=== PATIENT | female | born 1955 | race Caucasian/White ===

== ENCOUNTER → 2020-06-04 10:02 | Outpatient (BNVA) | payer OTHER, SELFPAY | PROVIDERS: PCP Internal Medicine; Visit Provider Hospitalist | DX: Z76.89 Persons encountering health services in other specified circumstances (principal) ==

== ENCOUNTER → 2020-09-03 08:29 | Outpatient (BNVA) | payer OTHER, SELFPAY | PROVIDERS: PCP Internal Medicine; Visit Provider Hospitalist ==

== ENCOUNTER → 2020-11-14 14:30 | Outpatient (BNVA) | payer OTHER, SELFPAY | PROVIDERS: PCP Internal Medicine; Visit Provider Hospitalist ==

== ENCOUNTER → 2021-01-13 14:21 | Outpatient (BNVA) | payer OTHER, SELFPAY | PROVIDERS: PCP Internal Medicine; Visit Provider Hospitalist | DX: R07.81 Pleurodynia (principal) ==

== ENCOUNTER → 2021-04-15 08:59 | Outpatient (BNVA) | payer OTHER, SELFPAY | PROVIDERS: PCP Internal Medicine; Visit Provider Hospitalist | DX: R07.81 Pleurodynia (principal) ==

== ENCOUNTER → 2021-06-10 08:35 | Outpatient (BNVA) | payer OTHER, SELFPAY | PROVIDERS: PCP Internal Medicine; Visit Provider Hospitalist | DX: R07.81 Pleurodynia (principal) ==

== ENCOUNTER → 2021-08-03 13:35 | Outpatient (BNVA) | payer OTHER, SELFPAY | PROVIDERS: PCP Internal Medicine; Visit Provider Hospitalist ==

== ENCOUNTER → 2021-09-28 10:21 | Outpatient (BNVA) | payer OTHER, SELFPAY | PROVIDERS: PCP Internal Medicine; Visit Provider Hospitalist | DX: Z13.89 Encounter for screening for other disorder (principal) ==

== ENCOUNTER → 2022-08-30 09:56 | Outpatient (BNVA) | payer OTHER, MEDICARE, SELFPAY | PROVIDERS: PCP Internal Medicine; Visit Provider Hospitalist | DX: Z13.89 Encounter for screening for other disorder (principal) ==

== ENCOUNTER 2022-10-27 09:09 | Outpatient (REF) | payer OTHER, MEDICARE, SELFPAY | END 2022-10-27 09:10 | disposition home or self-care (01) | LOC: HO.MDS 09:09 | PROVIDERS: Visit Provider Hospitalist | DX: J45.50 Severe persistent asthma, uncomplicated (principal) | CPT/HCPCS: 96372; J2356 ==

== ENCOUNTER 2022-11-24 09:03 | Outpatient (REF) | payer OTHER, MEDICARE, SELFPAY | END 2022-11-24 09:04 | disposition home or self-care (01) | LOC: HO.MDS 09:03 | PROVIDERS: Visit Provider Hospitalist | DX: J45.50 Severe persistent asthma, uncomplicated (principal) | CPT/HCPCS: 96372; 96374; J2356; J2930 ==

== ENCOUNTER → 2022-12-01 08:26 | Outpatient (BNVA) | payer OTHER, MEDICARE, SELFPAY | PROVIDERS: PCP Internal Medicine; Visit Provider Hospitalist ==

== ENCOUNTER 2023-02-02 08:43 | Outpatient (AMB) | payer OTHER, MEDICARE, SELFPAY ==
[2023-02-02 08:53] VITALS: BP 118/60; PULSE 89; O2SAT 95; BMI 29.5
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
== END 2023-02-02 09:17 | disposition home or self-care (01) ==
PROVIDERS: PCP Internal Medicine; Visit Provider Hospitalist
DX: J45.51 Severe persistent asthma with (acute) exacerbation (principal); I26.99 Other pulmonary embolism without acute cor pulmonale; G47.33 Obstructive sleep apnea (adult) (pediatric); Z99.89 Dependence on other enabling machines and devices; J98.11 Atelectasis; R06.02 Shortness of breath; R91.8 Other nonspecific abnormal finding of lung field; J38.3 Other diseases of vocal cords
CPT/HCPCS: 99214

== ENCOUNTER → 2023-02-02 08:43 | Outpatient (BNVA) | payer OTHER, MEDICARE, SELFPAY | PROVIDERS: PCP Internal Medicine; Visit Provider Hospitalist | DX: I26.99 Other pulmonary embolism without acute cor pulmonale (principal) ==

== ENCOUNTER 2023-03-28 09:00 | Outpatient (REF) | payer OTHER, MEDICARE, SELFPAY | END 2023-03-28 09:01 | disposition home or self-care (01) | LOC: HO.MDS 09:00 | PROVIDERS: Visit Provider Hospitalist | DX: J45.50 Severe persistent asthma, uncomplicated (principal) | CPT/HCPCS: 96372; J2356 ==

== ENCOUNTER 2023-04-06 08:25 | Outpatient (AMB) | payer OTHER, MEDICARE, SELFPAY ==
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
[2023-04-06 08:33] VITALS: BP 110/70; PULSE 79; O2SAT 100; BMI 29.5
== END 2023-04-06 08:57 | disposition home or self-care (01) ==
PROVIDERS: PCP Internal Medicine; Visit Provider Hospitalist
DX: R07.81 Pleurodynia (principal); J45.51 Severe persistent asthma with (acute) exacerbation; I26.99 Other pulmonary embolism without acute cor pulmonale; R06.02 Shortness of breath; R91.8 Other nonspecific abnormal finding of lung field; J38.3 Other diseases of vocal cords; R78.89 Finding of other specified substances, not normally found in blood; G47.33 Obstructive sleep apnea (adult) (pediatric); Z99.89 Dependence on other enabling machines and devices
CPT/HCPCS: 99214

== ENCOUNTER → 2023-04-06 08:25 | Outpatient (BNVA) | payer OTHER, MEDICARE, SELFPAY | PROVIDERS: PCP Internal Medicine; Visit Provider Hospitalist | DX: I26.99 Other pulmonary embolism without acute cor pulmonale (principal) ==

== ENCOUNTER 2023-04-27 09:05 | Outpatient (REF) | payer OTHER, MEDICARE, SELFPAY | END 2023-04-27 09:06 | disposition home or self-care (01) | LOC: HO.MDS 09:05 | PROVIDERS: Visit Provider Hospitalist | DX: J45.50 Severe persistent asthma, uncomplicated (principal) | CPT/HCPCS: 96372; J2356 ==

== ENCOUNTER 2023-05-25 09:08 | Outpatient (REF) | payer OTHER, MEDICARE, SELFPAY | END 2023-05-25 09:09 | disposition home or self-care (01) | LOC: HO.MDS 09:08 | PROVIDERS: Visit Provider Hospitalist | DX: J45.50 Severe persistent asthma, uncomplicated (principal) | CPT/HCPCS: 96372; J2356 ==

== ENCOUNTER 2023-06-08 08:48 | Outpatient (AMB) | payer MEDICARE, OTHER, SELFPAY ==
[2023-06-08 08:59] VITALS: BP 110/60; PULSE 89; O2SAT 96; BMI 27.3
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
== END 2023-06-08 09:40 | disposition home or self-care (01) ==
PROVIDERS: PCP Internal Medicine; Visit Provider Hospitalist
DX: R07.81 Pleurodynia (principal); J45.51 Severe persistent asthma with (acute) exacerbation; I26.99 Other pulmonary embolism without acute cor pulmonale; R06.02 Shortness of breath; R91.8 Other nonspecific abnormal finding of lung field; J38.3 Other diseases of vocal cords; G47.33 Obstructive sleep apnea (adult) (pediatric); Z99.89 Dependence on other enabling machines and devices
CPT/HCPCS: 99214

== ENCOUNTER → 2023-06-08 08:48 | Outpatient (BNVA) | payer MEDICARE, OTHER, SELFPAY | PROVIDERS: PCP Internal Medicine; Visit Provider Hospitalist | DX: J45.51 Severe persistent asthma with (acute) exacerbation (principal); G47.33 Obstructive sleep apnea (adult) (pediatric); R91.8 Other nonspecific abnormal finding of lung field; I26.99 Other pulmonary embolism without acute cor pulmonale; R06.02 Shortness of breath; R07.81 Pleurodynia; J38.3 Other diseases of vocal cords; Z99.89 Dependence on other enabling machines and devices | CPT/HCPCS: 99212 ==

== ENCOUNTER 2023-06-23 13:07 | Outpatient (REF) | payer MEDICARE, OTHER, SELFPAY | END 2023-06-23 13:08 | disposition home or self-care (01) | LOC: HO.MDS 13:07 | PROVIDERS: Visit Provider Hospitalist | DX: J45.50 Severe persistent asthma, uncomplicated (principal) | CPT/HCPCS: 96372; J2356 ==

== ENCOUNTER 2023-07-18 08:25 | Outpatient (REF) | payer MEDICARE, OTHER, SELFPAY | END 2023-07-18 08:26 | disposition home or self-care (01) | LOC: HO.MDS 08:25 | PROVIDERS: Visit Provider Hospitalist | DX: J45.50 Severe persistent asthma, uncomplicated (principal) | CPT/HCPCS: 96372; J2356 ==

== ENCOUNTER 2023-08-01 09:23 | Outpatient (AMB) | payer MEDICARE, OTHER, SELFPAY ==
[2023-08-01 09:27] VITALS: BP 126/70; PULSE 75; O2SAT 96; BMI 26.7
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
== END 2023-08-01 09:47 | disposition home or self-care (01) ==
PROVIDERS: PCP Internal Medicine; Visit Provider Hospitalist
DX: R07.81 Pleurodynia (principal); J45.51 Severe persistent asthma with (acute) exacerbation; I26.99 Other pulmonary embolism without acute cor pulmonale; R06.02 Shortness of breath; R91.8 Other nonspecific abnormal finding of lung field; J38.3 Other diseases of vocal cords; G47.33 Obstructive sleep apnea (adult) (pediatric); Z99.89 Dependence on other enabling machines and devices; J10.1 Influenza due to other identified influenza virus with other respiratory manifestations
CPT/HCPCS: 99214

== ENCOUNTER → 2023-08-01 09:23 | Outpatient (BNVA) | payer MEDICARE, OTHER, SELFPAY | PROVIDERS: PCP Internal Medicine; Visit Provider Hospitalist | DX: J45.51 Severe persistent asthma with (acute) exacerbation (principal); R07.81 Pleurodynia; I26.99 Other pulmonary embolism without acute cor pulmonale; R06.02 Shortness of breath; R91.8 Other nonspecific abnormal finding of lung field; J38.3 Other diseases of vocal cords; J10.1 Influenza due to other identified influenza virus with other respiratory manifestations; G47.33 Obstructive sleep apnea (adult) (pediatric); Z99.89 Dependence on other enabling machines and devices | CPT/HCPCS: 96372; 99212; J2930 ==

== ENCOUNTER 2023-08-15 09:08 | Outpatient (REF) | payer MEDICARE, OTHER, SELFPAY ==
[2023-08-15 09:12] VITALS: BP 112/59; PULSE 86; RESP 18; TEMP 36.4; O2SAT 98; BMI 26.7
== END 2023-08-15 09:09 | disposition home or self-care (01) ==
LOC: HO.MDS 09:08
PROVIDERS: Visit Provider Hospitalist
DX: J45.50 Severe persistent asthma, uncomplicated (principal)
CPT/HCPCS: 96372; J2356

== ENCOUNTER 2024-02-09 09:37 | Outpatient (AMB) | payer MEDICARE, OTHER, SELFPAY ==
[2024-02-09 09:42] VITALS: BP 118/68; PULSE 80; O2SAT 96; BMI 26.7
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
== END 2024-02-09 10:14 | disposition home or self-care (01) ==
PROVIDERS: PCP Internal Medicine; Visit Provider Hospitalist
DX: J45.51 Severe persistent asthma with (acute) exacerbation (principal); I26.99 Other pulmonary embolism without acute cor pulmonale; R06.02 Shortness of breath; R91.8 Other nonspecific abnormal finding of lung field; J38.3 Other diseases of vocal cords; G47.33 Obstructive sleep apnea (adult) (pediatric); Z99.89 Dependence on other enabling machines and devices
CPT/HCPCS: 99214; G2211

== ENCOUNTER → 2024-02-09 09:37 | Outpatient (BNVA) | payer MEDICARE, OTHER, SELFPAY | PROVIDERS: PCP Internal Medicine; Visit Provider Hospitalist | DX: J44.9 Chronic obstructive pulmonary disease, unspecified (principal); J45.51 Severe persistent asthma with (acute) exacerbation; G47.33 Obstructive sleep apnea (adult) (pediatric); I26.99 Other pulmonary embolism without acute cor pulmonale; R91.8 Other nonspecific abnormal finding of lung field; J38.3 Other diseases of vocal cords; I74.9 Embolism and thrombosis of unspecified artery; Z99.89 Dependence on other enabling machines and devices | CPT/HCPCS: 99212 ==

== ENCOUNTER 2024-05-08 09:26 | Outpatient (AMB) | payer MEDICARE, OTHER, SELFPAY ==
[2024-05-08 09:28] VITALS: BP 126/64; PULSE 97; O2SAT 98; BMI 27.7
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
== END 2024-05-08 10:09 | disposition home or self-care (01) ==
PROVIDERS: PCP Internal Medicine; Visit Provider Hospitalist
DX: J45.51 Severe persistent asthma with (acute) exacerbation (principal); J01.90 Acute sinusitis, unspecified; I26.99 Other pulmonary embolism without acute cor pulmonale; R06.02 Shortness of breath; R91.8 Other nonspecific abnormal finding of lung field; J38.3 Other diseases of vocal cords; G47.33 Obstructive sleep apnea (adult) (pediatric); Z99.89 Dependence on other enabling machines and devices
CPT/HCPCS: 99214; G2211

== ENCOUNTER → 2024-05-08 09:26 | Outpatient (BNVA) | payer MEDICARE, OTHER, SELFPAY | PROVIDERS: PCP Internal Medicine; Visit Provider Hospitalist | DX: J44.9 Chronic obstructive pulmonary disease, unspecified (principal); J45.51 Severe persistent asthma with (acute) exacerbation; J38.3 Other diseases of vocal cords; J01.90 Acute sinusitis, unspecified; G47.33 Obstructive sleep apnea (adult) (pediatric); I26.99 Other pulmonary embolism without acute cor pulmonale; R06.02 Shortness of breath; R91.8 Other nonspecific abnormal finding of lung field; Z79.52 Long term (current) use of systemic steroids; Z99.89 Dependence on other enabling machines and devices | CPT/HCPCS: 99212 ==

== ENCOUNTER 2024-05-17 09:20 | Outpatient (AMB) | payer MEDICARE, OTHER, SELFPAY ==
[2024-05-17 09:24] VITALS: BP 118/60; PULSE 97; O2SAT 96; BMI 27.5
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
--- OUTSIDE RECORDS SUMMARY | 2024-05-17 09:29 | XMS_ITS ---
Author Organization [facility] Address [address] [phone] Care Team Providers Care Plant Breeder Scientist Name Role Phone [facility] Primary Care Provider [phone] Allergies Allergen (clinical drug ingredient) Drug/Non Drug Allergy documented on EMR Reaction Allergy Type Onset Date Status sulfamethoxazole / trimethoprim Bactrim Unknown Drug Allergy Active diazepam Diazepam Unknown Drug Allergy Active Iodine Unknown Drug Allergy Active levofloxacin Levofloxacin Unknown Drug Allergy A ctive metoclopramide Metoclopramide HCl Unknown Drug Allergy Active omeprazole Omeprazole Unknown Drug Allergy Activ e Omnipaque Unknown Drug Allergy Active paroxetine Paxil Unknown Drug Allergy Active penicillin G Penicillin G Sodium Unknown Drug Allergy Active metoclopramide Reglan Unknown Drug Allergy Ac tive Sulfamethoxazole Unknown Drug Allergy Active Latex Gloves Unknown Drug Allergy Acti ve roflumilast Roflumilast Unknown Drug Allergy Act diya tiotropium Spiriva Respimat Chest Pain Drug Allergy Active Black Pepper-Turmeric Unknown Drug Allergy Active REASON FOR VISIT 1 week f/u Asthma Medications Medication SIG (Take, Route, Frequency, Duration) Notes Start Date End Date Status Doxycycline Monohydrate 100 MG Oral for 14 Days Active predniSONE 10 MG 1 tablet Orally Once a day Active Ramipril 10 MG 1 capsule Orally Onc e a day for 90 days Active Chlorthalidone 25 MG 0.5 Tablet Orally O nce a day for 90 days 01/02/2020 05/04/2025 Active Ipratropium-Albuterol 0.5-2.5 (3) MG/3ML 3 mL as needed Inhalation every 4 hrs for 90 days Not-Taking Combivent Respimat 20-100 MCG/ACT 1 puff as needed Inhalation every 6 hrs for 90 days Not-Taking Mucinex 600 MG 1 tablet as needed Orally every 12 hrs Not-Taking Trelegy Ellipta 100-62.5-25 MCG/ACT 1 puff Inhalation Once a day for 90 days Active Tezspire 210 MG/1.91ML as directed Subcutaneous Active Budesonide 0.5 MG/2ML 1 mL Inhalation Tw ice a day Active NexIUM 20 MG 1 capsule Orally Onc e a day for 90 days Active Claritin 10 MG 1 tablet Orally Once a day for 90 days 10/11/2024 Active Tylenol Extra Strength 500 MG 1 tablet as needed Orally every 6 hrs Active Vitamin D 125 MCG (5000 UT) 1 capsule Orally Once a day Active EpiPen 2-Leonardo 0.3 MG/0.3ML as directed Injection for 30 days 10/19/2022 Active Singulair 10 MG 1 tablet in the evening Orally Once a day for 90 days Active Erythromycin 2 % 1 application Externally Twice a day for 30 days 01/19/2023 Active ProAir RespiClick 108 (90 Base) MCG/ACT 2 puff as needed every 6 hrs for 90 days Active Social History Tobacco Use: Social History Observation Description Date Details (start date - stop date) Never Smoker NA - NA Alcohol Screen (Audit-C) Question Answer Notes Did you have a drink containing alcohol in the p ast year? No Points 0 Interpretation Negative Tobacco Control (Standard) Question Answer Notes Tobacco use: Nonsmoker Vital Signs Temperature 95.3 degrees Fahrenheit 05/09/20 24 Height 65 in 05/09/2024 Encounters Encounter Location Date Provider Diagnosis Liana Richey MD [address] [phone] 05/09/2024 L[facility] Moderate persistent asthma with (acute) exacerbation J45.41 Assessments Encounter Date Diagnosis (ICD Code) Assessment Notes Treatment Notes Treatment Clinical Notes Section Notes 05/09/2024 Moderate persistent asthma with (acute) exacerbation (ICD-10 - J45.41) Her peak flows are stable in the low 200s. She has seen pulmonary and she has been started on inhaled budesonide. In addition she was given an extension for her absence from work based on pulmonary evaluation. She will follow-up with pulmonary and taper down her prednisone until off. Can follow-up with prior pulmonary in terms of capacity and ability to return to work as well. 05/09/2024 Other This note was created with voice dictation recognition software and may contain errors of grammar and syntax. Also labs were reviewed with patient. Plan Of Treatment Medication Medication Name Sig Start Date Stop Date Notes predniSONE 10 MG 1 tablet Orally Once a day Ramipril 10 MG 1 capsule Orally Onc e a day for 90 days Chlorthalidone 25 MG 0.5 Tablet Orally O nce a day for 90 days 01/02/2020 05/04/2025 Next Appt Details Follow Up: 3 Months, Reason: Hypertension Provider Name:Liana Richey , 08/13/2024 03:00:00 PM, [address] [place] [address], [phone], Provider Name:Liana Richey , 04/30/2025 09:00:00 AM, [address] [place] [address], [phone], Progress Notes * Lorenza BOJORQUEZ FDOB: (68 yo F)Acc No.[id number]:05/09/2024 Progress Note Patient:Lorenza ROSS Provider:?[facility] MD :1955???Age:68 Y???Sex:Female D ate:05/09/2024 Address:[address] [place], [place] [phone] Subjective: * Chief Complaints: * ???1 week f/u Asthma * HPI: ???Asthma:?The patient presents for follow-up of asthma?which was diagnosed years ago.?Gastroesophageal reflux disease:?The patient presents for f/u of gastroesophageal reflux?that is long- standing.?Calcium abnormalities:?The patient presents for follow-up of calcium abnormality?which was diagnosed a year ago, vitamin D deficiency.?Chronic kidney disease:?Classification of renal failure is?Stage 2.?Glomerular filtration rate?CKD-EPI calculated at: 80.?Hypertension:?Patient presents for follow-up of hypertension?which is long-standing.? * Medical History:? * Surgical History:?Appendecto my 1998Tonsillectomy 1982Cholecystectomy TMJ Surgery, BL Bone spurs B/L rotator cuff tear repairs 05/2021 * Hospitalization/Major Diagno stic Procedure:?Asthma sthma 02/2022 * Family History:?Father: dece ased, Atrial fibrillation, hypertension, CHF, skin cancer at 86 years old.?Spouse: alive 67 yrs, Diabetes, hypertension.?Mother: , Lupus, diabetes, hypertension. at 66 years old.?Son(s): alive 32 yrs, hypothyroid.?Daughter(s): alive 41 yrs, , SVT, asthma 1 daughter alive 1985 asthma, polycystic syndrome , ulcerative colitis , anxiety, 1 daughter alive 1988 asthma ,migrainesLupus antibodies.?Siblings: alive, Hypertension, atrial fibrillation, history of lymphoma.?Maternal aunt: skin cancer.?1 sister(s) . 1 son(s) , 3 daughter(s) - healthy. .? Cousin: asthma No family history of: cancer-breast No family history of: cancer-colon Father: CVA (stroke) Mother: Diabetes, Hypertension Sister: Hyperlipidemia (AWV) Family history verified no changes since last visit. * Social History:?Tobacco Use:?Tobacco Control (Standard)?Tobacco use:?Nonsmoker ???Drugs/Alcohol:?Drugs?Have you used drugs other than those for medical reasons in the past 12 months??No ?Alcohol Screen (Audit-C)?Did you have a drink containing alcohol in the past year??No ?Points?0 ?Interpretation?Negative ?Caffeine?Intake:?none ?Do you smoke marijuana?: Denies. ?Do you drink alcohol?: No. ???Miscellaneous:?Exercise: yes, walking. 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 ???Household:?Household?Marital status:? * Medications:?TakingpredniSON E 10 MG Tablet 2 tablet Orally Once a day Erythromycin 2 % Gel 1 application Externally Twice a day ProAir RespiClick 108 (90 Base) MCG/ACT Aerosol Powder Breath Activated 2 puff as needed every 6 hrs Singulair 10 MG Tablet 1 tablet in the evening Orally Once a day Vitamin D 125 MCG (5000 UT) Capsule 1 capsule Orally Once a day Tylenol Extra Strength 500 MG Tablet 1 tablet as needed Orally every 6 hrs NexIUM 20 MG Capsule Delayed Release 1 capsule Orally Once a day Claritin 10 MG Tablet 1 tablet Orally Once a day , stop date 10/11/2024Ramipril 10 MG Capsule 1 capsule Orally Once a day Chlorthalidone 25 MG Tablet 0.5 Tablet Orally Once a day , stop date 05/23/2024EpiPen 2-Leonardo 0.3 MG/0.3ML Solution Auto-injector as directed Injection Trelegy Ellipta 100-62.5-25 MCG/ACT Aerosol Powder Breath Activated 1 puff Inhalation Once a day Tezspire 210 MG/1.91ML Solution Prefilled Syringe as directed Subcutaneous Budesonide 0.5 MG/2ML Suspension 1 mL Inhalation Twice a day Doxycycline Monohydrate 100 MG Tablet Oral Taking predniSONE 10 MG Tablet 2 tablet Orally Once a day Taking Erythromycin 2 % Gel 1 application Externally Twice a day Taking ProAir RespiClick 108 (90 Base) MCG/ACT Aerosol Powder Breath Activated 2 puff as needed every 6 hrs Taking Singulair 10 MG Tablet 1 tablet in the evening Orally Once a day Taking Vitamin D 125 MCG (5000 UT) Capsule 1 capsule Orally Once a day Taking Tylenol Extra Strength 500 MG Tablet 1 tablet as needed Orally every 6 hrs Taking NexIUM 20 MG Capsule Delayed Release 1 capsule Orally Once a day Taking Claritin 10 MG Tablet 1 tablet Orally Once a day , stop date 10/11/2024Taking Ramipril 10 MG Capsule 1 capsule Orally Once a day Taking Chlorthalidone 25 MG Tablet 0.5 Tablet Orally Once a day , stop date 05/23/2024Taking EpiPen 2-Leonardo 0.3 MG/0.3ML Solution Auto- injector as directed Injection Taking Trelegy Ellipta 100-62.5-25 MCG/ACT Aerosol Powder Breath Activated 1 puff Inhalation Once a day Taking Tezspire 210 MG/1.91ML Solution Prefilled Syringe as directed Subcutaneous Taking Budesonide 0.5 MG/2ML Suspension 1 mL Inhalation Twice a day Taking Doxycycline Monohydrate 100 MG Tablet Oral Not-Taking/PRNMucinex 600 MG Tablet Extended Release 12 Hour 1 tablet as needed Orally every 12 hrs Combivent Respimat 20-100 MCG/ACT Aerosol Solution 1 puff as needed Inhalation every 6 hrs Ipratropium-Albuterol 0.5-2.5 (3) MG/3ML Solution 3 mL as needed Inhalation every 4 hrs Medication List reviewed and reconciled with the patientNot-Taking/PRN Mucinex 600 MG Tablet Extended Release 12 Hour 1 tablet as needed Orally every 12 hrs Not-Taking/PRN Combivent Respimat 20-100 MCG/ACT Aerosol Solution 1 puff as needed Inhalation every 6 hrs Not-Taking/PRN Ipratropium- Albuterol 0.5-2.5 (3) MG/3ML Solution 3 mL as needed Inhalation every 4 hrs Medication List reviewed and reconciled with the patient * Allergies:?Penicillin G Sodi umLevofloxacinBactrimLatex GlovesOmnipaqueReglanRoflumilastOmeprazoleMetoclopramide HClDiazepamPaxilSulfamethoxazoleIodineSpiriva Respimat: Chest Pain - Side EffectsBlack Pepper-Turmericno[Allergies Verified] Objective: * Vitals:?Temp:95.3F, Ht:65in. Past Vitals:* 05/02/2024 Temp:96.4F, HR:89/min, Ht:65 in, Oxygen sat %:99% * 04/25/2024 Temp:96.7F, HR:88/min, Wt:18 5lbs, BMI:30.78Index, Ht:65in, Oxygen sat %:99% * 04/17/2024 Temp:97.2F, HR:85/min, BP:Si tting Right Arm: 122/64mm Hg, Wt:185lbs, BMI:30.78Index, Ht:65in, Oxygen sat %:95% * Examination: ???General Examination: ?GENERAL APPEARANCE:?Age appropriate, in no acute distress, well developed, well nourished.?HEAD:? atraumatic, normocephalic.?EYES:? sclera anicteric, extraocular movement full and smooth.?HEART:?regular rate and rhythm, S1, S2 normal.?LUNGS:?clear at baseline with forced expiratory wheeze.?EXTREMITIES:?no clubbing, cyanosis, or edema.?NEUROLOGIC:?alert and oriented, gait normal.?PSYCH:? good eye contact, speech clear.? Assessment: * Assessment: 1.?Moderate persistent asthm a with (acute) exacerbation - J45.41 (Primary)??? Plan: * Treatment: 2.?Others? Refill Ramipril Capsule, 10 MG, 1 capsule, Orally, Once a day, 90 days, 90, Refills 3;?Refill Chlorthalidone Tablet, 25 MG, 0.5 Tablet, Orally, Once a day, 90 days, 45, Refills 3.?? Clinical Notes: This note was created with voice dictation recognition software and may contain errors of grammar and syntax. Also labs were reviewed with patient.?? * Procedure Codes:? * Follow Up:?3 Months (Reason: Hypertension) * Billing Information: * Visit Code:? 53280 Office Visit, Est Pt., Level 3. * Procedure Codes:? Care Plan Details* * Sign off status: Completed true * Provider:?[facility] MD Date:?05/09 Generated for Isaak dewitt/Rut/Akilaitting on:?05/17/2024 09:28 AM EST History and Physical Notes * HPI (History of Present Illness) Category Sub-Category Detail Notes Category Not es Gastroesophageal reflux disease The patient presents for f/u of gastroesophageal reflux that is long-standing Hypertension Patient presents for follow-up of hypertension which is long-standing Chronic kidney disease Classification of renal failure is Stage 2 Glomerular filtration rate CKD-EPI calcu lated at: 80 Asthma The patient presents for follow-up of asthma which was diagnosed years ago Calcium abnormalities The patient presen ts for follow-up of calcium abnormality which was diagnosed a year ago, vitamin D deficiency Examination Category Sub-Category Detail Notes Category Not es General Examination GENERAL APPEARANCE: Age appr opriate, in no acute distress, well developed, well nourished HEAD: atraumatic, normocep halic EYES: sclera anicteric, ex traocular movement full and smooth HEART: regular rate and rhy thm, S1, S2 normal LUNGS: clear at baseline wi th forced expiratory wheeze NEUROLOGIC: alert and oriented, gait normal EXTREMITIES: no clubbing, cyanosi s, or edema PSYCH: good eye contact, sp eech clear
--- OUTSIDE RECORDS SUMMARY | 2024-05-17 09:29 | XMS_ITS ---
Author Organization [facility] Address [address] [place] [phone] Care Team Providers Care Telephone Clerk Telegraph Office Name Role Phone [facility] Primary Care Provider REASON FOR VISIT Jury Letter Request Encounters Encounter Location Date Provider Diagnosis Liana Richey MD [address] [place] [address] [place] [phone] 05/11/2024 [facility] Plan Of Treatment Next Appt Details Provider Name:Liana Richey , 08/13/2024 03:00:00 PM, [address] [place] [address], [phone], Provider Name:Liana Richey , 04/30/2025 09:00:00 AM, [address] [place] [address], [phone], Progress Notes * Lorenza BOJORQUEZ FDOB: (68 yo F)Acc No.[id number]:05/11/2024 Patient:?ROSEY Lorenza Cabrales :1955???Age:68 Y???Sex:Female [place]: [place], [address] * * Date:?
--- OUTSIDE RECORDS SUMMARY | 2024-05-17 09:29 | XMS_ITS ---
Author Organization [facility] Address [address] [phone] Care Team Providers Care Home Visitor Home Base Head Start Name Role Phone [facility] Primary Care Provider [phone] Allergies Allergen (clinical drug ingredient) Drug/Non Drug [...] Active REASON FOR VISIT 1 week f/u asthma Medications Medication SIG (Take, Route, Frequency, Duration) Notes Start Date End Date Status Tezspire 210 MG/1.91ML as directed Subcutaneous Active Trelegy Ellipta 100-62.5-25 MCG/ACT 1 puff Inhalation Once a day for 90 days Active Mucinex 600 MG 1 tablet as needed Orally every 12 hrs Not-Taking EpiPen 2-Leonardo 0.3 MG/0.3ML as directed Injection for 30 days 10/19/2022 Active Chlorthalidone 25 MG 0.5 Tablet Orally O nce a day for 90 days 01/02/2020 05/23/2024 Active Vitamin D 125 MCG (5000 UT) 1 capsule Orally Once a day Active NexIUM 20 MG 1 capsule Orally Onc e a day for 90 days Active Tylenol Extra Strength 500 MG 1 tablet as needed Orally every 6 hrs Active Ramipril 10 MG 1 capsule Orally Onc e a day for 90 days Active Claritin 10 MG 1 tablet Orally Once a day for 90 days 10/11/2024 Active Erythromycin 2 % 1 application Externally Twice a day for 30 days 01/19/2023 Active predniSONE 10 MG 2 tablet Orally Once a day Active Singulair 10 MG 1 tablet in the evening Orally Once a day for 90 days Active ProAir RespiClick 108 (90 Base) MCG/ACT 2 puff as needed every 6 hrs for 90 days Active Ipratropium-Albuterol 0.5-2.5 (3) MG/3ML 3 mL as needed Inhalation every 4 hrs for 90 days Not-Taking Combivent Respimat 20-100 MCG/ACT 1 puff as needed Inhalation every 6 hrs for 90 days Not-Taking Social History Tobacco Use: Social History Observation Description Date Details (start date - stop date) Never Smoker NA - NA Alcohol Screen (Audit-C) Question Answer Notes Did you have a drink containing alcohol in the p ast year? No Points 0 Interpretation Negative Tobacco Control (Standard) Question Answer Notes Tobacco use: Nonsmoker Vital Signs Temperature 96.4 degrees Fahrenheit 05/02/20 24 Heart Rate 89 /min 05/02/2024 Height 65 in 05/02/2024 Oximetry 99 % 05/02/2024 Encounters Encounter Location Date Provider Diagnosis Liana Richey MD [address] [phone] 05/02/2024 Liana Richey Moderate persistent asthma with (acute) exacerbation J45.41 Assessments Encounter Date Diagnosis (ICD Code) Assessment Notes Treatment Notes Treatment Clinical Notes Section Notes 05/02/2024 Moderate persistent asthma with (acute) exacerbation (ICD-10 - J45.41) Her peak flows are about 220 for most of the time now. They are relatively stable. She still using Combivent. Given the stability of her peak flows can try to taper down prednisone to 20 mg and reevaluate status. 05/02/2024 Other This note was created with voice dictation recognition software and may contain errors of grammar and syntax. Plan Of Treatment Medication Medication Name Sig Start Date Stop Date Notes predniSONE 10 MG 2 tablet Orally Once a day Next Appt Details Follow Up: 1 Week, Reason: A sthma Provider Name:Liana Richey , 08/13/2024 03:00:00 PM, [address] [place] [address], [phone], Provider Name:Isaaclety Kaiden , 04/30/2025 09:00:00 AM, [address] [place] [address], [phone], Progress Notes * Lorenza CURRIE FDOB: (68 yo F)Acc No.[id number]:05/02/2024 Progress Note Patient:?Lorenza CURRIE Provider:?Liana Richey MD :1955???Age:68 Y???Sex:Female D ate:05/02/2024 Address:[address] [place], [place] [phone] Subjective: * Chief Complaints: * ???1 week f/u asthma * HPI: ???Asthma:?The patient presents for follow-up [...] No. ???Miscellaneous:?Exercise: yes, walking. 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 ???Household:?Household?Marital status:? * Medications:?TakingErythromy hammad 2 % Gel 1 application Externally Twice [...] MG/1.91ML Solution Prefilled Syringe as directed Subcutaneous predniSONE 10 MG Tablet 3 tablet Orally Once a day Taking Erythromycin [...] date 05/23/2024Taking EpiPen 2-Leonardo 0.3 MG/0.3ML Solution Auto-injector as directed Injection Taking Trelegy Ellipta 100-62.5-25 MCG/ACT Aerosol Powder Breath Activated 1 puff Inhalation Once a day Taking Tezspire 210 MG/1.91ML Solution Prefilled Syringe as directed Subcutaneous Taking predniSONE 10 MG Tablet 3 tablet Orally Once a day Not-Taking/PRNMucinex 600 MG Tablet Extended Release 12 [...] as needed Inhalation every 6 hrs Not-Taking/PRN Ipratropium-Albuterol 0.5-2.5 (3) MG/3ML Solution 3 mL as needed Inhalation every 4 hrs Medication List reviewed and reconciled with the patient * Allergies:?Penicillin G Sodi umLevofloxacinBactrimLatex GlovesOmnipaqueReglanRoflumilastOmeprazoleMetoclopramide HClDiazepamPaxilSulfamethoxazoleIodineSpiriva Respimat: Chest Pain - Side EffectsBlack Pepper-Turmericno[Allergies Verified] Objective: * Vitals:?Temp:96.4F, HR:89/mi n, Ht:65in, Oxygen sat %:99%. Past Vitals:* 04/25/2024 Temp:96.7F, HR:88/min, Wt:18 5lbs, BMI:30.78Index, Ht:65in, Oxygen sat %:99% * 04/17/2024 Temp:97.2F, HR:85/min, BP:Si tting Right Arm: 122/64mm Hg, Wt:185lbs, BMI:30.78Index, Ht:65in, Oxygen sat %:95% * 04/09/2024 Temp:96.7F, HR:75/min, Wt:18 3lbs, BMI:30.45Index, Ht:65in, Oxygen sat %:97% * Examination: ???General Examination: ?GENERAL APPEARANCE:?Age appropriate, [...] - J45.41 (Primary)??? Plan: * Treatment: 2.?Others? Clinical Notes: This note was created with voice dictation recognition software and may contain errors of grammar and syntax.?? * Procedure Codes:? * Follow Up:?1 Week (Reason: A sthma) * Billing Information: * Visit Code:? 46762 Office Visit, Est Pt., Level 3. * Procedure Codes:? Care Plan Details* * Sign off status: Completed true * Provider:?Liana Richey MD Date:?05/02 Generated for Isaak dewitt/Rut/eTransmitting on:?05/17/2024 09:29 AM EST History and Physical Notes * [...]
--- OUTSIDE RECORDS SUMMARY | 2024-05-17 09:30 | XMS_ITS | Patient Health Record ---
Author Organization [facility] Address [address] [id number] Care Team Providers Care Cost Estimating Manager Name Role Phone [facility] Primary Care Provider [phone] Rachel Sanchez Unavailable [phone] Allergies Allergen (clinical drug ingredient) Drug/Non Drug [...] Active Black Pepper-Turmeric Unknown Drug Allergy Active Results Component Value Reference Range Notes HCV Antibody-[id number] Reviewed date:04/22/2024 07:39:03 AM Interpretation: Performing Lab:[facility], [address], [place], Phone - [phone], Director - Steve Notes/Report: Hep C Virus Ab Non Reactive Non Reactive HCV antibody alone does not differentiate between previously resolved infection and active infection. Equivocal and Reactive HCV antibody results should be followed up with an HCV RNA test to support the diagnosis of active HCV infection. LP+Non-HDL Cholesterol-[id number] Reviewed date:04/22/2024 07:39:03 AM Interpretation: Performing Lab:[facility] [place], [address] [place] [address], Phone - [phone], Director - MDJodry Notes/Report: Cholesterol, Total 215 100-199 mg/dL Triglycerides 146 0-149 mg/dL HDL Cholesterol 71 >39 mg/dL VLDL Cholesterol Manuel 25 5-40 mg/dL LDL Chol Calc ([facility]) 119 0-99 mg/dL Non-HDL Cholesterol 144 0-129 mg/dL Comp. Metabolic Panel (14)-3 Reviewed date:04/22/2024 07:39:03 AM Interpretation: Performing Lab:[facility] [place], [address] [place] [address], Phone - [phone], Director - MDJodry Notes/Report: Glucose 86 70-99 mg/dL BUN 18 8-27 mg/dL Creatinine 0.95 0.57-1.00 mg/dL eGFR 66 >59 mL/min/1.73 BUN/Creatinine Ratio 19 12-28 Sodium 141 134-144 mmol/L Potassium 4.1 3.5-5.2 mmol/L Chloride 98 96-106 mmol/L Carbon Dioxide, Total 25 20-29 mmol/L Calcium 9.7 8.7-10.3 mg/dL Protein, Total 6.8 6.0-8.5 g/dL Albumin 4.2 3.9-4.9 g/dL Globulin, Total 2.6 1.5-4.5 g/dL Bilirubin, Total 0.5 0.0-1.2 mg/dL Alkaline Phosphatase 91 44-121 IU/L AST (SGOT) 15 0-40 IU/L ALT (SGPT) 16 0-32 IU/L Albumin/Creatinine Ratio,Uri ne-[id number] Reviewed date:04/22/2024 07:39:03 AM Interpretation: Performing Lab:[facility] [place], [address] [facility], Phone - [phone], Director - MDJodry Notes/Report: Creatinine, Urine 58.8 Not Estab. mg/dL Albumin, Urine <3.0 Not Estab. ug/mL Alb/Creat Ratio <5 0-29 mg/g creat Normal: 0 - 29 Moderately increased: 30 - 300 Severely increased: >300 [id number] Reviewed date:04/22/2024 07:39:03 AM Interpretation: Performing Lab:[facility], [address] [place] [address], [place], Phone - [phone], Director - Steve Notes/Report: D-Dimer 0.35 0.00-0.49 mg/L FEU According to the assay millwright's published package insert, a normal (<0.50 mg/L FEU) D-dimer result in conjunction with a non-high clinical probability assessment, excludes deep vein thrombosis (DVT) and pulmonary embolism (PE) with high sensitivity. . D-dimer values increase with age and this can make VTE exclusion of an older population difficult. To address this, the [place] [employer], based on best available evidence and recent guidelines, recommends that clinicians use age-adjusted D-dimer thresholds in patients greater than 50 years of age with: a) a low probability of PE who do not meet all Pulmonary Embolism Rule Out Criteria, or b) in those with intermediate probability of PE. The formula for an age-adjusted D-dimer cut-off is age/100 . For example, a 60 year old patient would have an age-adjusted cut-off of 0.60 mg/L FEU and an 80 year old 0.80 mg/L FEU. URINARY MICROALBUMIN Reviewed date:07/11/2023 05:09:21 AM Interpretation: Performing Lab:Testing performed or reported by [facility], a Service of [address] [address] Christian Pierce MD, [employer] [facility]# [id number] Notes/Report: MICRO-ALBUMIN <12.0 (<20) MG/L The urine microalbumin test is designed to monitor renal function. When screening for Bence Minaya proteinuria, urine electrophoresis is recommended. MALB/CREAT RATIO Unable to calculate (0-20) MG/GM URINE CREAT FOR MICRO ALBUMIN 20.3 D-DIMER Reviewed date:07/11/2023 05:09:21 AM Interpretation: Performing Lab:Testing performed or reported by [facility] [employer], a Service of [address] [address] Christian Pierce MD, [employer] [facility]# [id number] Notes/Report: D-DIMER 0.31 (<1.01) mg/L FEU The millwright recommends that a d-Dimer value of <0.5 FEU mg/L can be used in conjunction with clinical criteria to help exclude Deep Vein Thrombosis (DVT) and/or Pulmonary Embolism (PE) in patients with a low pretest probability. COMPREHENSIVE METABOLIC PANE L Reviewed date:07/11/2023 05:09:21 AM Interpretation: Performing Lab:Testing performed or reported by [facility], a Service of [address] [address] Christian Pierce MD, [employer] [facility]# [id number] Notes/Report: GLUCOSE 97 (70-99) MG/DL BUN 14 (8-23) MG/DL CREATININE 0.9 (0.5-1.0) MG/DL SODIUM 144 (133-145) MMOL/L POTASSIUM 3.7 (3.6-5.2) MMOL/L CHLORIDE 102 (98-107) MMOL/L BICARBONATE 28 (22-29) MMOL/L ANION GAP 14 (4-17) ALBUMIN 4.3 (3.4-4.8) GM/DL CALCIUM 10.0 (8.6-10.5) MG/DL BILIRUBIN,TOTAL 0.5 (0-1.2) MG/DL TOTAL PROTEIN 6.8 (6.2-8.2) GM/DL AG RATIO 1.7 AST 16 (0-32) U/L ALK PHOS 93 (35-104) U/L ALT 14 (0-33) U/L ESTIMATED GFR CREATININE 70 Creatinine based estimated glomerular filtration (eGFR) in adults is calculated using the National Kidney Foundation recommended 2020 CKD-EPI equation. Estimates GFR from serum creatinine, age and sex. COMPLETE URINALYSIS Reviewed date:07/11/2023 05:09:21 AM Interpretation: Performing Lab:Testing performed or reported by [facility], a Service of [address] [address] Christian Pierce MD, [employer] [facility]# [id number] Notes/Report: APPEAR/COLOR COLORLESS CLEAR SP. GRAVITY <1.005 (1.002-1.030) URINE PH 7.0 (5.0-8.0) URINE ALBUMIN NEGATIVE (NEG) URINE GLUCOSE NEGATIVE (NEG) URINE KETONES NEGATIVE (NEG) URINE BILIRUBIN NEGATIVE (NEG) URINE HEMOGLOBIN NEGATIVE (NEG) URINE NITRITE NEGATIVE (NEG) URINE LEUKOCYTE 1+ (NEG) UROBILINOGEN NORMAL (NORM) MG/DL URINE WBCs <1 (0-5) /HPF URINE RBCs <1 (0-3) /HPF SQUAMOUS EPITH 1 (0-8) /HPF COMPLETE CBC WITH DIFF Reviewed date:07/11/2023 05:09:21 AM Interpretation: Performing Lab:Testing performed or reported by [facility], a Service of [address] [address] Christian Pierce MD, [employer] [facility]# [id number] Notes/Report: WBC 8.9 (4.0-11.0) K/MM3 RBC 4.73 (4.20-5.40) M/MM3 HGB 12.9 (11.7-15.5) GM/DL HCT 41.6 (35.7-45.8) % MCV 87.9 (80.0-100.0) FL MCH 27.3 (27.0-34.0) PG MCHC 31.0 (33.0-37.0) g/dL PLT 267 (150-460) K/MM3 RDW-SD 44.8 (<47.0) FL MPV 10.2 (9.4-12.4) FL AUTOMATED NRBC 0.0 ABS. NRBC 0.0 NEUT # 6.1 (1.3-7.0) K/MM3 LYMPH # 2.1 (0.8-3.1) K/MM3 MONO# 0.5 (0.4-0.9) K/MM3 EO # 0.1 (0.0-0.4) K/MM3 BASO # 0.0 (0.0-0.1) K/MM3 ABS. IMM GRAN 0.0 NEUT 68.6 (44-76) % LYMPH 23.9 (15-43) % MONOCYTE 5.3 (4.5-10.5) % EO 1.6 (0-6) % BASO 0.3 (0-2) % IMM GRAN 0.3 25OH VITAMIN D Reviewed date:07/11/2023 05:09:21 AM Interpretation: Performing Lab:Testing performed or reported by [facility], a Service of [address] [address] Christian Pierce MD, [employer] [place]# [id number] Notes/Report: 25OH VITAMIN D 23.2 (20-50) NG/ML Chest 2 Views Frontal and La t Reviewed date:04/25/2024 06:05:05 PM Interpretation: Performing Lab: Notes/Report: Examination: Chest performed on 04/25/2024. History: Cough. Findings: Frontal and lateral views of the chest are compared to a prior study dated 02/13/2024. The cardiac and mediastinal silhouettes are within normal limits. The lungs are clear. Osteophyte formation within the thoracic spine is noted. Impression: There is no acute cardiopulmonary disease. WSN: [id number] Ordering Physician: Liana Riche[facility] Dictated By: Michelle Child MD Examination: Chest performed on 04/25/2024. History: Cough. Findings: Frontal and lateral views of the chest are compared to a prior study dated 02/13/2024. The cardiac and mediastinal silhouettes are within normal limits. The lungs are clear. Osteophyte formation within the thoracic spine is noted. Impression: There is no acute cardiopulmonary disease. WSN: [id number] Ordering Physician: Liana R[facility]y Vitamin D, [id number] Reviewed date:04/22/2024 07:39:03 AM Interpretation: Performing Lab:[facility] [place], [address] [facility], Phone - [phone], Director - Steve Notes/Report: Vitamin D, 25-Hydroxy 23.6 30.0-100.0 ng/mL Vitamin D deficiency has been defined by the [place] [employer] and an Endocrine Society practice guideline as a level of serum 25-OH vitamin D less than 20 ng/mL (1,2). The Endocrine Society went on to further define vitamin D insufficiency as a level between 21 and 29 ng/mL (2). 1. IOM ([place] [employer]). 2010. Dietary reference intakes for calcium and D. [place]: The National Academies Press. 2. Daniel MF, Peace [place], Charles-Brannon LOPEZ, et al. Evaluation, treatment, and prevention of vitamin D deficiency: an Endocrine Society clinical practice guideline. JCEM. 2010; 96(7):1911-30. CBC With Differential/Platel et-[id number] Reviewed date:04/22/2024 07:39:03 AM Interpretation: Performing Lab:[facility] [place], [address] [facility], [place], Phone - [phone], Director - MDJodry Notes/Report: WBC 12.0 3.4-10.8 x10E3/uL RBC 5.06 3.77-5.28 x10E6/uL Hemoglobin 14.1 11.1-15.9 g/dL Hematocrit 43.0 34.0-46.6 % MCV 85 79-97 fL MCH 27.9 26.6-33.0 pg MCHC 32.8 31.5-35.7 g/dL RDW 13.3 11.7-15.4 % Platelets 281 150-450 x10E3/uL Neutrophils 69 Not Estab. % Lymphs 20 Not Estab. % Monocytes 9 Not Estab. % Eos 1 Not Estab. % Basos 0 Not Estab. % Neutrophils (Absolute) 8.3 1.4-7.0 x10E3/uL Lymphs (Absolute) 2.4 0.7-3.1 x10E3/uL Monocytes(Absolute) 1.1 0.1-0.9 x10E3/uL Eos (Absolute) 0.1 0.0-0.4 x10E3/uL Baso (Absolute) 0.0 0.0-0.2 x10E3/uL Immature Granulocytes 1 Not Estab. % Immature Grans (Abs) 0.1 0.0-0.1 x10E3/uL Urinalysis, Complete-[id number] Reviewed date:04/22/2024 07:39:03 AM Interpretation: Performing Lab:[facility] [place], [address] [place] [address], Phone - [phone], Director - [facility] Notes/Report: Specific Hana 1.011 1.005-1.030 pH 7.5 5.0-7.5 Urine-Color Yellow Yellow Appearance Clear Clear WBC Esterase 3+ Negative Protein Negative Negative/Trace Glucose Negative Negative Ketones Negative Negative Occult Blood Negative Negative Bilirubin Negative Negative Urobilinogen,Semi-Qn 0.2 0.2-1.0 mg/dL Nitrite, Urine Negative Negative Microscopic Examination See below: Micr oscopic was indicated and was performed. WBC 0-5 0 - 5 /hpf RBC None seen 0 - 2 /hpf Epithelial Cells (non renal) 0-10 0 - 10 /hpf Casts None seen None seen /lpf Bacteria Few None seen/Few Respiratory Profile, PCR Reviewed date:07/30/2023 10:00:17 AM Interpretation: Performing Lab:Testing performed or reported by [facility], a Service of [facility], [facility] [address], [place] [address] Christian Pierce MD, [employer] [place]# [id number] Notes/Report: Adenovirus Not Detected Reference range : Not Detected Coronavirus HKU1 (not COVID-19 Not Detected Reference range: Not Detected Coronavirus NL63 (not COVID-19 Not Detected Reference range: Not Detected Coronavirus 229E (not COVID-19 Not Detected Reference range: Not Detected Coronavirus OC43 (not COVID-19 Not Detected Reference range: Not Detected Human Metapneumovirus Not Detected Refere nce range: Not Detected Human Rhinovirus/Enterovirus Not Detected Reference range: Not Detected Influenza A DETECTED Reference range : Not Detected Influenza A/H1 TEST NOT PERFORMED (NOTE) Test not performed Influenza A/H1-2009 DETECTED Referenc e range: Not Detected Influenza A/H3 TEST NOT PERFORMED (NOTE) Test not performed Influenza B Not Detected Reference range : Not Detected Parainfluenza 1 Not Detected Reference ra nge: Not Detected Parainfluenza 2 Not Detected Reference ra nge: Not Detected Parainfluenza 3 Not Detected Reference ra nge: Not Detected Parainfluenza 4 Not Detected Reference ra nge: Not Detected Respiratory Syncytial Virus Not Detected Reference range: Not Detected Bordetella pertussis Not Detected Referen ce range: Not Detected Chlamydophila pneumoniae Not Detected Reference range: Not Detected Mycoplasma pneumoniae Not Detected Refere nce range: Not Detected Bordetella parapertussis Not Detected Reference range: Not Detected SARS-CoV-2 Not Detected Reference range: Not Detected Test performed by [facility], [address] [place] [id number] Vitamin D, [id number] Reviewed date:11/15/2023 05:38:04 PM Interpretation: Performing Lab:[facility], [address] [place] [address], [place], Phone - [phone], Director - Steve Notes/Report: Vitamin D, 25-Hydroxy 37.2 30.0-100.0 ng/mL Vitamin D deficiency has been defined by the [place] [employer] and an Endocrine Society practice guideline as a level of serum 25-OH vitamin D less than 20 ng/mL (1,2). The Endocrine Society went on to further define vitamin D insufficiency as a level between 21 and 29 ng/mL (2). 1. IOM ([place] [employer]). 2010. Dietary reference intakes for calcium and D. [place]: The National Academies Press. 2. Daniel MF, Peace CAMACHO, Vamsi LOPEZ, et al. Evaluation, treatment, and prevention of vitamin D deficiency: an Endocrine Society clinical practice guideline. JCEM. 2010; 96(7):1911-30. [id number] Reviewed date:11/15/2023 05:38:04 PM Interpretation: Performing Lab:[facility] [place], [address] [facility], Phone - [phone], Director - Steve Notes/Report: D-Dimer 0.71 0.00-0.49 mg/L FEU According to the assay millwright's published package insert, a normal (<0.50 mg/L FEU) D-dimer result in conjunction with a non-high clinical probability assessment, excludes deep vein thrombosis (DVT) and pulmonary embolism (PE) with high sensitivity. . D-dimer values increase with age and this can make VTE exclusion of an older population difficult. To address this, the [place] [employer], based on best available evidence and recent guidelines, recommends that clinicians use age-adjusted D-dimer thresholds in patients greater than 50 years of age with: a) a low probability of PE who do not meet all Pulmonary Embolism Rule Out Criteria, or b) in those with intermediate probability of PE. The formula for an age-adjusted D-dimer cut-off is age/100 . For example, a 60 year old patient would have an age-adjusted cut-off of 0.60 mg/L FEU and an 80 year old 0.80 mg/L FEU. Comp. Metabolic Panel (14)-3 [id number] Reviewed date:11/15/2023 05:38:04 PM Interpretation: Performing Lab:[facility] [place], [address] [facility], [place], Phone - [phone], Director - Steve Notes/Report: Glucose 91 70-99 mg/dL BUN 19 8-27 mg/dL Creatinine 0.90 0.57-1.00 mg/dL eGFR 71 >59 mL/min/1.73 BUN/Creatinine Ratio 21 12-28 Sodium 142 134-144 mmol/L Potassium 3.9 3.5-5.2 mmol/L Chloride 102 96-106 mmol/L Carbon Dioxide, Total 24 20-29 mmol/L Calcium 9.7 8.7-10.3 mg/dL Protein, Total 6.8 6.0-8.5 g/dL Albumin 4.4 3.9-4.9 g/dL Globulin, Total 2.4 1.5-4.5 g/dL A/G Ratio 1.8 1.2-2.2 Bilirubin, Total 0.3 0.0-1.2 mg/dL Alkaline Phosphatase 108 44-121 IU/L AST (SGOT) 15 0-40 IU/L ALT (SGPT) 15 0-32 IU/L LP+Non-HDL Cholesterol-[id number] 5 Reviewed date:11/15/2023 05:38:04 PM Interpretation: Performing Lab:[facility], [address] [place] [address], Phone - [phone], Director - Roseannay Notes/Report: Cholesterol, Total 219 100-199 mg/dL Triglycerides 85 0-149 mg/dL HDL Cholesterol 67 >39 mg/dL VLDL Cholesterol Manuel 15 5-40 mg/dL LDL Chol Calc ([facility]) 137 0-99 mg/dL Non-HDL Cholesterol 152 0-129 mg/dL PDF Report Reviewed date:11/15/2023 05:38:04 PM Interpretation: Performing Lab:[facility], [address] [place] [address], Phone - [phone], Director - Roseannay Notes/Report: Respiratory Panel w/ SARS-Co [id number] Reviewed date:12/02/2023 09:25:19 AM Interpretation: Performing Lab:[facility] [place], [address] [place] [address], Phone - [phone], Director - MDJodry Notes/Report: Clinical Information:SRC: Adenovirus Not Detected Not Detected Coronavirus HKU1 Not Detected Not Detected Coronavirus NL63 Not Detected Not Detected Coronavirus 229E Not Detected Not Detected Coronavirus OC43 Not Detected Not Detected SARS-CoV-2 Detected Not Detected Human Metapneumovirus Not Detected Not Detected Human Rhinovirus/Enterovirus Not Detected Not Detected Influenza A Not Detected Not Detected Influenza A/H1 TNP Test not perf ormed Influenza A/H1-2009 TNP Test not performed Influenza A/H3 TNP Test not perf ormed Influenza B Not Detected Not Detected Parainfluenza 1 Not Detected Not Detected Parainfluenza 2 Not Detected Not Detected Parainfluenza 3 Not Detected Not Detected Parainfluenza 4 Not Detected Not Detected Respiratory Syncytial Virus Not Detected Not Detected Bordetella parapertussis Not Detected Not Detected Bordetella pertussis Not Detected Not Detected Chlamydophila pneumoniae Not Detected Not Detected Mycoplasma pneumoniae Not Detected Not Detected PDF Report Reviewed date:12/02/2023 09:25:19 AM Interpretation: Performing Lab:[facility], [address] [place] [address], Phone - [phone], Director - [facility] Notes/Report: Clinical Information:SRC: Urinalysis, Complete-[id number] Reviewed date:01/30/2024 06:50:01 PM Interpretation: Performing Lab:[facility], [address] [place] [address], Phone - [phone], Director - [facility] Notes/Report: Specific Hana 1.011 1.005-1.030 pH 7.0 5.0-7.5 Urine-Color Yellow Yellow Appearance Clear Clear WBC Esterase 2+ Negative Protein Negative Negative/Trace Glucose Negative Negative Ketones Negative Negative Occult Blood Negative Negative Bilirubin Negative Negative Urobilinogen,Semi-Qn 0.2 0.2-1.0 mg/dL Nitrite, Urine Negative Negative Microscopic Examination See below: Micr oscopic was indicated and was performed. WBC 0-5 0 - 5 /hpf RBC None seen 0 - 2 /hpf Epithelial Cells (non renal) 0-10 0 - 10 /hpf Casts None seen None seen /lpf Bacteria None seen None seen/Few Vitamin D, [id number] Reviewed date:01/30/2024 06:50:01 PM Interpretation: Performing Lab:[facility], [address] [place] [address], Phone - [phone], Director - [facility] Notes/Report: Vitamin D, 25-Hydroxy 26.2 30.0-100.0 ng/mL Vitamin D deficiency has been defined by the [place] [employer] and an Endocrine Society practice guideline as a level of serum 25-OH vitamin D less than 20 ng/mL (1,2). The Endocrine Society went on to further define vitamin D insufficiency as a level between 21 and 29 ng/mL (2). 1. IOM ([place] [employer]). 2010. Dietary reference intakes for calcium and D. [facility]: The National Academies Press. 2. Daniel MF, [place], Vamsi LOPEZ, et al. Evaluation, treatment, and prevention of vitamin D deficiency: an Endocrine Society clinical practice guideline. JCEM. 2010; 96(7):1911-30. [id number] Reviewed date:01/30/2024 06:50:01 PM Interpretation: Performing Lab:[facility] [place], [address] [place] [address], Phone - [phone], Director - Steve Notes/Report: D-Dimer 0.46 0.00-0.49 mg/L FEU According to the assay millwright's published package insert, a normal (<0.50 mg/L FEU) D-dimer result in conjunction with a non-high clinical probability assessment, excludes deep vein thrombosis (DVT) and pulmonary embolism (PE) with high sensitivity. . D-dimer values increase with age and this can make VTE exclusion of an older population difficult. To address this, the [place] [employer], based on best available evidence and recent guidelines, recommends that clinicians use age-adjusted D-dimer thresholds in patients greater than 50 years of age with: a) a low probability of PE who do not meet all Pulmonary Embolism Rule Out Criteria, or b) in those with intermediate probability of PE. The formula for an age-adjusted D-dimer cut-off is age/100 . For example, a 60 year old patient would have an age-adjusted cut-off of 0.60 mg/L FEU and an 80 year old 0.80 mg/L FEU. Albumin/Creatinine Ratio,Uri [id number] Reviewed date:01/30/2024 06:50:01 PM Interpretation: Performing Lab:[facility] [place], [address] [facility], [place], Phone - [phone], Director - Steve Notes/Report: Creatinine, Urine 47.5 Not Estab. mg/dL Albumin, Urine <3.0 Not Estab. ug/mL Alb/Creat Ratio <6 0-29 mg/g creat Normal: 0 - 29 Moderately increased: 30 - 300 Severely increased: >300 Comp. Metabolic Panel (14)-3 [id number] Reviewed date:01/30/2024 06:50:01 PM Interpretation: Performing Lab:[facility] [place], [address] [place] [address], Phone - [phone], Director - [facility] Notes/Report: Glucose 80 70-99 mg/dL BUN 23 8-27 mg/dL Creatinine 0.91 0.57-1.00 mg/dL eGFR 70 >59 mL/min/1.73 BUN/Creatinine Ratio 25 12-28 Sodium 138 134-144 mmol/L Potassium 4.6 3.5-5.2 mmol/L Chloride 97 96-106 mmol/L Carbon Dioxide, Total 24 20-29 mmol/L Calcium 10.0 8.7-10.3 mg/dL Protein, Total 6.9 6.0-8.5 g/dL Albumin 4.4 3.9-4.9 g/dL Globulin, Total 2.5 1.5-4.5 g/dL Bilirubin, Total 0.6 0.0-1.2 mg/dL Alkaline Phosphatase 97 44-121 IU/L AST (SGOT) 17 0-40 IU/L ALT (SGPT) 18 0-32 IU/L PDF Report Reviewed date:01/30/2024 06:50:01 PM Interpretation: Performing Lab:[facility] [place], [address] [place] [address], Phone - [phone], Director - Roseanna Notes/Report: [id number] Reviewed date:04/10/2024 06:14:28 PM Interpretation: Performing Lab:[facility], [address] [place] [address], Phone - [phone], Director - Steve Notes/Report: D-Dimer 0.42 0.00-0.49 mg/L FEU According to the assay millwright's published package insert, a normal (<0.50 mg/L FEU) D-dimer result in conjunction with a non-high clinical probability assessment, excludes deep vein thrombosis (DVT) and pulmonary embolism (PE) with high sensitivity. . D-dimer values increase with age and this can make VTE exclusion of an older population difficult. To address this, the [place] [employer], based on best available evidence and recent guidelines, recommends that clinicians use age-adjusted D-dimer thresholds in patients greater than 50 years of age with: a) a low probability of PE who do not meet all Pulmonary Embolism Rule Out Criteria, or b) in those with intermediate probability of PE. The formula for an age-adjusted D-dimer cut-off is age/100 . For example, a 60 year old patient would have an age-adjusted cut-off of 0.60 mg/L FEU and an 80 year old 0.80 mg/L FEU. C.DIFFICILE TOXIN Reviewed date:06/26/2023 10:21:05 PM Interpretation: Performing Lab:Testing performed or reported by [facility], a Service of [facility], [facility] [address] Christian Pierce MD, [employer] CLIA# [id number] Notes/Report: C. DIFFICILE TOXIN Negative. C.Difficil e bacterial antigen and toxin not detected. A (NGCDF7) negative test result does not rule out the possibility of C.Difficile associated disease. If clinical suspicion is high, consider resubmission after 7 days. GIARDIA LAMBLIA, DIRECT DETE CTION EIA Reviewed date:06/26/2023 10:21:05 PM Interpretation: Performing Lab:Testing performed or reported by [facility], a Service of [facility], [address] [place] [address] Christian Pierce MD, [employer] CLIA# [id number] Notes/Report: GIARDIA LAMBLIA AG, EIA NEGATIVE Reference range: NEGATIVE Test performed by [facility] [place] [address] ROUTINE CULTURE, STOOL Reviewed date:06/29/2023 05:44:13 AM Interpretation: Performing Lab:Testing performed or reported by [facility], a Service of [facility], [place] [address] Christian Pierce MD, [employer] [facility]# [id number] Notes/Report: STOOL CULTURE SOURCE STOOL SALMONELLA/SHIGELLA SCREEN Final report CAMPYLOBACTER CULTURE Final report E COLI SHIGA TOXIN EIA NEGATIVE Reference range: NEGATIVE Test performed by [facility] [place] [address] SALMONELLA/SHIGELLA RESULTS Reviewed date:06/29/2023 05:44:13 AM Interpretation: Performing Lab:Testing performed or reported by [facility], a Service of [facility], [address] [place] [address] Christian Pierce MD, [employer] CLIA# [id number] Notes/Report: SCREEN RESULT 1 Comment (NOTE) No Salmonella or Shigella recovered. Test performed by [facility], [address] [place] [address] CAMPYLOBACTER RESULTS Reviewed date:06/29/2023 05:44:13 AM Interpretation: Performing Lab:Testing performed or reported by [facility], a Service of [facility], [address] [place] [address] Christian Pierce MD, [employer] [facility]# [id number] Notes/Report: CULTURE RESULT 1 Comment (NOTE) No Campylobacter species isolated. Test performed by [facility] [address] [place] [address] Respiratory Profile, PCR Reviewed date:07/17/2023 02:29:02 PM Interpretation: Performing Lab:Testing performed or reported by [facility], a Service of [facility], [address] [place] [address] Christian Pierce MD, [employer] [facility]# [id number] Notes/Report: Adenovirus Not Detected Reference range : Not Detected Coronavirus HKU1 (not COVID-19 Not Detected Reference range: Not Detected Coronavirus NL63 (not COVID-19 Not Detected Reference range: Not Detected Coronavirus 229E (not COVID-19 Not Detected Reference range: Not Detected Coronavirus OC43 (not COVID-19 Not Detected Reference range: Not Detected Human Metapneumovirus Not Detected Refere nce range: Not Detected Human Rhinovirus/Enterovirus Not Detected Reference range: Not Detected Influenza A Not Detected Reference range : Not Detected Influenza A/H1 TEST NOT PERFORMED (NOTE) Test not performed Influenza A/H1-2009 TEST NOT PERFORMED (NOTE) Test not performed Influenza A/H3 TEST NOT PERFORMED (NOTE) Test not performed Influenza B Not Detected Reference range : Not Detected Parainfluenza 1 Not Detected Reference ra nge: Not Detected Parainfluenza 2 Not Detected Reference ra nge: Not Detected Parainfluenza 3 Not Detected Reference ra nge: Not Detected Parainfluenza 4 Not Detected Reference ra nge: Not Detected Respiratory Syncytial Virus Not Detected Reference range: Not Detected Bordetella pertussis Not Detected Referen ce range: Not Detected Chlamydophila pneumoniae Not Detected Reference range: Not Detected Mycoplasma pneumoniae Not Detected Refere nce range: Not Detected Bordetella parapertussis Not Detected Reference range: Not Detected SARS-CoV-2 Not Detected Reference range: Not Detected Test performed by [facility], [address] [facility] [address] Reason For Referral No Information Medications Medication SIG (Take, Route, Frequency, Duration) Notes Start Date End Date Status NexIUM 20 MG 1 capsule Orally Onc e a day for 90 days Active Doxycycline Monohydrate 100 MG Oral for 14 Days Active predniSONE 10 MG 1 tablet Orally Once a day Active Claritin 10 MG 1 tablet Orally Once a day for 90 days 10/11/2024 Active Ramipril 10 MG 1 capsule Orally Onc e a day for 90 days Active Chlorthalidone 25 MG 0.5 Tablet Orally O nce a day for 90 days 01/02/2020 05/04/2025 Active Combivent Respimat 20-100 MCG/ACT 1 puff as needed Inhalation every 6 hrs for 90 days Not-Taking Tylenol Extra Strength 500 MG 1 tablet as needed Orally every 6 hrs Active Ipratropium-Albuterol 0.5-2.5 (3) MG/3ML 3 mL as needed Inhalation every 4 hrs for 90 days Not-Taking Singulair 10 MG 1 tablet in the evening Orally Once a day for 90 days Active Mucinex 600 MG 1 tablet as needed Orally every 12 hrs Not-Taking Vitamin D 125 MCG (5000 UT) 1 capsule Orally Once a day Active EpiPen 2-Leonardo 0.3 MG/0.3ML as directed Injection for 30 days 10/19/2022 Active Trelegy Ellipta 100-62.5-25 MCG/ACT 1 puff Inhalation Once a day for 90 days Active Erythromycin 2 % 1 application Externally Twice a day for 30 days 01/19/2023 Active Tezspire 210 MG/1.91ML as directed Subcutaneous Active ProAir RespiClick 108 (90 Base) MCG/ACT 2 puff as needed every 6 hrs for 90 days Active Budesonide 0.5 MG/2ML 1 mL Inhalation Tw ice a day Active Immunizations Vaccine Route Administration Date Status Comme nts *Aftogyvyv-Zxyf-QW IM Intramuscular 03/17/2022 Administere d *Influenza-Fluzone Unknown 04/04/2024 Administered *PREVNAR 20 IM Intramuscular 04/06/2023 Administered *Tdap Unknown 09/08/2016 Administered Date estimated Done at [facility] FHNQL-18-Jouhgk Vaccine Unknown 08/12/2020 Administered ASTNS-30-Gxgaib Vaccine Unknown 09/03/2020 Administered Influenza Unknown 04/05/2016 Administered Influenza Unknown 03/09/2019 Administered Influenza Unknown 03/20/2020 Administered Influenza vaccine Flucelvax quadrivalent Unknown 03/18/2023 Administered Influenza Vaccine, Seasonal, Quadrivalent, Recombinant, Preservative Free Unknown 04/09/2021 Administered Influenza Vaccine, Seasonal, Quadrivalent, Recombinant, Preservative Free Unknown 04/09/2021 Administered Influenza, seasonal, injectable (split), for 3 yrs and up IM Intramuscular 03/06/2018 Administered Influenza-Afluria (IIV4) Unknown 03/24/2017 Administered MMR Unknown 06/05/2019 Administered Pneumococcal polysaccharide PPV23 Unknown 10/04/2010 Administered Td (adult) preservative free Unknown 06/06/1994 Administered Td (adult) preservative free Unknown 10/27/2006 Administered Social History Tobacco Use: Social History Observation Description Date Details (start date - stop date) Never Smoker NA - NA Alcohol Screen (Audit-C) Question Answer Notes Did you have a drink containing alcohol in the p ast year? No Points 0 Interpretation Negative Tobacco Control (Standard) Question Answer Notes Tobacco use: Nonsmoker Problems Problem Type SNOMED Code ICD Code Onset Dates Problem Status W/U Status Risk Notes Problem Thrombophilia (473523213) Other thrombophilia (D68.69) Active confirmed Problem Eosinophilia (906024018) Eosinophilia (D72.1) Active confirmed Problem Vitamin D deficiency (72559277) Vitamin D deficiency, unspecified (E55.9) Active confirmed Problem Lactose intolerance (313943359) Lactose intolerance, unspecified (E73.9) Active confirmed Problem Mixed hyperlipidemia (689938269) Mixed hyperlipidemia (E78.2) Active confirmed Problem Posttraumatic stress disorder (07485452) Post-traumatic stress disorder, chronic (F43.12) Active confirmed Problem Obstructive sleep apnea syndrome (12149729) Obstructive sleep apnea (adult) (pediatric) (G47.33) Active confirmed Problem Brachial plexus disorder (4297430) Brachial plexus disorders (G54.0) Active confirmed Problem Carpal tunnel syndrome (33545638) Carpal tunnel syndrome, right upper limb (G56.01) Active confirmed Problem Chronic kidney disease due to hypertension (687910338599251) Hypertensive chronic kidney disease with stage 1 through stage 4 chronic kidney disease, or unspecified chronic kidney disease (I12.9) Active confirmed Problem Uncomplicated moderate persistent asthma (375120671) Moderate persistent asthma, uncomplicated (J45.40) Active confirmed Problem Uncomplicated severe persistent asthma (160078782) Severe persistent asthma, uncomplicated (J45.50) Active confirmed Problem Gastro-esophageal reflux disease without esophagitis (453524552) Gastro-esophageal reflux disease without esophagitis (K21.9) Active confirmed Problem Lumbosacral spondylosis without myelopathy (44244553) Other spondylosis with radiculopathy, lumbar region (M47.26) Active confirmed Problem Displacement of lumbar intervertebral disc without myelopathy (11514481) Other intervertebral disc displacement, lumbar region (M51.26) Active confirmed Problem Chronic kidney disease stage 2 (061910392) Chronic kidney disease, stage 2 (mild) (N18.2) Active confirmed Problem History of pulmonary embolus (236950471) Personal history of pulmonary embolism (Z86.711) Active confirmed Problem Allergy to penicillin (69812536) Allergy status to penicillin (Z88.0) Active confirmed Problem History of polyp of colon (situation) (611659341) Personal history of colonic polyps (Z86.010) Active confirmed Problem Spinal stenosis of lumbar region (87828017) Spinal stenosis, lumbar region without neurogenic claudication (M48.061) Active confirmed Problem Gastroesophageal reflux disease with esophagitis (disorder) (574829594) Gastro-esophageal reflux disease with esophagitis, without bleeding (K21.00) Active confirmed Problem Body mass index 30.00 to 34.99 (030475190248909) Body mass index [BMI] 31.0-31.9, adult (Z68.31) Active confirmed Problem Moderate persistent asthma with (acute) exacerbation (J45.41) Inactive confirmed Problem Palpitations (48423219) Palpitations (R00.2) Inactive confirmed Problem Oropharyngeal dysphagia (08524166) Dysphagia, pharyngeal phase (R13.13) Inactive confirmed Problem Candidiasis of mouth (98159497) Candidal stomatitis (B37.0) Problem resolved confirmed Problem Benign paroxysmal positional vertigo (232889525) Benign paroxysmal vertigo, left ear (H81.12) Problem resolved confirmed Problem Aural vertigo, left ear (H81.312) Problem resolved confirmed Problem influenza due to influenza a virus with upper respiratory signs (disorder) (919158377574203) Influenza due to identified novel influenza A virus with other respiratory manifestations (J09.X2) Problem resolved confirmed Problem Acute severe exacerbation of severe persistent asthma (971761228) Severe persistent asthma with (acute) exacerbation (J45.51) Problem resolved confirmed Problem Skin ulcer of calf (289457469) 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) Problem resolved confirmed Problem Derangement of posterior horn of medial meniscus (2690934) Derangement of posterior horn of medial meniscus due to old tear or injury, left knee (M23.222) Problem resolved confirmed Problem Nontraumatic rotator cuff tear (disorder) (610376565) Incomplete rotator cuff tear or rupture of right shoulder, not specified as traumatic (M75.111) Problem resolved confirmed Problem Full thickness rotator cuff tear (237341428) Complete rotator cuff tear or rupture of right shoulder, not specified as traumatic (M75.121) Problem resolved confirmed Problem Concussion with no loss of consciousness (23740351) Concussion without loss of consciousness, initial encounter (S06.0X0A) Problem resolved confirmed Problem Strain of muscle of right shoulder (19135716780840236) Strain of muscle(s) and tendon(s) of the rotator cuff of right shoulder, initial encounter (S46.011A) Problem resolved confirmed Problem Single subsegmental pulmonary embolism without acute cor pulmonale (I26.93) Problem resolved confirmed Problem COVID19 VENANCIO-Viru s Identified (U07.1) Problem resolved confirmed Vital Signs Heart Rate 89 /min 05/02/2024 Temperature 95.3 degrees Fahrenheit 05/09/2024 Blood pressure diastolic 64 mm Hg 04/17/2024 Oximetry 99 % 05/02/2024 Height 65 in 05/09/2024 Blood pressure systolic 122 mm Hg 04/17/2024 Weight 185 lbs 04/25/2024 BMI 30.78 kg/m2 04/25/2024 Encounters Encounter Location Date Provider Diagnosis Liana Richey MD [address] [id number] 07/08/2023 Liana Richey Hypertensive chronic kidney disease with stage 1 through stage 4 chronic kidney disease, or unspecified chronic kidney disease I12.9 ; Severe persistent asthma, uncomplicated J45.50 ; Chronic kidney disease, stage 2 (mild) N18.2 ; Post-traumatic stress disorder, chronic F43.12 ; Obstructive sleep apnea (adult) (pediatric) G47.33 ; Mixed hyperlipidemia E78.2 ; Gastro-esophageal reflux disease without esophagitis K21.9 ; Spinal stenosis, lumbar region without neurogenic claudication M48.061 ; Vitamin D deficiency, unspecified E55.9 and Personal history of pulmonary embolism Z86.711 Liana Richey MD [address] [id number] 07/13/2023 Liana Richey Acute upper respirat ory infection, unspecified J06.9 and Acute obstructive laryngitis [croup] J05.0 Liana Richey MD [address] [id number] 07/27/2023 Rachelamber Sanchez Acute upper respirat ory infection, unspecified J06.9 and Acute obstructive laryngitis [croup] J05.0 Liana Richey MD [address] [id number] 08/03/2023 Liana Richey Influenza due to identified novel influenza A virus with other respiratory manifestations J09.X2 ; Severe persistent asthma with (acute) exacerbation J45.51 ; Hypertensive chronic kidney disease with stage 1 through stage 4 chronic kidney disease, or unspecified chronic kidney disease I12.9 ; Chronic kidney disease, stage 2 (mild) N18.2 and Personal history of pulmonary embolism Z86.711 Liana Richey MD [address] [id number] 08/09/2023 Liana Richey Severe persistent asthma with (acute) exacerbation J45.51 and Hypertensive chronic kidney disease with stage 1 through stage 4 chronic kidney disease, or unspecified chronic kidney disease I12.9 Liana TAPIA [address] [place] [address] [id number] 08/22/2023 Liana Richey Severe persistent asthma with (acute) exacerbation J45.51 and Gastro-esophageal reflux disease without esophagitis K21.9 Liana Richey MD [address] [id number] 09/07/2023 Liana Richey Severe persistent asthma with (acute) exacerbation J45.51 ; Gastro-esophageal reflux disease without esophagitis K21.9 ; Hypertensive chronic kidney disease with stage 1 through stage 4 chronic kidney disease, or unspecified chronic kidney disease I12.9 ; Chronic kidney disease, stage 2 (mild) N18.2 and Personal history of pulmonary embolism Z86.711 Arminder Richey MD [address] [id number] 10/17/2023 Liana Richey Hypertensive chronic kidney disease with stage 1 through stage 4 chronic kidney disease, or unspecified chronic kidney disease I12.9 ; Severe persistent asthma, uncomplicated J45.50 ; Chronic kidney disease, stage 2 (mild) N18.2 ; Post-traumatic stress disorder, chronic F43.12 ; Obstructive sleep apnea (adult) (pediatric) G47.33 ; Mixed hyperlipidemia E78.2 ; Gastro-esophageal reflux disease without esophagitis K21.9 ; Spinal stenosis, lumbar region without neurogenic claudication M48.061 ; Vitamin D deficiency, unspecified E55.9 and Personal history of pulmonary embolism Z86.711 Liana Richey MD [address] [id number] 11/30/2023 Rachel Sanchez Severe persistent asthma, uncomplicated J45.50 ; Acute upper respiratory infection, unspecified J06.9 ; Hypertensive chronic kidney disease with stage 1 through stage 4 chronic kidney disease, or unspecified chronic kidney disease I12.9 and Chronic kidney disease, stage 2 (mild) N18.2 Liana Richey MD [address] [id number] 12/05/2023 Rachel Sanchez Severe persistent asthma, uncomplicated J45.50 ; COVID-19 U07.1 ; Hypertensive chronic kidney disease with stage 1 through stage 4 chronic kidney disease, or unspecified chronic kidney disease I12.9 and Chronic kidney disease, stage 2 (mild) N18.2 Liana Richey MD [address] [id number] 01/19/2024 Liana Richey Hypertensive chronic kidney disease with stage 1 through stage 4 chronic kidney disease, or unspecified chronic kidney disease I12.9 ; Severe persistent asthma, uncomplicated J45.50 ; Chronic kidney disease, stage 2 (mild) N18.2 ; Post-traumatic stress disorder, chronic F43.12 ; Obstructive sleep apnea (adult) (pediatric) G47.33 ; Mixed hyperlipidemia E78.2 ; Gastro-esophageal reflux disease without esophagitis K21.9 ; Spinal stenosis, lumbar region without neurogenic claudication M48.061 ; Personal history of pulmonary embolism Z86.711 and Vitamin D deficiency, unspecified E55.9 Liana Richey MD [address] [id number] 04/09/2024 Liana Richey Personal history of pulmonary embolism Z86.711 and Moderate persistent asthma with (acute) exacerbation J45.41 Liana Richey MD [address] [id number] 04/17/2024 Liana Richey Hypertensive chronic kidney disease with stage 1 through stage 4 chronic kidney disease, or unspecified chronic kidney disease I12.9 ; Encounter for general adult medical examination without abnormal findings Z00.00 ; Chronic kidney disease, stage 2 (mild) N18.2 ; Post-traumatic stress disorder, chronic F43.12 ; Obstructive sleep apnea (adult) (pediatric) G47.33 ; Mixed hyperlipidemia E78.2 ; Gastro-esophageal reflux disease without esophagitis K21.9 ; Spinal stenosis, lumbar region without neurogenic claudication M48.061 ; Personal history of pulmonary embolism Z86.711 ; Vitamin D deficiency, unspecified E55.9 ; Encounter for screening for malignant neoplasm of colon Z12.11 ; Encounter for screening mammogram for malignant neoplasm of breast Z12.31 ; Encounter for screening for osteoporosis Z13.820 ; Encounter for screening for cardiovascular disorders Z13.6 ; Encounter for immunization Z23 ; Encounter for antibody response examination Z01.84 ; Encounter for screening for other viral diseases Z11.59 ; Zoster without complications B02.9 and Moderate persistent asthma with (acute) exacerbation J45.41 Liana Richey MD [address] [id number] 04/25/2024 Liana Richey Moderate persistent asthma with (acute) exacerbation J45.41 Liana Richey MD [address] [id number] 05/02/2024 Liana Richey Moderate persistent asthma with (acute) exacerbation J45.41 Liana Richey MD [address] [id number] 05/09/2024 Liana Richey Moderate persistent asthma with (acute) exacerbation J45.41 Liana Richey MD [address] [id number] 05/11/2024 Liana Richey MD [address] [id number] 06/21/2023 Liana Richey Diarrhea, unspecifie d R19.7 Liana Richey MD [address] [id number] 07/28/2023 Liana Richey MD [facility] [address] [place], [place] [id number] 07/30/2023 Liana Richey Influenza due to identified novel influenza A virus with other respiratory manifestations J09.X2 Liana Richey MD [facility] [address] [place], [place] [id number] 11/29/2023 Liana Richey MD [facility] [address] [facility] [place], [place] [id number] 12/02/2023 Liana Richey MD PC [address] [place], [place] [id number] 01/17/2024 Liana Richey MD [facility] [address] [facility] [address] [place], [place] [id number] 04/06/2024 Liana Richey MD [facility] [address] [facility] [address] [place], [place] [id number] 04/25/2024 Liana Richey MD [facility] [address] [facility] [address] [facility] [place], [place] [id number] 06/24/2023 Liana Richey MD [facility] [address] [facility] [place], [place] [id number] 06/24/2023 Liana Richey MD [facility] [address] [facility] [address] [place], [place] [id number] 07/13/2023 Liana Richey MD [facility] [address] [facility] [place], [place] [id number] 07/13/2023 Liana Richey MD [facility] [address] [facility] [place], [place] [id number] 07/14/2023 Liana Richey MD [facility] [address] [facility] [place], [place] [id number] 07/14/2023 Liana Richey MD PC [address] [place], [place] [id number] 2023 Liana Richey Shortness of breath R06.02 Liana Richey MD [facility] [address] [facility] [place], [place] [id number] 08/01/2023 Liana Richey MD [facility] [address] [facility] [address] [place], [place] [id number] 08/12/2023 Liana Richey MD [facility] [address] [facility] [address] [address] [place], [place] [id number] 08/15/2023 Liana Richey MD PC [address] [facility] [address] [place], [place] [id number] 08/22/2023 Liana Richey MD [address] [facility] [address] [place] [address], [place] [id number] 08/23/2023 Liana Richey MD [address] [facility] [address] [place] [address], [place] [id number] 09/05/2023 Liana Richey MD [address] [facility] [address] [place] [address], [place] [id number] 09/30/2023 Liana Richey MD [address] [place] [address], [place] [id number] 09/30/2023 Liana Richey MD [address] [place] [address], [place] [id number] 09/30/2023 Liana Richey MD [address] [facility] [address] [place] [address], [place] [id number] 10/03/2023 Liana Richey MD [address] [place] [address], [place] [id number] 11/29/2023 Liana Richey MD [address] [place] [id number] 02/23/2024 Liana Richey MD [address], [place] [id number] 02/23/2024 Liana Richey Assessments Encounter Date Diagnosis (ICD Code) Assessment Notes Treatment Notes Treatment Clinical Notes Section Notes 06/21/2023 Diarrhea, unspecified (ICD-10 - R19.7) 07/08/2023 Hypertensive chronic kidney disease with stage 1 through stage 4 chronic kidney disease, or unspecified chronic kidney disease (ICD-10 - I12.9) Stable at present. Continue current therapy 07/08/2023 Severe persistent asthma, uncomplicated (ICD-10 - J45.50) Stable at present with current medical therapy. Continue same. She may have had a side effect of infusion with her last treatment but she will be monitored for the next treatment. 07/13/2023 Acute obstructive laryngitis [croup] (ICD-10 - J05.0) She has some obstructive phenomenon. She was unable to breathe effectively this morning. At this point recommend short burst of prednisone and cool mist to help minimize vocal cord edema. 07/13/2023 Acute upper respiratory infection, unspecified (ICD-10 - J06.9) She has an acute upper respiratory tract infection. She acquired this from other family members. At the present time her lungs are clear and there is no sign of decompensation over asthma. However she has laryngitis. She has checked for COVID and this is negative. Can check viral PCR to evaluate for other etiologies that might be treatable such as influenza 2023 Shortness of breath (ICD-10 - R06.02) 07/27/2023 Acute upper respiratory infection, unspecified (ICD-10 - J06.9) Discussed with patient her return of symptoms of an acute respiratory infection. Chest x-ray was obtained and negative. Will obtain an updated respiratory PCR panel to see if there are new findings to explain her underlying symptoms. Will also begin azithromycin given her presentation of laryngitis and suspected bronchitis. 07/30/2023 Influenza due to identified novel influenza A virus with other respiratory manifestations (ICD-10 - J09.X2) 08/03/2023 Influenza due to identified novel influenza A virus with other respiratory manifestations (ICD-10 - J09.X2) She was found to have influenza A. The origin of this is unclear. At this point she is completing her therapy of Tamiflu. She has complications of asthma exacerbation that are still persisting. 08/03/2023 Severe persistent asthma with (acute) exacerbation (ICD-10 - J45.51) Her peak flows are usually 300 and currently they are 220. This is still a significant asthma exacerbation that is limiting her functional status and recommend continuing prednisone until peak flows improved and abstain from work. 08/09/2023 Hypertensive chronic kidney disease with stage 1 through stage 4 chronic kidney disease, or unspecified chronic kidney disease (ICD-10 - I12.9) stable without any exacerbation as a complication of medical therapy for asthma 08/09/2023 Severe persistent asthma with (acute) exacerbation (ICD-10 - J45.51) Her peak flows have finally improved to about 250. At this point she can start tapering prednisone by 10 mg every 4 days till off and continue her other chronic medications. Unfortunately her stamina has not recovered and she may not be able to return to work without any restrictions. Therefore recommend abstain from work until her peak flows have stabilized with decreasing doses of prednisone 08/22/2023 Severe persistent asthma with (acute) exacerbation (ICD-10 - J45.51) Peak flows are remaining in the 250s to 270s only at home. She has not had to use any updraft in the last 4 days. She can discontinue prednisone and reevaluate her status in 2 weeks. She should be able to return to work in about 1 weeks if she remains stable off prednisone. Given her recent flare and propensities for flare she should limit her work to 8 hours/week for right now 08/22/2023 Gastro-esophageal reflux disease without esophagitis (ICD-10 - K21.9) She still has a scratchy throat feeling. Her throat is clear. This may be reflux that is exacerbated by her prednisone use. Can try to change medical therapy to see if he can get better control of her reflux which may also influence of control of her asthma 09/07/2023 Severe persistent asthma with (acute) exacerbation (ICD-10 - J45.51) Her peak flows are slowly improving. They are up into the 280s now. She is working a limited schedule and still has some fatigue from this. Can continue the limited schedule until she feels that she is able to return to work without restrictions based on her lung disease. 10/17/2023 Hypertensive chronic kidney disease with stage 1 through stage 4 chronic kidney disease, or unspecified chronic kidney disease (ICD-10 - I12.9) Stable with current medical therapy. Continue same 10/17/2023 Severe persistent asthma, uncomplicated (ICD-10 - J45.50) Stable at present. 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 Will obtain a respiratory swab to assess further. Patient to isolate at this time, remain on current medication regimen, and she will be notified of results once they are available 11/30/2023 Severe persistent asthma, uncomplicated (ICD-10 - J45.50) Suspect patient has an underlying viral illness as her lungs are clear and she is without any worsening asthma symptoms. Patient to remain on the recently prescribed burst of prednisone as well as her regularly prescribed asthma medications with follow up on Tuesday to reassess and determine if pt can return back to work. 12/05/2023 Severe persistent asthma, uncomplicated (ICD-10 - J45.50) Patient's recent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
--- OUTSIDE RECORDS SUMMARY | 2024-05-17 09:30 | XMS_ITS | Continuity of Care Document ---
Author Name [facility] Organization [facility] Care Team Providers Care Right Of Way Man Name Role Phone [facility] Unavailable Unavailable Medications Combined list of outpatient medications from Department of Defense and Veterans Affairs facilities.Medications provided include 1) outpatient medications from the last 15 months, and 2) patient-reported medications. Medication Details Route Status Patient Instructions Prescription Expires Prescription Number Last Dispense Date Ordering Provider Order Date Order Qty Source Albuterol 0.83mg/mL + Ipratropium [place] 0.17mg/mL, (DuoNeb), Solution, Inhalation Take or use exactly as directed .Obtain advice for OTCs.For inhalati on. 10/19/2023 [id number] 3 [address] [place] [address] albuterol 2.5mg/3mL (0.083%) inhalation soln (3mL) See dose instruct ions in comments , # 540 mL, 6 total refill(s ), Acute Complet ed 12/29/2022 540.0 [facility] Pharmac y albuterol 90 mcg inhaler [8.5g] = 2 puff(s), Inhale, every 6 hr, # 17 g, 5 total refill(s ), Hard Stop Inhala tion (breat he in) Complet ed 10/19/2023 17.0 Ambulat ory Pharmac y albuterol-i pratropium 2.5-0.5 mg/3 mL inhale soln [3mL] = 3 mL, every 4 hr, # 540 mL, 3 total refill(s ), Hard Stop Complet ed 10/19/2023 540.0 Ambulat ory Pharmac y APIXABAN 5 MG ORAL TAB Take or use exactly as directed .Obtain advice for OTCs.Brynn ck with your doctor before becoming . 04/13/2024 [id number] 3 [address] [place] [address] AZITHROMYCI N (azithromyc in), 250 MG, TABLET, ORAL, LUPIN PHARMACEU, 6 ea. BLIST PACK Active [id number] 4 2023 6 Pharmac y [facility] y chlorthalid one 25 mg tablet See Instruct ions, # 45 EA, 3 total refill(s ), Hard Stop Ordered 05/09/2025 45.0 Ambul at ory Pharmac y chlorthalid one 25 mg tablet 12.5 mg, # 45 EA, 3 total refill(s ), Hard Stop Complet ed 10/19/2023 45.0 Ambulat ory Pharmac y Combivent Respimat 100-20 mcg inhaler [4g] See Instruct ions, # 12 g, 3 total refill(s ), Hard Stop Complet ed 10/19/2023 12.0 Ambulat ory Pharmac y Combivent Respimat 100-20 mcg inhaler [4g] See Instruct ions, # 12 g, 1 total refill(s ), Hard Stop Ordered 02/22/2025 12.0 Ambul at ory Pharmac y DOXYCYCLINE MONOHYDRATE (DOXYCYCLIN E MONOHYDRATE ), 100 MG, TABLET, ORAL, [place] PHARMA, 50 ea. BOTTLE Active [id number] 4 2023 28 Pharmac y [facility] y DOXYCYCLINE MONOHYDRATE (DOXYCYCLIN E MONOHYDRATE ), 100 MG, TABLET, ORAL, [place] PHARMA, 50 ea. BOTTLE Active [id number] 4 2023 28 Pharmac y [facility] t[facility] y Eliquis 5 mg tablet See dose instruct ions in comments , # 180 EA, 1 total refill(s ), Acute Complet ed 12/08/2022 180.0 Ambulat ory Pharmac y EPINEPHrine (eqv-epi-pe n) 0.3mg autoinjecto r kit [2EA] See Instruct ions, # 2 EA, 3 total refill(s ), Hard Stop Ordered 02/22/2025 2.0 Ambul at ory Pharmac y EPINEPHrine (eqv-epi-pe n) 0.3mg autoinjecto r kit [2EA] See Instruct ions, # 2 EA, 5 total refill(s ), Hard Stop Complet ed 10/19/2023 2.0 Ambulat ory Pharmac y esomeprazol e DR 20 mg capsule 20 mg, Oral, Daily, # 90 EA, 3 total refill(s ), Hard Stop Oral (given by mouth) Ordered 10/16/2024 90.0 Ambul at ory Pharmac y esomeprazol e DR 20 mg capsule See dose instruct ions in comments , # 90 EA, 2 total refill(s ), Acute Complet ed 12/08/2022 90.0 Ambulat ory Pharmac y Esomeprazol e Mag (Nexium Eq.) Capsule Conventiona l 20mg Oral Take on empty stomach. Take or use exactly as directed .Obtain advice for OTCs.Swa llow whole. Active 10/16/2024 [id number] 4 [address] [place] [address] Loratadine (Alavert ODT) Tablet 10 mg Oral May cause drowsine ss.Obtai n advice for OTCs. Active 10/16/2024 [id number] 4 [address] [place] [address] loratadine 10 mg tablet 10 mg, Oral, Daily, # 90 EA, 3 total refill(s ), Hard Stop Oral (given by mouth) Ordered 10/16/2024 90.0 Ambul at ory Pharmac y loratadine 10 mg tablet See dose instruct ions in comments , # 90 EA, 3 total refill(s ), Acute Complet ed 12/08/2022 90.0 Ambulat ory Pharmac y montelukast 10 mg tablet 10 mg, Oral, every evening, # 90 EA, 3 total refill(s ), Hard Stop Oral (given by mouth) Complet ed 10/19/2023 90.0 Ambulat ory Pharmac y OSELTAMIVIR PHOSPHATE (oseltamivi r phosphate), 75 MG, CAPSULE, ORAL, AMNEAL PHARMACE, 10 ea. BLIST PACK Active [id number] 4 2023 10 Pharmac y [facility] y ramipril 10 mg capsule 10 mg, Oral, Daily, # 90 EA, 3 total refill(s ), Hard Stop Oral (given by mouth) Ordered 05/09/2025 90.0 Ambul at ory Pharmac y ramipril 10 mg capsule 10 mg, Oral, Daily, # 90 EA, 3 total refill(s ), Hard Stop Oral (given by mouth) Complet ed 10/19/2023 90.0 Ambulat ory Pharmac y Trelegy Ellipta 100 mcg-62.5 mcg-25 mcg inh [60EA] See Instruct ions, # 180 EA, 3 total refill(s ), Hard Stop Complet ed 10/19/2023 180.0 Ambulat ory Pharmac y Trelegy Ellipta 100 mcg-62.5 mcg-25 mcg inh [60EA] See Instruct ions, # 180 EA, 1 total refill(s ), Hard Stop Ordered 02/22/2025 180.0 Ambul at ory Pharmac y TRELEGY ELLIPTA EQ 100-62.5-25 DSDV [28] Take or use exactly as directed .Obtain advice for OTCs.For inhalati on.Check with your doctor before becoming .Rinse mouth after use. Active 10/16/2024 [id number] [address] [place] [address] Allergies, Adverse Reactions, Alerts Combined list of allergies from Department of Defense and Veterans Affairs facilities. It does not include entries that were removed or entered in error. Substance Category Reaction Severity Reaction type Status Date Reported Comments Source ASPIRIN W/CODEINE (CODEINE PHOS/ASPIRIN) Drug allergy (disorder) Unknown active [address] [place] [address] aspirin-codei ne Propensity to adverse reactions to drug Unknown Active 8 [facility] codeine Propensity to adverse reactions to drug Unknown Active 8 [facility] CODEINE SULFATE (CODEINE SULF) Drug allergy (disorder) Unknown active [address] [place] [address] diazePAM Propensity to adverse reactions to drug Unknown Active 8 [facility] DIAZEPAM (DIAZEPAM) Drug allergy (disorder) Unknown active [address] [place] [address] oxyCODONE Propensity to adverse reactions to drug Unknown Active 8 [facility] penicillin V pota ium Propensity to adverse reactions to drug Unknown Active 8 [facility] PENICILLIN V POTASSIUM (PENICILLIN V POTASSIUM) Drug allergy (disorder) Unknown active [address] [place] [address] ROXICODONE (OXYCODONE HCL) Drug allergy (disorder) Unknown active 8 [facility] KATERINA-DUR (THEOPHYLLINE ANHYDROUS) Drug allergy (disorder) Unknown active 8 [facility] theophylline Propensity to adverse reactions to drug Unknown Active 8 [facility] Vital Signs Combined list of inpatient and outpatient Vital Signs from Department of Defense and Veterans Affairs, ranging from 12 months to all on record, depending upon the facility. Vital Sign Value Date Comments Source No data available for this section Ambulatory Pharmacy Procedures Combined list of: 1) Procedures from [facility], not all [facility] non-surgical procedures are included; 2) All procedures from the Department of [facility] facilities. Procedure Procedure Type Code Date Perfomer Comments Sourc e No data available for this section Ambulatory P harmacy Social History Combined list of available smoking, tobacco, and other social history from Department of Defense and Veterans [facility] facilities. Social History Type Response Date Comment Sourc e This section is an empty social history section. [facility] Assessment and Plan Combined list of future care activities from Department of Defense and Veterans [facility] facilities (e.g., assessment and plan notes, appointments, orders, and referrals). Additional future care activities may be listed in the Plan of Care section. Result Assessment and Plan Date Source Assessment and Plan No data available for this section 05/17/2024 Ambulatory Pharmacy Functional Status Combined list of recent functional and cognitive assessments recorded at [facility] Functional [place] Measurement (FIM) Scale: 1 = Total Assistance (Subject = 0% +), 2 = Maximal Assistance (Subject = 25% +), 3 = Moderate Assistance (Subject = 50% +), 4 = Minimal Assistance (Subject = 75% +), 5 = Supervision, 6 = Modified [place] (Device), 7 = Complete [place] (Timely, Safely). Assessment Date/Time Source Assessment Type Assessment Skill Assessment Score Assessment Details No data available for this section
== END 2024-05-17 09:54 | disposition home or self-care (01) ==
PROVIDERS: PCP Internal Medicine; Visit Provider Hospitalist
DX: J45.50 Severe persistent asthma, uncomplicated (principal); J01.90 Acute sinusitis, unspecified; I26.99 Other pulmonary embolism without acute cor pulmonale; R06.02 Shortness of breath; R91.8 Other nonspecific abnormal finding of lung field; J38.3 Other diseases of vocal cords; G47.33 Obstructive sleep apnea (adult) (pediatric); Z99.89 Dependence on other enabling machines and devices
CPT/HCPCS: 99214

== ENCOUNTER → 2024-05-17 09:20 | Outpatient (BNVA) | payer MEDICARE, OTHER, SELFPAY | PROVIDERS: PCP Internal Medicine; Visit Provider Hospitalist | DX: J45.50 Severe persistent asthma, uncomplicated (principal); J01.90 Acute sinusitis, unspecified; I26.99 Other pulmonary embolism without acute cor pulmonale | CPT/HCPCS: 99212 ==

== ENCOUNTER → 2024-06-29 10:21 | Outpatient (BNVA) | payer MEDICARE, OTHER, SELFPAY | PROVIDERS: PCP Internal Medicine; Visit Provider Hospitalist | DX: J45.50 Severe persistent asthma, uncomplicated (principal); I26.99 Other pulmonary embolism without acute cor pulmonale; J01.90 Acute sinusitis, unspecified; J38.3 Other diseases of vocal cords; G47.33 Obstructive sleep apnea (adult) (pediatric); R06.02 Shortness of breath; R91.8 Other nonspecific abnormal finding of lung field; Z99.89 Dependence on other enabling machines and devices | CPT/HCPCS: 99212 ==

== ENCOUNTER 2024-09-25 14:12 | Outpatient (AMB) | payer MEDICARE, OTHER, SELFPAY ==
[2024-09-25 14:17] VITALS: BP 110/54; PULSE 84; O2SAT 96; BMI 26.2
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
--- OUTSIDE RECORDS SUMMARY | 2024-09-25 17:03 | XMS_ITS | Continuity of Care Document ---
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 Medication Details Route Status Patient Instructions Prescription Expires Prescription Number Last Dispense Date Ordering Provider Order Date Order Qty Source albuterol 2.5mg/3mL (0.083%) inhalation soln (3mL) See dose instruct ions in comments , # 540 mL, 6 total refill(s ), Acute Complet ed 12/29/2022 3 2022 540.0 Ambulat ory Pharmac y albuterol 90 mcg inhaler [8.5g] = 2 puff(s), Inhale, every 6 hr, # 17 g, 5 total refill(s ), Hard Stop Inhala tion (breat he in) Complet ed 10/19/2023 3 2023 17.0 Ambulat ory Pharmac y albuterol-i pratropium 2.5-0.5 mg/3 mL inhale soln [3mL] = 3 mL, every 4 hr, # 540 mL, 3 total refill(s ), Hard Stop Complet ed 10/19/2023 4 2023 540.0 Ambulat ory Pharmac y AZITHROMYCI N (azithromyc in), 250 MG, TABLET, ORAL, [employer]UP[employer]ARMACEU, 6 ea. BLIST PACK Active [id number] 4 2023 6 Pharmac y Data Transac tion Service Facilit y chlorthalid one 25 mg tablet See Instruct ions, # 45 EA, 3 total refill(s ), Hard Stop Ordered 05/09/2025 4 2023 45.0 Ambulat ory Pharmac y chlorthalid one 25 mg tablet 12.5 mg, # 45 EA, 3 total refill(s ), Hard Stop Complet ed 10/19/2023 4 2023 45.0 Ambulat ory Pharmac y chlorthalid one 25 mg tablet See Instruct ions, # 45 EA, 0 total refill(s ), Hard Stop Complet ed 05/24/2024 4 2023 45.0 Ambulat ory Pharmac y chlorthalid one 25 mg tablet See dose instruct ions in comments , # 45 EA, 2 total refill(s ), Acute Complet ed 12/08/2022 3 2022 45.0 Ambulat ory Pharmac y Combivent Respimat 100-20 mcg inhaler [4g] See Instruct ions, # 12 g, 3 total refill(s ), Hard Stop Complet ed 10/19/2023 4 2023 12.0 Ambulat ory Pharmac y Combivent Respimat 100-20 mcg inhaler [4g] See Instruct ions, # 12 g, 1 total refill(s ), Hard Stop Ordered 02/22/2025 4 2023 12.0 Ambulat ory Pharmac y DOXYCYCLINE MONOHYDRATE (DOXYCYCLIN E MONOHYDRATE ), 100 MG, TABLET, ORAL, [employer] PHARMA, 50 ea. BOTTLE Active [id number] 4 2023 28 Pharmac y Data Transac tion Service Facilit y DOXYCYCLINE MONOHYDRATE (DOXYCYCLIN E MONOHYDRATE ), 100 MG, TABLET, ORAL, [employer] PHARMA, 50 ea. BOTTLE Active [id number] 4 2023 28 Pharmac y Data Transac tion Service Facilit y Eliquis 5 mg tablet See dose instruct ions in comments , # 180 EA, 1 total refill(s ), Acute Complet ed 12/08/2022 3 2022 180.0 Ambulat ory Pharmac y Eliquis 5 mg tablet 5 mg, Oral, BID, # 180 EA, 3 total refill(s ), Hard Stop Oral (given by mouth) Complet ed 04/13/2024 4 2023 180.0 Ambulat ory Pharmac y EPINEPHrine (eqv-epi-pe n) 0.3mg autoinjecto r kit [2EA] See Instruct ions, # 2 EA, 3 total refill(s ), Hard Stop Ordered 02/22/2025 4 2023 2.0 Ambulat ory Pharmac y EPINEPHrine (eqv-epi-pe n) 0.3mg autoinjecto r kit [2EA] See Instruct ions, # 2 EA, 5 total refill(s ), Hard Stop Complet ed 10/19/2023 4 2023 2.0 Ambulat ory Pharmac y EPINEPHrine (eqv-epi-pe n) 0.3mg autoinjecto r kit [2EA] See dose instruct ions in comments , # 2 EA, 10 total refill(s ), Acute Complet ed 12/29/2022 3 2022 2.0 Ambulat ory Pharmac y esomeprazol e DR 20 mg capsule 20 mg, Oral, Daily, # 90 EA, 3 total refill(s ), Hard Stop Oral (given by mouth) Ordered 10/16/2024 4 2023 90.0 Ambulat ory Pharmac y esomeprazol e DR 20 mg capsule See dose instruct ions in comments , # 90 EA, 2 total refill(s ), Acute Complet ed 12/08/2022 3 2022 90.0 Ambulat ory Pharmac y Esomeprazol e Mag (Nexium Eq.) Capsule Conventiona l 20mg Oral Take on empty stomach. Take or use exactly as directed .Obtain advice for OTCs.Swa llow whole. Active 10/16/2024 [id number] 4 [address] [place] [address] Loratadine (Alavert ODT) Tablet 10 mg Oral May cause drowsine ss.Obtai n advice for OTCs. Active 10/16/2024 [id number] 4 [address] [place] [address] loratadine 10 mg tablet 10 mg, Oral, Daily, # 90 EA, 3 total refill(s ), Hard Stop Oral (given by mouth) Ordered 10/16/2024 4 2023 90.0 Ambulat ory Pharmac y loratadine 10 mg tablet See dose instruct ions in comments , # 90 EA, 3 total refill(s ), Acute Complet ed 12/08/2022 3 2022 90.0 Ambulat ory Pharmac y montelukast 10 mg tablet 10 mg, Oral, every evening, # 90 EA, 3 total refill(s ), Hard Stop Oral (given by mouth) Complet ed 10/19/2023 4 2023 90.0 Ambulat ory Pharmac y OSELTAMIVIR PHOSPHATE (oseltamivi r phosphate), 75 MG, CAPSULE, ORAL, [employer] PHARMACE, 10 ea. BLIST PACK Active [id number] 4 2023 10 Pharmac y Data Transac tion Service Facilit y ramipril 10 mg capsule 10 mg, Oral, Daily, # 90 EA, 3 total refill(s ), Hard Stop Oral (given by mouth) Ordered 05/09/2025 4 2023 90.0 Ambulat ory Pharmac y ramipril 10 mg capsule 10 mg, Oral, Daily, # 90 EA, 3 total refill(s ), Hard Stop Oral (given by mouth) Complet ed 10/19/2023 4 2023 90.0 Ambulat ory Pharmac y ramipril 10 mg capsule 10 mg, Oral, Daily, # 90 EA, 0 total refill(s ), Hard Stop Oral (given by mouth) Complet ed 04/19/2024 4 2023 90.0 Ambulat ory Pharmac y ramipril 10 mg capsule See dose instruct ions in comments , # 90 EA, 1 total refill(s ), Acute Complet ed 12/08/2022 3 2022 90.0 Ambulat ory Pharmac y Trelegy Ellipta 100 mcg-62.5 mcg-25 mcg inh [60EA] See Instruct ions, # 180 EA, 3 total refill(s ), Hard Stop Complet ed 10/19/2023 4 2023 180.0 Ambulat ory Pharmac y Trelegy Ellipta 100 mcg-62.5 mcg-25 mcg inh [60EA] See Instruct ions, # 180 EA, 1 total refill(s ), Hard Stop Ordered 02/22/2025 4 2023 180.0 Ambulat ory Pharmac y Trelegy Ellipta 100 mcg-62.5 mcg-25 mcg inh [60EA] = 1 puff(s), Inhale, Daily, # 180 EA, 3 total refill(s ), Hard Stop Inhala tion (breat he in) Ordered 10/16/2024 4 2023 180.0 Ambulat ory Pharmac y TRELEGY ELLIPTA EQ 100-62.5-25 DSDV [28] Take or use exactly as directed .Obtain advice for OTCs.For inhalati on.Check with your doctor before becoming .Rinse mouth after use. Active 10/16/2024 [id number] 4 [address] [place] [address] Allergies, Adverse Reactions, Alerts Combined list of allergies from Department of Defense and Veterans Affairs facilities. It does not include entries that were removed or entered in error. Substance Category Reaction Severity Reaction type Status Date Reported Comments Source ASPIRIN W/CODEINE (CODEINE PHOS/ASPIRIN) Drug allergy (disorder) Unknown active [address] [place] [address] aspirin-codei ne Propensity to adverse reactions to drug Unknown Active 8 Unknown Organizat ion codeine Propensity to adverse reactions to drug Unknown Active 8 Unknown Organizat ion CODEINE SULFATE (CODEINE SULF) Drug allergy (disorder) Unknown active [address] [place] [address] diazePAM Propensity to adverse reactions to drug Unknown Active 8 Unknown Organizat ion DIAZEPAM (DIAZEPAM) Drug allergy (disorder) Unknown active [address] [place] [address] oxyCODONE Propensity to adverse reactions to drug Unknown Active 8 Unknown Organizat ion penicillin V pota ium Propensity to adverse reactions to drug Unknown Active 8 Unknown Organizat ion PENICILLIN V POTASSIUM (PENICILLIN V POTASSIUM) Drug allergy (disorder) Unknown active [address] [place] [address] Group ROXICODONE (OXYCODONE HCL) Drug allergy (disorder) Unknown active [address] [place] [address] Group KATERINA-DUR (THEOPHYLLINE ANHYDROUS) Drug allergy (disorder) Unknown active [address] [place] [address] Group theophylline Propensity to adverse reactions to drug Unknown Active 8 Unknown Organizat ion Procedures Combined list of: 1) Procedures from Department of Veterans Affairs facilities going back up to [facility] 18 months, not all [place] non-surgical procedures are included; 2) All procedures from the Department of Defense facilities. Procedure Procedure Type Code Date Perfomer Comments Sourc e No data available for this section Ambulatory P harmacy Social History Combined list of available smoking, tobacco, and other social history from Department of Defense and Veterans Affairs facilities. Social History Type Response Date Comment Sourc e This section is an empty social history section. [facility] Assessment and Plan Combined list of future care activities from Department of Defense and Veterans Affairs facilities (e.g., assessment and plan notes, appointments, orders, and referrals). Additional future care activities may be listed in the Plan of Care section. Result Assessment and Plan Date Source Assessment and Plan No data available for this section 09/25/2024 Ambulatory Pharmacy Functional Status Combined list of recent functional and cognitive assessments recorded at [facility] and [facility] [place] Functional [place] Measurement (FIM) Scale: 1 = Total Assistance (Subject = 0% +), 2 = Maximal Assistance (Subject = 25% +), 3 = Moderate Assistance (Subject = 50% +), 4 = Minimal Assistance (Subject = 75% +), 5 = Supervision, 6 = Modified [place] (Device), 7 = Complete [place] (Timely, Safely). Assessment Date/Time Source Assessment Type Assessment Skill Assessment Score Assessment Details No data available for this section
--- OUTSIDE RECORDS SUMMARY | 2024-09-25 17:03 | XMS_ITS | Clinical Summary ---
Author Organization [facility] ity Address [address] [place] [address] Care Team Providers Care Accounting Methods Analyst Name Role Phone Liana Richey MD Primary Care Provider [phone] Surgical History Surgery Date Site/Laterality Comments TONSILLECTOMY PROCEDURE: HISTORICAL TONSILLECTOMY CHOLECYSTECTOMY PROCEDURE: HISTORICAL CHOLECYSTECTOMY APPENDECTOMY PROCEDURE: HISTORICAL APPENDECTOMY Medical History Medical History Date Comments History of skin cancer 04/01/2017 DX:Histor y of skin cancer Asthma 01/25/2017 DX:Asthma Gastroesophageal reflux disease 10/12/2016 DX:Gastroesophageal reflux disease Seasonal allergic rhinitis 10/15/2016 DX:Se asonal allergic rhinitis Social History Tobacco Use Types Packs/Day Years Used Date Smoking Tobacco: Never Smokeless Tobacco: Never Comments Unknown Sex and Gender Information Value Date Recorded Sex Assigned at Not on file Legal Sex Female 1:47 AM EST Gender Identity Not on file Sexual Orientation Not on file Obstetrics History Plan of Treatment Health Maintenance Due Date Last Done Comments Breast Cancer Screening 1955 DTaP,Tdap,and Td Vaccines (1 - Tdap) 1976 Pneumococcal Vaccine: 50+ Ye ars (1 of 2 - PCV) 1976 Zoster Vaccines (1 of 2) 2007 RSV Immunization Adult Patie nts (1 - Risk 60-74 years 1-dose series) 2017 Colorectal Cancer Screening: Colonoscopy 05/09/2022 Depression Screening 05/09/2022 Hepatitis C Screening 05/09/2022 Osteoporosis Screening (Bone Density Screening) 05/09/2022 Social Influencers of Health Screening 05/09/2022 Falls Risk Assessment 2022 COVID-19 Vaccine (1 - 2023-2 5 season) 2024 Influenza Vaccine (Season Ended) 2025 HIB Vaccines Aged Out No longer eligi ble based on patient's age to complete this topic HPV Vaccines Aged Out No longer eligi ble based on patient's age to complete this topic Hepatitis A Vaccines Aged Out No long er eligible based on patient's age to complete this topic Hepatitis B Vaccines Aged Out No long er eligible based on patient's age to complete this topic IPV Vaccines Aged Out No longer eligi ble based on patient's age to complete this topic MMR Vaccines Aged Out No longer eligi ble based on patient's age to complete this topic Meningococcal ACWY Vaccine Aged Out N o longer eligible based on patient's age to complete this topic Meningococcal B Vaccine Aged Out No l onger eligible based on patient's age to complete this topic RSV Immunization Patients Un jovany 20 months Aged Out No longer eligible b ased on patient's age to complete this topic Varicella Vaccines Aged Out No longer eligible based on patient's age to complete this topic Care Teams Accounting Methods Analyst Relationship Specialty Start Date End Date Liana Richey MD PCP - General Internal Medicine 04/05/17
--- OUTSIDE RECORDS SUMMARY | 2024-09-25 17:03 | XMS_ITS ---
Author Organization [facility] Address [address] [id number] Care Team Providers Care Optical Design Engineer Name Role Phone [facility] Primary Care Provider [phone] Rachel Snachez Unavailable [phone] Allergies Allergen (clinical drug ingredient) Drug/Non Drug [...] Unknown Drug Allergy Active REASON FOR VISIT 3 day f/u asthma Medications Medication SIG (Take, Route, Frequency, Duration) Notes Start Date End Date Status predniSONE 20 MG Take 3 tablets daily for 1 week Orally Once a day for 7 days 09/13/2024 Active Mucinex 600 MG 1 tablet as needed Orally every 12 hrs Not-Taking Ipratropium-Albuterol 0.5-2.5 (3) MG/3ML 3 mL as needed Inhalation every 4 hrs for 90 days Not-Taking Ramipril 10 MG 1 capsule Orally Onc e a day for 90 days Active Chlorthalidone 25 MG 0.5 Tablet Orally O nce a day for 90 days 01/02/2020 12/05/2024 Active Budesonide 0.5 MG/2ML 1 mL Inhalation Tw ice a day Active Singulair 10 MG 1 tablet in the evening Orally Once a day for 90 days Active Combivent Respimat 20-100 MCG/ACT 1 puff as needed Inhalation every 6 hrs for 90 days Active Nebulizer System All-In-One - as directed for 90 days 09/06/2024 Active Tezspire 210 MG/1.91ML as directed Subcutaneous Active Tylenol Extra Strength 500 MG 1 tablet as needed Orally every 6 hrs Active NexIUM 20 MG 1 capsule Orally Onc e a day for 90 days Active Claritin 10 MG 1 tablet Orally Once a day for 90 days 10/11/2024 Active EpiPen 2-Leonardo 0.3 MG/0.3ML as directed Injection for 30 days 10/19/2022 Active Trelegy Ellipta 100-62.5-25 MCG/ACT 1 puff Inhalation Once a day for 90 days Active Doxycycline Hyclate 100 MG 1 capsule Orally twice a day for 7 days 09/06/2024 09/13/2024 Active Erythromycin 2 % 1 application Externally Twice a day for 30 days 01/19/2023 Active ProAir RespiClick 108 (90 Base) MCG/ACT 2 puff as needed every 6 hrs for 90 days Active Vitamin D 125 MCG (5000 UT) 1 capsule Orally Once a day Active Social History Tobacco Use: Social History Observation Description Date Details (start date - stop date) Never Smoker NA - NA AUDIT-C (Standard) Question Answer Notes Did you have a drink containing alcohol in the p ast year? No Points 0 Interpretation Negative Tobacco Control (Standard) Question Answer Notes Tobacco use: Nonsmoker Vital Signs Height 65 in 09/06/2024 Temperature 95.6 degrees Fahrenheit 09/07/19 25 Heart Rate 115 /min 09/06/2024 Oximetry 98 % 09/06/2024 Encounters Encounter Location Date Provider Diagnosis [facility] [address] [phone] 09/06/2024 Rachel Sanchez Moderate persistent asthma with (acute) exacerbation J45.41 and Lobar pneumonia, unspecified organism J18.1 Assessments Encounter Date Diagnosis (ICD Code) Assessment Notes Treatment Notes Treatment Clinical Notes Section Notes 09/06/2024 Moderate persistent asthma with (acute) exacerbation (ICD-10 - J45.41) Given patient's history of asthma exacerbation post viral and bacterial respiratory illnesses, would like patient to remain on 60 mg of prednisone. Discussed with patient that I do not want to decrease her prednisone dosing too quickly which would cause worsening asthma exacerbation symptoms. Patient is agreeable and will remain on 60 mg of prednisone, continuing updraft treatments as well as baseline asthma treatments daily. Patient aware that if her oxygenation drops below 90 she is to be seen in an ER setting. Patient to follow-up next week for reassessment of lungs and to determine if we can decrease her prednisone 09/06/2024 Lobar pneumonia, unspecified organism (ICD-10 - J18.1) See plan above.Patient is completing her azithromycin prescription today for underlying right lobular. Patient states 2 days ago she felt as though she needed to be seen in the ER due to her inability to stop coughing and catch her breath. Her oxygen level did remain above 90% but she felt as though she was not doing well. She did not call the office or go to the ER. Due to patient's continued expiratory wheeze, current asthma exacerbation symptoms, and right lobular pneumonia diagnosis, would like to treat with doxycycline for further improvement given her recent underlying diagnoses, symptoms, and to further resolve her pneumonia. Encouraged patient to ambulate as much as she can tolerate to help exercise her lungs given her underlying pneumonia diagnoses. Patient also continue on prednisone as well as underlying asthma medications to help with current asthma exacerbation symptoms Plan Of Treatment Medication Medication Name Sig Start Date Stop Date Notes predniSONE 20 MG Take 3 tablets daily for 1 week Orally Once a day for 7 days 09/13/2024 Ramipril 10 MG 1 capsule Orally Onc e a day for 90 days Chlorthalidone 25 MG 0.5 Tablet Orally O nce a day for 90 days 01/02/2020 12/05/2024 Doxycycline Hyclate 100 MG 1 capsule Ora lly twice a day for 7 days 09/06/2024 09/13/2024 Next Appt Details Follow Up: 1 week asthma f/u , Reason: Provider Name:[facility] , 09/26/2024 01:00:00 PM, [address] [place] [address], SUITE [facility], [place], [place], [phone], Provider Name:[facility]iana R[facility] , 12/12/2024 01:45:00 PM, [address] [place] [address], [address], [phone], Provider Name:Isaaclety Kaiden , 04/30/2025 09:00:00 AM, [address] [place] [address], [phone], Progress Notes * Lorenza BOJORQUEZ FDOB: (69 yo F)Acc No.[id number]:09/06/2024 Progress Note Patient:?Lorenza BOJORQUEZ Appointment Provider:?JIAN Gorman :1955???Age:69 Y???Sex:Female D ate:09/06/2024 Address:[address] [place], [place] [id number] Pcp:[facility] Subjective: * Chief Complaints: * ???1. 3 day f/u asthma. * HPI: ???Asthma:?Patient presents today for follow up of asthma exacerbation as well as right lobular pneumonia. She continues to take Prednisone 60 mg and just completed her Azithromycin today. She states she has been needing her updrafts every 4 hours still, but her breathing has become less labored. Her cough is still bothersome which causes much spasming when she is nearing her next updraft treatment. ?The patient presents for follow-up of asthma?which was diagnosed years ago.? * ROS:?General/Constitutional:?Denies?Change in appetite.?Denies?Chills.?Denies?Fever.?Denies?Sleep disturbance.?Denies?Weight gain.?Denies?Weight loss.?Respiratory:?Admits?Asthma.?Admits?Cough.?Denies?Pain with inspiration.?Denies?Shortness of breath.?Denies?Shortness of breath at rest.?Denies?Shortness of breath with exertion.?Denies?Sputum production.?Denies?Wheezing.?Cardiovascular:?Denies?Chest pain.?Denies?Chest pain with exertion.?Denies?Claudication.?Denies?Dizziness.?Denies?Dyspnea on exertion.?Denies?Irregular heartbeat.?Denies?Palpitations.?Denies?Shortness of breath.?Denies?Weight gain.?Hematology:?Denies?Bleeding problems.?Denies?Easy bruising.?Denies?Prolonged bleeding.?Denies?Swollen glands.? * Medical History:?Calculus of the gall bladder without mentionof cholecyctectomy, Gastro-esophageal reflux disease without esophagitis, Vitamin D deficiency, unspecified, Chronic kidney disease, stage 2 (mild), Moderate persistent asthma, uncomplicated, Hypertensive chronic kidney disease with stage 1 through stage 4 chronic kidney disease, or unspecified chronic kidney disease, Dysphagia, pharyngeal phase, Obstructive sleep apnea (adult) (pediatric), Strain of muscle(s) and tendon(s) of the rotator cuff of right shoulder, initial encounter (resolved 03/12/2021), Concussion without loss of consciousness, initial encounter (resolved 03/30/2021), COVID19 VENANCIO-Virus Identified (resolved 09/01/2021), Incomplete rotator cuff tear or rupture of right shoulder, not specified as traumatic (resolved 12/09/2021), Benign paroxysmal vertigo, left ear (resolved 04/06/2022), Aural vertigo, left ear (resolved 04/06/2022), Derangement of posterior horn of medial meniscus due to old tear or injury, left knee (resolved 04/06/2022), Single subsegmental pulmonary embolism without acute cor pulmonale (resolved 04/06/2022), Candidal stomatitis (resolved 04/06/2022), COVID19 VENANCIO-Virus Identified (resolved 04/06/2023), Complete rotator cuff tear or rupture of right shoulder, not specified as traumatic (resolved 04/06/2023), Influenza due to identified novel influenza A virus with other respiratory manifestations (resolved 10/17/2023), Non-pressure chronic ulcer of right calf limited to breakdown of skin (resolved 10/17/2023), Severe persistent asthma with (acute) exacerbation (resolved 10/17/2023). * Surgical History:?Appendecto my 1997, Tonsillectomy 1981, Cholecystectomy , TMJ Surgery, BL , Bone spurs B/L , rotator cuff tear repairs 05/2021. * Hospitalization/Major Diagno stic Procedure:?Asthma 01/2022, Asthma 02/2022. * Family History:?Father: dece ased, Atrial fibrillation, hypertension, CHF, skin cancer at 86 years old.?Spouse: alive 68 yrs, Diabetes, hypertension.?Mother: , Lupus, diabetes, hypertension. at 66 years old.?Son(s): alive 33 yrs, hypothyroid.?Daughter(s): alive 42 yrs, , SVT, asthma 1 daughter alive [...] medical reasons in the past 12 months??No ?Caffeine?Intake:?none ?Do you smoke marijuana?: Denies. ?Do you drink alcohol?: No. ???Miscellaneous:?Exercise: yes, walking. 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 ???Household:?Household?Marital status:?Drug/Alcohol:?AUDIT-C (Standard)?Did you have a drink containing alcohol in the past year??No ?Points?0 ?Interpretation?Negative * Medications:?Taking Erythrom ycin 2 % Gel 1 application Externally Twice a day , Taking ProAir RespiClick 108 (90 Base) MCG/ACT Aerosol Powder Breath Activated 2 puff as needed every 6 hrs , Taking Vitamin D 125 MCG (5000 UT) Capsule 1 capsule Orally Once a day , Taking Tylenol Extra Strength 500 MG Tablet 1 tablet as needed Orally every 6 hrs , Taking NexIUM 20 MG Capsule Delayed Release 1 capsule Orally Once a day , Taking Claritin 10 MG Tablet 1 tablet Orally Once a day , stop date 10/11/2024, Taking EpiPen 2-Leonardo 0.3 MG/0.3ML Solution Auto-injector as directed Injection , Taking Trelegy Ellipta 100-62.5-25 MCG/ACT Aerosol Powder Breath Activated 1 puff Inhalation Once a day , Taking Tezspire 210 MG/1.91ML Solution Prefilled Syringe as directed Subcutaneous , Taking Budesonide 0.5 MG/2ML Suspension 1 mL Inhalation Twice a day , Taking Ramipril 10 MG Capsule 1 capsule Orally Once a day , Taking Chlorthalidone 25 MG Tablet 0.5 Tablet Orally Once a day , stop date 05/04/2025, Taking Singulair 10 MG Tablet 1 tablet in the evening Orally Once a day , Taking Combivent Respimat 20-100 MCG/ACT Aerosol Solution 1 puff as needed Inhalation every 6 hrs , Taking predniSONE 20 MG Tablet Take 3 tablets daily for 1 week Orally Once a day , Taking Nebulizer System All-In-One - Miscellaneous as directed , Not- Taking/PRN Mucinex 600 MG Tablet Extended Release 12 Hour 1 tablet as needed Orally every 12 hrs , Not-Taking/PRN Ipratropium-Albuterol 0.5-2.5 (3) MG/3ML Solution 3 mL as needed Inhalation every 4 hrs , Medication List reviewed and reconciled with the patient * Allergies:?Penicillin G Sodi um, Levofloxacin, Bactrim, Latex Gloves, Omnipaque, Reglan, Roflumilast, Omeprazole, Metoclopramide HCl, Diazepam, Paxil, Sulfamethoxazole, Iodine, Spiriva Respimat: Chest Pain - Side Effects, Black Pepper-Turmeric. Objective: * Vitals:?Temp:95.6F, HR:115/m in, Ht:65in, Oxygen sat %:98%. Past Vitals:* 09/03/2024 Temp:96.1F, HR:113/min, Ht:6 5in, Oxygen sat %:97% * 08/27/2024 Temp:96.8F, HR:75/min, Wt:18 7lbs, BMI:31.12Index, Ht:65in, Oxygen sat %:97% * 08/22/2024 Temp:96.2F, HR:98/min, Wt:18 7lbs, BMI:31.12Index, Ht:65in, Oxygen sat %:100% * Examination: ???General Examination: ?GENERAL APPEARANCE:?Age appropriate, in no acute distress, well developed, well nourished.?HEAD:? atraumatic, normocephalic.?EYES:? sclera anicteric, extraocular movement full and smooth.?HEART:?regular rate and rhythm, S1, S2 normal.?LUNGS:?scattered amado wheezes throughout, better air movement noted during today's visit,?dry cough present during visit.?EXTREMITIES:?no clubbing, cyanosis, or edema.?NEUROLOGIC:?alert and oriented, gait normal.?PSYCH:? good eye contact, speech clear.? Assessment: * Assessment: 1.?Lobar pneumonia, unspecif ied organism - J18.1???2.?Moderate persistent asthma with (acute) exacerbation - J45.41 (Primary)??? Plan: * Treatment: 2.?Lobar pneumonia, unspecif ied organism? Start Doxycycline Hyclate Capsule, 100 MG, 1 capsule, Orally, twice a day, 7 days, 14 Capsule, Refills 0.?? Clinical Notes: See plan above.Patient is completing her azithromycin prescription today for underlying right lobular. Patient states 2 days ago she felt as though she needed to be seen in the ER due to her inability to stop coughing and catch her breath. Her oxygen level did remain above 90% but she felt as though she was not doing well. She did not call the office or go to the ER. Due to patient's continued expiratory wheeze, current asthma exacerbation symptoms, and right lobular pneumonia diagnosis, would like to treat with doxycycline for further improvement given her recent underlying diagnoses, symptoms, and to further resolve her pneumonia. Encouraged patient to ambulate as much as she can tolerate to help exercise her lungs given her underlying pneumonia diagnoses. Patient also continue on prednisone as well as underlying asthma medications to help with current asthma exacerbation symptoms?? 3.?Others? Refill Ramipril Capsule, 10 MG, 1 capsule, Orally, Once a day, 90 days, 90, Refills 0;?Refill Chlorthalidone Tablet, 25 MG, 0.5 Tablet, Orally, Once a day, 90 days, 45, Refills 0.?? * Follow Up:?1 week asthma f/u * Images: Billing Information: * Visit Code:? 09920 Office Visit, Est Pt., Level 4. * Procedure Codes:? Care Plan Details* * Sign off status: Completed true * Appointment Provider:?JIAN Gorman Date:?09/06/2024 Generated for Isaak dewitt/Rut/Akilaitting on:?09/25/2024 05:03 PM EDT History and Physical Notes * HPI (History of Present Illness) Category Sub-Category Detail Notes Category Not es Asthma The patient presents for follow-up of asthma which was diagnosed years ago Examination Category Sub-Category Detail Notes Category Not es General Examination GENERAL APPEARANCE: Age appr opriate, in no acute distress, well developed, well nourished HEAD: atraumatic, normocep halic EYES: sclera anicteric, ex traocular movement full and smooth HEART: regular rate and rhy thm, S1, S2 normal LUNGS: scattered amado wheeze s throughout, better air movement noted during today's visit, dry cough present during visit NEUROLOGIC: alert and oriented, gait normal EXTREMITIES: no clubbing, cyanosi s, or edema PSYCH: good eye contact, sp eech clear
--- OUTSIDE RECORDS SUMMARY | 2024-09-25 17:03 | XMS_ITS | Patient Health Record ---
Author Organization [facility] Address [address] [place] [address] [phone] Care Team Providers Care Medical Laboratory Technicians Name Role Phone [facility] Primary Care Provider [phone] Rachel Sanchez Unavailable [phone] Allergies Allergen (clinical drug ingredient) Drug/Non Drug [...] Active Results Component Value Reference Range Notes Urinalysis, Complete-[id number] Reviewed date:08/15/2024 05:35:31 PM Interpretation: Performing Lab:[facility], [address], [place], Phone - [phone], Director - Steve Notes/Report: Specific [place] 1.009 1.005-1.030 pH 7.0 5.0-7.5 Urine-Color Yellow Yellow Appearance Clear Clear WBC Esterase 1+ Negative Protein Negative Negative/Trace Glucose Negative Negative [...] seen /lpf Bacteria None seen None seen/Few Albumin/Creatinine Ratio,Uri ne-[id number] Reviewed date:08/15/2024 05:35:31 PM Interpretation: Performing Lab:[facility], [facility], Phone - [phone], Director - MDJoy Notes/Report: Creatinine, Urine 37.0 Not Estab. mg/dL Albumin, Urine <3.0 Not Estab. ug/mL Alb/Creat Ratio <8 0-29 mg/g creat Normal: 0 - 29 Moderately increased: 30 - 300 Severely increased: >300 Comp. Metabolic Panel (14)-3 14990 Reviewed date:08/15/2024 05:35:31 PM Interpretation: Performing Lab:[facility], Sp[facility], [place], Phone - [phone], Director - MDJoy Notes/Report: Glucose 100 70-99 mg/dL BUN 15 8-27 mg/dL Creatinine 0.82 0.57-1.00 mg/dL eGFR 78 >59 mL/min/1.73 BUN/Creatinine Ratio 18 12-28 Sodium 143 134-144 mmol/L Potassium 4.4 3.5-5.2 mmol/L Chloride 103 96-106 mmol/L Carbon Dioxide, Total 19 20-29 mmol/L Calcium 9.7 8.7-10.3 mg/dL Protein, Total 6.5 6.0-8.5 g/dL Albumin 4.3 3.9-4.9 g/dL Globulin, Total 2.2 1.5-4.5 g/dL Bilirubin, Total <0.2 0.0-1.2 mg/dL Alkaline Phosphatase 92 44-121 IU/L AST (SGOT) 24 0-40 IU/L ALT (SGPT) 18 0-32 IU/L Urinalysis, Complete-[id number] Reviewed date:04/22/2024 07:39:03 AM Interpretation: Performing Lab:[facility], [facility], [place], Phone - [phone], Director - MDGavioaty Notes/Report: Specific [place] 1.011 1.005-1.030 pH 7.5 5.0-7.5 Urine-Color Yellow [...] None seen /lpf Bacteria Few None seen/Few CBC With Differential/Platel et-[id number] Reviewed date:04/22/2024 07:39:03 AM Interpretation: Performing Lab:[facility], [address] [facility], [place], Phone - [phone], Director - Steve Notes/Report: WBC 12.0 3.4-10.8 x10E3/uL RBC 5.06 [...] % Immature Grans (Abs) 0.1 0.0-0.1 x10E3/uL Vitamin D, 52-[id number] Reviewed date:04/22/2024 07:39:03 AM Interpretation: Performing Lab:[facility], [address] [facility], [place], Phone - [phone], Director - Steve Notes/Report: Vitamin D, 25-Hydroxy 23.6 30.0-100.0 ng/mL Vitamin D deficiency has been defined by the [place] [employer] and an Endocrine Society practice guideline as a level of serum 25-OH vitamin D less than 20 ng/mL (1,2). The Endocrine Society went on to further define vitamin D insufficiency as a level between 21 and 29 ng/mL (2). 1. IOM ([place] [employer]). 2010. Dietary reference intakes for calcium and D. [place]: The National Academies Press. 2. Daniel MF, Peace CAMACHO, Vamsi LOPEZ, et al. Evaluation, treatment, and prevention of vitamin D deficiency: an Endocrine Society clinical practice guideline. JCEM. 2010; 96(7):1911-30. [id number] Reviewed date:04/22/2024 07:39:03 AM Interpretation: Performing Lab:[facility], [address] [facility], Phone - [phone], Director - Steve Notes/Report: D-Dimer 0.35 0.00-0.49 mg/L FEU According to the assay process control supervisor's published package insert, a normal (<0.50 mg/L FEU) D-dimer result in conjunction with a non-high clinical probability assessment, excludes deep vein thrombosis (DVT) and pulmonary embolism (PE) with high sensitivity. . D-dimer values increase with age and this can make VTE exclusion of an older population difficult. To address this, the [place] [employer], based on best available [...] year old 0.80 mg/L FEU. Albumin/Creatinine Ratio,Uri ne-[id number] Reviewed date:04/22/2024 07:39:03 AM Interpretation: Performing Lab:[facility] [place], [address] [facility], [place], Phone - [phone], Director - MDCheryy Notes/Report: Creatinine, Urine 58.8 Not Estab. mg/dL Albumin, Urine <3.0 Not Estab. ug/mL Alb/Creat Ratio <5 0-29 mg/g creat Normal: 0 - 29 Moderately increased: 30 - 300 Severely increased: >300 Comp. Metabolic Panel (14)-3 86005 Reviewed date:04/22/2024 07:39:03 AM Interpretation: Performing Lab:[facility] [place], [address] [facility], [place], Phone - [phone], Director - Steve Notes/Report: Glucose 86 70-99 mg/dL BUN 18 [...] 0-40 IU/L ALT (SGPT) 16 0-32 IU/L LP+Non-HDL Cholesterol-17977 5 Reviewed date:04/22/2024 07:39:03 AM Interpretation: Performing Lab:[facility] [place], [address] [facility], [place], Phone - [phone], Director - MDCheryy Notes/Report: Cholesterol, Total 215 100-199 mg/dL Triglycerides 146 0-149 mg/dL HDL Cholesterol 71 >39 mg/dL VLDL Cholesterol Manuel 25 5-40 mg/dL LDL Chol Calc (NIH) 119 0-99 mg/dL Non-HDL Cholesterol 144 0-129 mg/dL HCV Antibody-[id number] Reviewed date:04/22/2024 07:39:03 AM Interpretation: Performing Lab:[facility] [place], [address] [facility], Phone - [phone], Director - Steve Notes/Report: Hep C Virus Ab Non Reactive Non Reactive HCV antibody alone does not differentiate between previously resolved infection and active infection. Equivocal and Reactive HCV antibody results should be followed up with an HCV RNA test to support the diagnosis of active HCV infection. MM Digital Mammo Screening Reviewed date:07/19/2024 10:07:53 AM Interpretation: Performing Lab: Notes/Report: PROCEDURE: MM Digital Mammo Screening INDICATION: Screening for breast cancer. No known palpable abnormalities. COMPARISON: 06/23/2023 and multiple earlier studies. TECHNIQUE: Full-field digital CC and MLO 3D tomosynthesis images of both breasts were acquired. Computer-aided detection (CAD) was utilized in the interpretation of this study. DENSITY: There are scattered areas of fibroglandular density. FINDINGS: No suspicious masses, suspicious microcalcifications, or areas of architectural distortion are seen in either breast to suggest malignancy. IMPRESSION: No mammographic evidence of malignancy. RECOMMENDATION: Annual mammographic screening BI-RADS: 1 (Negative) Lay letter mailed to patient WSN: [id number] Ordering Physician: Liana Richey Dictated By: Aristeo Pierce MD PROCEDURE: MM Digita l Mammo Screening INDICATION: Screenin g for breast cancer. No known palpable abnormalities. COMPARISON: and multiple earlier studies. TECHNIQUE: Full-fiel d digital CC and MLO 3D tomosynthesis images of both breasts were acquired. Computer-aided detection (CAD) was utilized in the interpretation of this study. DENSITY: There are scattered areas of fibroglandular density. FINDINGS: No suspici ous masses, suspicious microcalcifications, or areas of architectural distortion are seen in either breast to suggest malignancy. IMPRESSION: No mammographic evidence of malignancy. RECOMMENDATION: Carmen al mammographic screening BI-RADS: 1 (Negative) Lay letter mailed to patient WSN: [id number] Ordering Physician: Liana Richey [id number] Reviewed date:04/10/2024 06:14:28 PM Interpretation: Performing Lab:[facility] [place], [address] [facility], [place], Phone - [phone], Director - Steve Notes/Report: D-Dimer 0.42 0.00-0.49 mg/L FEU According to the assay process control supervisor's published package insert, a normal (<0.50 mg/L FEU) D-dimer result in conjunction with a non-high clinical probability assessment, excludes deep vein thrombosis (DVT) and pulmonary embolism (PE) with high sensitivity. . D-dimer values increase with age and this can make VTE exclusion of an older population difficult. To address this, the [place] [employer], based on best available [...] an 82 year old 0.80 mg/L FEU. Respiratory Panel w/ SARS-Co [id number] Reviewed date:12/02/2023 09:25:19 AM Interpretation: Performing Lab:[facility], [address] [place] [address], [place], Phone - [phone], Director - Steve Notes/Report: Clinical Information:SRC: Adenovirus Not Detected Not [...] Report Reviewed date:12/02/2023 09:25:19 AM Interpretation: Performing Lab:[facility], [address] [place] [address], Phone - [phone], Director - Steve Notes/Report: Clinical Information:SRC: Vitamin D, 89-[id number] Reviewed date:11/15/2023 05:38:04 PM Interpretation: Performing Lab:[facility], [address] [facility], Phone - [phone], Director - Steve Notes/Report: Vitamin D, 25-Hydroxy 37.2 30.0-100.0 ng/mL Vitamin D deficiency has been defined by the [place] [employer] and an Endocrine Society practice guideline as a level of serum 25-OH vitamin D less than 20 ng/mL (1,2). The Endocrine Society went on to further define vitamin D insufficiency as a level between 21 and 29 ng/mL (2). 1. IOM ([place] [employer]). 2010. Dietary reference intakes for calcium and D. [place]: The National Academies Press. 2. Daniel MF, [place], Vamsi LOPEZ, et al. Evaluation, treatment, and prevention of vitamin D deficiency: an Endocrine Society clinical practice guideline. JCEM. 2010; 96(7):1911-30. [id number] Reviewed date:11/15/2023 05:38:04 PM Interpretation: Performing Lab:[facility], [address] [place] [address], Phone - [phone], Director - Steve Notes/Report: D-Dimer 0.71 0.00-0.49 mg/L FEU According to the assay process control supervisor's published package insert, a normal (<0.50 mg/L FEU) D-dimer result in conjunction with a non-high clinical probability assessment, excludes deep vein thrombosis (DVT) and pulmonary embolism (PE) with high sensitivity. . D-dimer values increase with age and this can make VTE exclusion of an older population difficult. To address this, the [place] [employer], based on best available [...] 0.80 mg/L FEU. Comp. Metabolic Panel (14)-3 25863 Reviewed date:11/15/2023 05:38:04 PM Interpretation: Performing Lab:[facility], [address] [facility], Phone - [phone], Director - Steve Notes/Report: Glucose 91 70-99 [...] IU/L ALT (SGPT) 15 0-32 IU/L LP+Non-HDL Cholesterol-46259 5 Reviewed date:11/15/2023 05:38:04 PM Interpretation: Performing Lab:[facility] [place], [address] [facility], Phone - [phone], Director - Roseannay Notes/Report: Cholesterol, Total 219 100-199 mg/dL Triglycerides 85 0-149 mg/dL HDL Cholesterol 67 >39 mg/dL VLDL Cholesterol Manuel 15 5-40 mg/dL LDL Chol Calc ([facility]) 137 0-99 mg/dL Non-HDL Cholesterol 152 0-129 mg/dL PDF Report Reviewed date:11/15/2023 05:38:04 PM Interpretation: Performing Lab:[facility], [address] [facility], Phone - [phone], Director - Steve Notes/Report: Chest 2 Views Frontal and La t Reviewed date:09/03/2024 03:44:12 PM Interpretation: Performing Lab: Notes/Report: Examination: Chest performed on 09/03/2024. History: Moderate persistent asthma. Findings: Frontal and lateral views of the chest are compared to a prior study dated 04/25/2024. The cardiac and mediastinal silhouettes are within normal limits. Linear right middle lobe opacity is demonstrated. There is osteophyte formation within the spine. IMPRESSION: Right middle lobe opacity which may represent atelectasis, infiltrate, or scar. WSN: [id number] Ordering Physician: Liana Richey Dictated By: Michelle Child MD Examination: Chest performed on 09/03/2024. History: Moderate persistent asthma. Findings: Frontal and lateral views of the chest are compared to a prior study dated 04/25/2024. The cardiac and mediastinal silhouettes are within normal limits. Linear right middle lobe opacity is demonstrated. There is osteophyte formation within the spine. IMPRESSION: Right middle lobe opacity which may represent atelectasis, infiltrate, or scar. WSN: [id number] Ordering Physician: Liana R[facility]y Respiratory Panel w/ SARS-Co [id number] Reviewed date:09/04/2024 12:48:02 PM Interpretation: Performing Lab:[facility], [address] [place] [address], [place], Phone - [phone], Director - Steve Notes/Report: Clinical Information:SRC: Adenovirus Not Detected Not Detected Coronavirus HKU1 Not Detected Not Detected Coronavirus NL63 Not Detected Not Detected Coronavirus 229E Not Detected Not Detected Coronavirus OC43 Not Detected Not Detected SARS-CoV-2 Not Detected Not Detected Human Metapneumovirus Detected Not Detected Human Rhinovirus/Enterovirus Not Detected [...] Detected Mycoplasma pneumoniae Not Detected Not Detected Chest 2 Views Frontal and La t [...] There is no acute cardiopulmonary disease. WSN: [id number] Ordering Physician: Liana Richey Dictated By: Michelle Child MD Examination: Chest performed on 04/25/2024. History: Cough. Findings: Frontal and lateral views of the chest are compared to a prior study dated 02/13/2024. The cardiac and mediastinal silhouettes are within normal limits. The lungs are clear. Osteophyte formation within the thoracic spine is noted. Impression: There is no acute cardiopulmonary disease. WSN: [id number] Ordering Physician: Liana Richey PDF Report Reviewed date:01/30/2024 06:50:01 PM Interpretation: Performing Lab:[facility] [place], [address] [place] [address], Phone - [phone], Director - [facility] Notes/Report: Comp. Metabolic Panel (14)-3 [id number] Reviewed date:01/30/2024 06:50:01 PM Interpretation: Performing Lab:[facility] [place], [address] [facility], [place], Phone - [phone], Director - [facility] Notes/Report: Glucose 80 70-99 mg/dL BUN 23 [...] 0-40 IU/L ALT (SGPT) 18 0-32 IU/L Albumin/Creatinine Ratio,Aimei ne-[id number] Reviewed date:01/30/2024 06:50:01 PM Interpretation: Performing Lab:[facility] [place], [address] [place] [address], Phone - [phone], Director - Steve Notes/Report: Creatinine, Urine 47.5 Not Estab. mg/dL Albumin, Urine <3.0 Not Estab. ug/mL Alb/Creat Ratio <6 0-29 mg/g creat Normal: 0 - 29 Moderately increased: 30 - 300 Severely increased: >300 [id number] Reviewed date:01/30/2024 06:50:01 PM Interpretation: Performing Lab:[facility] [place], [address] [place] [address], Phone - [phone], Director - Steve Notes/Report: D-Dimer 0.46 0.00-0.49 mg/L FEU According to the assay process control supervisor's published package insert, a normal (<0.50 mg/L FEU) D-dimer result in conjunction with a non-high clinical probability assessment, excludes deep vein thrombosis (DVT) and pulmonary embolism (PE) with high sensitivity. . D-dimer values increase with age and this can make VTE exclusion of an older population difficult. To address this, the [place] [employer], based on best available [...] an 82 year old 0.80 mg/L FEU. Vitamin D, [id number] Reviewed date:01/30/2024 06:50:01 PM Interpretation: Performing Lab:[facility] [place], [address] [place] [address], [place], Phone - [phone], Director - Steve Notes/Report: Vitamin D, 25-Hydroxy 26.2 30.0-100.0 ng/mL Vitamin D deficiency has been defined by the [place] [employer] and an Endocrine Society practice guideline as a level of serum 25-OH vitamin D less than 20 ng/mL (1,2). The Endocrine Society went on to further define vitamin D insufficiency as a level between 21 and 29 ng/mL (2). 1. IOM ([place] [employer]). 2010. Dietary reference intakes for calcium and D. [place]: The National Academies Press. 2. Daniel MF, Peace CAMACHO, Vamsi LOPEZ, et al. Evaluation, treatment, and prevention of vitamin D deficiency: an Endocrine Society clinical practice guideline. JCEM. 2010; 96(7):1911-30. Urinalysis, Complete-[id number] Reviewed date:01/30/2024 06:50:01 PM Interpretation: Performing Lab:[facility] [place], [address] [place] [address], Phone - [phone], Director - Steve Notes/Report: Specific [place] 1.011 1.005-1.030 pH 7.0 5.0-7.5 Urine-Color Yellow [...] seen /lpf Bacteria None seen None seen/Few Reason For Referral No Information Medications Medication SIG (Take, Route, Frequency, Duration) Notes Start Date End Date Status predniSONE 10 MG 3 tablet with food o r milk Orally Once a day for 30 days Active Trelegy Ellipta 100-62.5-25 MCG/ACT 1 puff Inhalation Once a day for 90 days Active Ipratropium-Albuterol 0.5-2.5 (3) MG/3ML 3 mL as needed Inhalation every 4 hrs for 90 days Not-Taking Budesonide 0.5 MG/2ML 1 mL Inhalation Tw ice a day Active Tezspire 210 MG/1.91ML as directed Subcutaneous Active Erythromycin 2 % 1 application Externally Twice a day for 30 days 01/19/2023 Active Combivent Respimat 20-100 MCG/ACT 1 puff as needed Inhalation every 6 hrs for 90 days Active Singulair 10 MG 1 tablet in the evening Orally Once a day for 90 days Active Vitamin D 125 MCG (5000 UT) 1 capsule Orally Once a day Active Ramipril 10 MG 1 capsule Orally Onc e a day for 90 days Active ProAir RespiClick 108 (90 Base) MCG/ACT 2 puff as needed every 6 hrs for 90 days Active Nebulizer System All-In-One - as directed for 90 days 09/06/2024 Active NexIUM 20 MG 1 capsule Orally Onc e a day for 90 days Active Chlorthalidone 25 MG 0.5 Tablet Orally O nce a day for 90 days 01/02/2020 12/05/2024 Active Tylenol Extra Strength 500 MG 1 tablet as needed Orally every 6 hrs Active EpiPen 2-Leonardo 0.3 MG/0.3ML as directed Injection for 30 days 10/19/2022 Active Claritin 10 MG 1 tablet Orally Once a day for 90 days 10/11/2024 Active Mucinex 600 MG 1 tablet as needed Orally every 12 hrs Not-Taking Immunizations Vaccine Route Administration Date Status Comme nts MMR Unknown 06/05/2019 Administered Influenza-Afluria (IIV4) Unknown 03/24/2017 Administered Influenza, seasonal, injectable (split), for 3 yrs and up IM Intramuscular 03/06/2018 Administered Influenza Vaccine, Seasonal, Quadrivalent, Recombinant, Preservative Free Unknown 04/09/2021 Administered *Uxnaoychn-Gjrl-HU IM Intramuscular 03/17/2022 Administere d *Influenza-Fluzone Unknown 04/04/2024 Administered *PREVNAR 20 IM Intramuscular 04/06/2023 Administered BQEDV-62-Kffbnl Vaccine Unknown 09/03/2020 Administered EPWCG-05-Labmof Vaccine Unknown 08/12/2020 Administered Influenza vaccine Flucelvax quadrivalent Unknown 03/18/2023 Administered Influenza Unknown 03/20/2020 Administered Influenza Unknown 03/09/2019 Administered Influenza Unknown 04/05/2016 Administered Td (adult) preservative free Unknown 10/27/2006 Administered Td (adult) preservative free Unknown 06/06/1994 Administered Pneumococcal polysaccharide PPV23 Unknown 10/04/2010 Administered Influenza Vaccine, Seasonal, Quadrivalent, Recombinant, Preservative Free Unknown 04/09/2021 Administered *Tdap Unknown 09/08/2016 Administered Date estimated Done at [facility] Social History Tobacco Use: Social History Observation [...] Status W/U Status Risk Notes Problem Thrombophilia (543314743) Other thrombophilia (D68.69) Active confirmed Problem Eosinophilia (469569629) Eosinophilia (D72.1) Active confirmed Problem Vitamin D deficiency (91945837) Vitamin D deficiency, unspecified (E55.9) Active confirmed Problem Lactose intolerance (966934527) Lactose intolerance, unspecified (E73.9) Active confirmed Problem Mixed hyperlipidemia (599228999) Mixed hyperlipidemia (E78.2) Active confirmed Problem Posttraumatic stress disorder (41274741) Post-traumatic stress disorder, chronic (F43.12) Active confirmed Problem Obstructive sleep apnea syndrome (27564205) Obstructive sleep apnea (adult) (pediatric) (G47.33) Active confirmed Problem Brachial plexus disorder (0148836) Brachial plexus disorders (G54.0) Active confirmed Problem Carpal tunnel syndrome (11995391) Carpal tunnel syndrome, right upper limb (G56.01) Active confirmed Problem Chronic kidney disease due to hypertension (909980458450085) Hypertensive chronic kidney disease with stage 1 through stage 4 chronic kidney disease, or unspecified chronic kidney disease (I12.9) Active confirmed Problem Uncomplicated moderate persistent asthma (592625167) Moderate persistent asthma, uncomplicated (J45.40) Active confirmed Problem Uncomplicated severe persistent asthma (849146027) Severe persistent asthma, uncomplicated (J45.50) Active confirmed Problem Gastro-esophageal reflux disease without esophagitis (690235587) Gastro-esophageal reflux disease without esophagitis (K21.9) Active confirmed Problem Lumbosacral spondylosis without myelopathy (73707001) Other spondylosis with radiculopathy, lumbar region (M47.26) Active confirmed Problem Displacement of lumbar intervertebral disc without myelopathy (83806789) Other intervertebral disc displacement, lumbar region (M51.26) Active confirmed Problem Chronic kidney disease stage 2 (056536531) Chronic kidney disease, stage 2 (mild) (N18.2) Active confirmed Problem History of pulmonary embolus (832258203) Personal history of pulmonary embolism (Z86.711) Active confirmed Problem Allergy to penicillin (54338649) Allergy status to penicillin (Z88.0) Active confirmed Problem History of polyp of colon (situation) (617409776) Personal history of colonic polyps (Z86.010) Active confirmed Problem Spinal stenosis of lumbar region (56570220) Spinal stenosis, lumbar region without neurogenic claudication (M48.061) Active confirmed Problem Gastroesophageal reflux disease with esophagitis (disorder) (915965354) Gastro-esophageal reflux disease with esophagitis, without bleeding (K21.00) Active confirmed Problem Body mass index 30.00 to 34.99 (354038270234235) Body mass index [BMI] 31.0-31.9, adult (Z68.31) Active confirmed Problem Exacerbation of moderate persistent asthma (disorder) (216083329) Moderate persistent asthma with (acute) exacerbation (J45.41) Inactive confirmed Problem Palpitations (73463337) Palpitations (R00.2) Inactive confirmed Problem Oropharyngeal dysphagia (96096697) Dysphagia, pharyngeal phase (R13.13) Inactive confirmed Problem Candidiasis of mouth (86675646) Candidal stomatitis (B37.0) Problem resolved confirmed Problem Benign paroxysmal positional vertigo (862458450) Benign paroxysmal vertigo, left ear (H81.12) Problem resolved confirmed Problem Aural vertigo, left ear (H81.312) Problem resolved confirmed Problem influenza due to influenza a virus with upper respiratory signs (disorder) (322216506913745) Influenza due to identified novel influenza A virus with other respiratory manifestations (J09.X2) Problem resolved confirmed Problem Acute severe exacerbation of severe persistent asthma (017238668) Severe persistent asthma with (acute) exacerbation (J45.51) Problem resolved confirmed Problem Skin ulcer of calf (049281355) 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) Problem resolved confirmed Problem Derangement of posterior horn of medial meniscus (8893002) Derangement of posterior horn of medial meniscus due to old tear or injury, left knee (M23.222) Problem resolved confirmed Problem Nontraumatic rotator cuff tear (disorder) (707483207) Incomplete rotator cuff tear or rupture of right shoulder, not specified as traumatic (M75.111) Problem resolved confirmed Problem Full thickness rotator cuff tear (076777082) Complete rotator cuff tear or rupture of right shoulder, not specified as traumatic (M75.121) Problem resolved confirmed Problem Concussion with no loss of consciousness (86828305) Concussion without loss of consciousness, initial encounter (S06.0X0A) Problem resolved confirmed Problem Strain of muscle of right shoulder (01540183577549747) Strain of muscle(s) and tendon(s) of the rotator cuff of right shoulder, initial encounter (S46.011A) Problem resolved confirmed Problem Single subsegmental pulmonary embolism without acute cor pulmonale (I26.93) Problem resolved confirmed Problem COVID19 VENANCIO-Viru s Identified (U07.1) Problem resolved confirmed Vital Signs Heart Rate 80 /min 09/17/2024 Temperature 97.8 degrees Fahrenheit 09/17/2024 Blood pressure diastolic 72 mm Hg 09/17/2024 Oximetry 98 % 09/17/2024 Height 65 in 09/17/2024 Blood pressure systolic 120 mm Hg 09/17/2024 Weight 179 lbs 09/12/2024 BMI 29.78 kg/m2 09/12/2024 Encounters Encounter Location Date Provider Diagnosis Liana Richey MD [address] [id number] 10/17/2023 Liana Richey Hypertensive chronic kidney disease [...] of pulmonary embolism Z86.711 Liana Richey MD [address] [id number] 11/30/2023 Rachel Sanchez Severe persistent as thma, uncomplicated J45.50 ; Acute upper respiratory infection, unspecified J06.9 ; Hypertensive chronic kidney disease with stage 1 through stage 4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
--- OUTSIDE RECORDS SUMMARY | 2024-09-25 17:03 | XMS_ITS ---
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 Role Phone [facility] Primary Care Provider [phone] Allergies Allergen (clinical drug ingredient) Drug/Non Drug [...] Duration) Notes Start Date End Date Status Ramipril 10 MG 1 capsule Orally Onc e a day for 90 days Active Chlorthalidone 25 MG 0.5 Tablet Orally O nce a day for 90 days 01/02/2020 12/05/2024 Active Mucinex 600 MG 1 tablet as needed Orally every 12 hrs Not-Taking predniSONE 10 MG 3 tablet with food o r milk Orally Once a day for 30 days Active Ipratropium-Albuterol 0.5-2.5 (3) MG/3ML 3 mL as needed Inhalation every 4 hrs for 90 days Not-Taking Nebulizer System All-In-One - as directed for 90 days 09/06/2024 Active Budesonide 0.5 MG/2ML 1 mL Inhalation Tw ice a day Active Tezspire 210 MG/1.91ML as directed Subcutaneous Active Combivent Respimat 20-100 MCG/ACT 1 puff as needed Inhalation every 6 hrs for 90 days Active Singulair 10 MG 1 tablet in the evening Orally Once a day for 90 days Active NexIUM 20 MG 1 capsule Orally Onc e a day for 90 days Active Tylenol Extra Strength 500 MG 1 tablet as needed Orally every 6 hrs Active EpiPen 2-Leonardo 0.3 MG/0.3ML as directed Injection for 30 days 10/19/2022 Active Claritin 10 MG 1 tablet Orally Once a day for 90 days 10/11/2024 Active Trelegy Ellipta 100-62.5-25 MCG/ACT 1 puff Inhalation Once a day for 90 days Active Vitamin D 125 MCG (5000 UT) 1 capsule Orally Once a day Active ProAir RespiClick 108 (90 Base) MCG/ACT 2 puff as needed every 6 hrs for 90 days Active Erythromycin 2 % 1 application Externally Twice a day for 30 days 01/19/2023 Active Social History Tobacco Use: Social History Observation Description Date Details (start date - stop date) Never Smoker NA - NA AUDIT-C (Standard) Question Answer Notes Did you have a drink containing alcohol in the p ast year? No Points 0 Interpretation Negative Tobacco Control (Standard) Question Answer Notes Tobacco use: Nonsmoker Vital Signs Blood pressure systolic 120 mm Hg 09/18/19 25 Blood pressure diastolic 72 mm Hg 025 Temperature 97.8 degrees Fahrenheit 09/18/19 25 Heart Rate 80 /min 09/17/2024 Height 65 in 09/17/2024 Oximetry 98 % 09/17/2024 Encounters Encounter Location Date Provider Diagnosis [facility] MD [address] [phone] 09/17/2024 [facility] Moderate persistent asthma with (acute) exacerbation J45.41 and Hypertensive chronic kidney disease with stage 1 through stage 4 chronic kidney disease, or unspecified chronic kidney disease I12.9 Assessments Encounter Date Diagnosis (ICD Code) Assessment Notes Treatment Notes Treatment Clinical Notes Section Notes 09/17/2024 Moderate persistent asthma with (acute) exacerbation (ICD-10 - J45.41) She has reduced her prednisone in a stepwise manner from 60 to 40 mg. Her peak flows remain relatively stable at about 159. This is still 25% less than her best. At the present time she can continue to taper her prednisone in a stepwise manner to 30 mg and reevaluate her status. 09/17/2024 Hypertensive chronic kidney disease with stage 1 through stage 4 chronic kidney disease, or unspecified chronic kidney disease (ICD-10 - I12.9) Stable at present. Continue current medical therapy 09/17/2024 Other This note was created with voice dictation recognition software and may contain errors of grammar and syntax. Also labs were reviewed with patient. Plan Of Treatment Medication Medication Name Sig Start Date Stop Date Notes predniSONE 10 MG 3 tablet with food o r milk Orally Once a day for 30 days Next Appt Details Follow Up: 1 Week, Reason: A sthma Provider Name:[facility] , 09/26/2024 01:00:00 PM, [address] [place] [address], [phone], Provider Name:[facility] , 12/12/2024 01:45:00 PM, [address] [place] [address], [phone], Provider Name:[facility] , 04/30/2025 09:00:00 AM, [address] [place] [address], [phone], Procedure Notes * Category Sub-Category Detail Notes Peak flow Result 159 Progress Notes * Lorenza BOJORQUEZ FDOB: [birth year] (69 yo F)Acc No.[id number]:09/17/2024 Progress Note Patient:?Lorenza BOJORQUEZ Provider:?[facility] MD :[id number]???Age:69 Y???Sex:Female D ate:09/17/2024 Address:[address] [place], [place] [phone] Subjective: * Chief Complaints: * ???1 week f/u asthma * Medical History:? * Surgical History:?Appendecto my [...] No. ???Miscellaneous:?Exercise: yes, walking. 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 ???Household:?Household?Marital status:?Drug/Alcohol:?AUDIT-C (Standard)?Did you have a drink containing alcohol in the past year??No ?Points?0 ?Interpretation?Negative * Medications:?TakingErythromy hammad 2 % Gel 1 application Externally Twice a day ProAir RespiClick 108 (90 Base) MCG/ACT Aerosol Powder Breath Activated 2 puff as needed every 6 hrs Vitamin D 125 MCG (5000 UT) Capsule 1 capsule Orally Once a day Tylenol Extra Strength 500 MG Tablet 1 tablet as needed Orally every 6 hrs NexIUM 20 MG Capsule Delayed Release 1 capsule Orally Once a day Claritin 10 MG Tablet 1 tablet Orally Once a day , stop date 10/11/2024EpiPen 2-Leonardo 0.3 MG/0.3ML Solution Auto-injector as directed Injection Trelegy Ellipta 100-62.5-25 MCG/ACT Aerosol Powder Breath Activated 1 puff Inhalation Once a day Tezspire 210 MG/1.91ML Solution Prefilled Syringe as directed Subcutaneous Budesonide 0.5 MG/2ML Suspension 1 mL Inhalation Twice a day Singulair 10 MG Tablet 1 tablet in the evening Orally Once a day Combivent Respimat 20-100 MCG/ACT Aerosol Solution 1 puff as needed Inhalation every 6 hrs Nebulizer System All-In-One - Miscellaneous as directed Ramipril 10 MG Capsule 1 capsule Orally Once a day Chlorthalidone 25 MG Tablet 0.5 Tablet Orally Once a day , stop date 12/05/2024predniSONE 10 MG Tablet 4 tablet with food or milk Orally Once a day Taking Erythromycin 2 % Gel 1 application Externally Twice a day Taking ProAir RespiClick 108 (90 Base) MCG/ACT Aerosol Powder Breath Activated 2 puff as needed every 6 hrs Taking Vitamin D 125 MCG (5000 UT) Capsule 1 capsule Orally Once a day Taking Tylenol Extra Strength 500 MG Tablet 1 tablet as needed Orally every 6 hrs Taking NexIUM 20 MG Capsule Delayed Release 1 capsule Orally Once a day Taking Claritin 10 MG Tablet 1 tablet Orally Once a day , stop date 10/11/2024Taking EpiPen 2-Leonardo 0.3 MG/0.3ML Solution Auto-injector as directed Injection Taking Trelegy Ellipta 100-62.5-25 MCG/ACT Aerosol Powder Breath Activated 1 puff Inhalation Once a day Taking Tezspire 210 MG/1.91ML Solution Prefilled Syringe as directed Subcutaneous Taking Budesonide 0.5 MG/2ML Suspension 1 mL Inhalation Twice a day Taking Singulair 10 MG Tablet 1 tablet in the evening Orally Once a day Taking Combivent Respimat 20-100 MCG/ACT Aerosol Solution 1 puff as needed Inhalation every 6 hrs Taking Nebulizer System All-In-One - Miscellaneous as directed Taking Ramipril 10 MG Capsule 1 capsule Orally Once a day Taking Chlorthalidone 25 MG Tablet 0.5 Tablet Orally Once a day , stop date 12/05/2024Taking predniSONE 10 MG Tablet 4 tablet with food or milk Orally Once a day Not-Taking/PRNMucinex 600 MG Tablet Extended Release 12 Hour 1 tablet as needed Orally every 12 hrs Ipratropium-Albuterol 0.5-2.5 (3) MG/3ML Solution 3 mL as needed Inhalation every 4 hrs Medication List reviewed and reconciled with the patientNot-Taking/PRN Mucinex 600 MG Tablet Extended Release 12 Hour 1 tablet as needed Orally every 12 hrs Not-Taking/PRN Ipratropium-Albuterol 0.5-2.5 (3) MG/3ML Solution 3 mL as needed Inhalation every 4 hrs Medication List reviewed and reconciled with the patient * Allergies:?Penicillin G Sodi umLevofloxacinBactrimLatex GlovesOmnipaqueReglanRoflumilastOmeprazoleMetoclopramide HClDiazepamPaxilSulfamethoxazoleIodineSpiriva Respimat: Chest Pain - Side EffectsBlack Pepper-Turmericno[Allergies Verified] Objective: * Vitals:?Temp:97.8F, HR:80/mi n, BP:Sitting Right Arm: 120/72mm Hg, Ht:65in, Oxygen sat %:98%. Past Vitals:* 09/12/2024 Temp:96.3F, HR:81/min, BP:Si tting Right Arm: 122/70mm Hg, Wt:179lbs, BMI:29.78Index, Ht:65in, Oxygen sat %:94% * 09/06/2024 Temp:95.6F, HR:115/min, Ht:6 5in, Oxygen sat %:98% * 09/03/2024 Temp:96.1F, HR:113/min, Ht:6 5in, Oxygen sat %:97% * Examination: ???General Examination: ?GENERAL APPEARANCE:?Age appropriate, in no acute distress, well developed, well nourished.?HEAD:? atraumatic, normocephalic.?EYES:? sclera anicteric, extraocular movement full and smooth.?HEART:?regular rate and rhythm, S1, S2 normal.?LUNGS:?no wheezes, rales, rhonchi, diminished breath sounds throughout.?EXTREMITIES:?no clubbing, cyanosis, or edema.?NEUROLOGIC:?alert and oriented, gait normal.?PSYCH:? good eye contact, speech clear.? Assessment: * Assessment: 1.?Moderate persistent asthm a with (acute) exacerbation - J45.41 (Primary)???2.?Hypertensive chronic kidney disease with stage 1 through stage 4 chronic kidney disease, or unspecified chronic kidney disease - I12.9??? Plan: * Treatment: 2.?Hypertensive chronic kidn ey disease with stage 1 through stage 4 chronic kidney disease, or unspecified chronic kidney disease? Clinical Notes: Stable at present. Continue current medical therapy?? 3.?Others? Clinical Notes: This note was created with voice dictation recognition software and may contain errors of grammar and syntax. Also labs were reviewed with patient.?? * Procedures:?Peak flow:?Result?159.? * Procedure Codes:? * Preventive Medicine:? ??Cardiovascular Risk Assesment:?JOHN Risk Score:?Date of Calculation:?04/17/2024 ?10 Year risk of a CHD Event:?3.8 ??Counseling:?BP Management:?LIFESTYLE RECOMMENDATION:?Lifestyle education regarding hypertension ?PHYSICAL ACTIVITY RECOMMENDATION:?Recommendation to exercise ??Immunizations:?MMR?Last MMR was administered?06/05/2019 ?TdaP?Last Tdap was administered?09/08/2016 ?PPV 23 (pneumococcal)?Last PPV23 was administered?10/04/2010 ?Tetanus?Last Tetanus was administered?10/27/2006 ?Influenza?Last Influenza was administered?03/17/2022 ?COVID?Animal Nutrition Teacher?Pfizer ?First Dose?08/12/2020 ?Second Dose?09/03/2020 ?PCV 20 (Prevnar)?Last PCV 20 was administered?04/06/2023 ??Screenings:?Breast Cancer Screening:?Date of most recent screening:?06/22/2022 ?Colon cancer screening?Date of most recent screening:?09/20/2022 ?Colorectal screening:?Colonoscopy ?Provider recommendation:?3 years ?Osteoporosis Screening:?Date of most recent screening:?06/22/2022 * Follow Up:?1 Week (Reason: A sthma) * Images: Billing Information: * Visit Code:? 60491 Office Visit, Est Pt., Level 4. G2211 Complex E/M Visit. Modifiers: 25 * Procedure Codes:? Care Plan Details* * Sign off status: Completed true * Provider:?[facility] Date:?09/17 Generated for Isaak dewitt/Rut/eTransmitting on:?09/25/2024 05:02 PM EDT History and Physical Notes * Examination Category Sub-Category Detail Notes Category Not es General Examination GENERAL APPEARANCE: Age appr opriate, in no acute distress, well developed, well nourished HEAD: atraumatic, normocep halic EYES: sclera anicteric, ex traocular movement full and smooth HEART: regular rate and rhy thm, S1, S2 normal LUNGS: no wheezes, rales, r honchi, diminished breath sounds throughout NEUROLOGIC: alert and oriented, gait normal EXTREMITIES: no clubbing, cyanosi s, or edema PSYCH: good eye contact, sp eech clear
--- OUTSIDE RECORDS SUMMARY | 2024-09-25 17:03 | XMS_ITS ---
Author Organization [facility] Address [address] [phone] Care Team Providers Care Timekeeping Supervisor Name Role Phone [facility] Primary Care Provider [phone] Allergies Allergen (clinical drug ingredient) Drug/Non Drug [...] Date End Date Status predniSONE 10 MG 4 tablet with food o r milk Orally Once a day for 30 days Active Chlorthalidone 25 MG 0.5 Tablet Orally O nce a day for 90 days 01/02/2020 12/05/2024 Active Doxycycline Hyclate 100 MG 1 capsule Orally twice a day for 7 days 09/06/2024 09/13/2024 Active Ipratropium-Albuterol 0.5-2.5 (3) MG/3ML 3 mL as needed Inhalation every 4 hrs for 90 days Not-Taking Mucinex 600 MG 1 tablet as needed Orally every 12 hrs Not-Taking Combivent Respimat 20-100 MCG/ACT 1 puff as needed Inhalation every 6 hrs for 90 days Active Singulair 10 MG 1 tablet in the evening Orally Once a day for 90 days Active Nebulizer System All-In-One - as directed for 90 days 09/06/2024 Active Ramipril 10 MG 1 capsule Orally Onc e a day for 90 days Active Budesonide 0.5 MG/2ML 1 mL Inhalation Tw ice a day Active Claritin 10 MG 1 tablet Orally Once a day for 90 days 10/11/2024 Active NexIUM 20 MG 1 capsule Orally Onc e a day for 90 days Active Trelegy Ellipta 100-62.5-25 MCG/ACT 1 puff Inhalation Once a day for 90 days Active EpiPen 2-Leonardo 0.3 MG/0.3ML as directed Injection for 30 days 10/19/2022 Active Tezspire 210 MG/1.91ML as directed Subcutaneous Active Erythromycin 2 % 1 application Externally Twice a day for 30 days 01/19/2023 Active Vitamin D 125 MCG (5000 UT) 1 capsule Orally Once a day Active ProAir RespiClick 108 (90 Base) MCG/ACT 2 puff as needed every 6 hrs for 90 days Active Tylenol Extra Strength 500 MG 1 tablet as needed Orally every 6 hrs Active Social History Tobacco Use: Social History Observation Description Date Details (start date - stop date) Never Smoker NA - NA AUDIT-C (Standard) Question Answer Notes Did you have a drink containing alcohol in the p ast year? No Points 0 Interpretation Negative Tobacco Control (Standard) Question Answer Notes Tobacco use: Nonsmoker Vital Signs Blood pressure systolic 122 mm Hg 09/13/19 25 Blood pressure diastolic 70 mm Hg 025 Temperature 96.3 degrees Fahrenheit 09/13/19 25 Heart Rate 81 /min 09/12/2024 Weight 179 lbs 09/12/2024 BMI 29.78 kg/m2 09/12/2024 Height 65 in 09/12/2024 Oximetry 94 % 09/12/2024 Encounters Encounter Location Date Provider Diagnosis [facility] [address] [phone] 09/12/2024 [facility] Moderate persistent asthma with (acute) exacerbation J45.41 ; Lobar pneumonia, unspecified organism J18.1 and Hypertensive chronic kidney disease with stage 1 through stage 4 chronic kidney disease, or unspecified chronic kidney disease I12.9 Assessments Encounter Date Diagnosis (ICD Code) Assessment Notes Treatment Notes Treatment Clinical Notes Section Notes 09/12/2024 Moderate persistent asthma with (acute) exacerbation [...] decompensation she should not return to work. 09/12/2024 Lobar pneumonia, unspecified organism (ICD-10 - J18.1) Completing her antibiotics. Infectious component should resolve in 5 to 7 days. However the recovery component may give her a persistent cough which may complicate the clinical symptoms for the next several weeks. 09/12/2024 Hypertensive chronic kidney disease with stage 1 through stage 4 chronic kidney disease, or unspecified chronic kidney disease (ICD-10 - I12.9) Stable at present. Continue current medical therapy 09/12/2024 Other This note was created with voice dictation recognition software and may contain errors of grammar and syntax. Also labs were reviewed with patient. Plan Of Treatment Medication Medication Name Sig Start Date Stop Date Notes predniSONE 10 MG 4 tablet with food o r milk Orally Once a day for 30 days Next Appt Details Follow Up: 1 Week, Reason: A sta Provider Name:[facility] R[facility]y , 09/26/2024 01:00:00 PM, [address] [place] [address], [phone], Provider Name:[facility]iana R[facility]y , 12/12/2024 01:45:00 PM, [address] [place] [address], [phone], Provider Name:[facility] , 04/30/2025 09:00:00 AM, [address] [place] [address], [phone], Procedure Notes * Category Sub-Category Detail Notes Peak flow Result 150 Progress Notes * Lorenza BOJORQUEZ FDOB: [birth year] (69 yo F)Acc No.[id number]:09/12/2024 Progress Note Patient:Lorenza ROSS Provider:?[facility] MD :[id number]???Age:69 Y???Sex:Female D ate:09/12/2024 Address:[address] [place] [address] Subjective: * Chief Complaints: * ???1 week [...] No. ???Miscellaneous:?Exercise: yes, walking. 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 ???Household:?Household?Marital status:?Drug/Alcohol:?AUDIT-C (Standard)?Did you have a drink [...] Once a day , stop date 12/05/2024predniSONE 20 MG Tablet Take 3 tablets daily for 1 week Orally Once a day , stop date 09/13/2024Doxycycline Hyclate 100 MG Capsule 1 capsule Orally twice a day , stop date 09/13/2024Taking Erythromycin 2 % Gel 1 application Externally [...] date 10/11/2024Taking EpiPen 2-Leonardo 0.3 MG/0.3ML Solution Auto- injector [...] a day , stop date 12/05/2024Taking predniSONE 20 MG Tablet Take 3 tablets daily for 1 week Orally Once a day , stop date 09/13/2024Taking Doxycycline Hyclate 100 MG Capsule 1 capsule Orally twice a day , stop date 09/13/2024Not-Taking/PRNMucinex 600 MG Tablet Extended Release 12 Hour [...] - Side EffectsBlack Pepper-Turmericno[Allergies Verified] Objective: * Vitals:?Temp:96.3F, HR:81/mi n, BP:Sitting Right Arm: 122/70mm Hg, Wt:179lbs, BMI:29.78Index, Ht:65in, Oxygen sat %:94%. Past Vitals:* 09/06/2024 Temp:95.6F, HR:115/min, Ht:6 5in, Oxygen sat %:98% * 09/03/2024 Temp:96.1F, HR:113/min, Ht:6 5in, Oxygen sat %:97% * 08/27/2024 Temp:96.8F, HR:75/min, Wt:18 7lbs, BMI:31.12Index, Ht:65in, Oxygen sat %:97% * ???Past Orders: Lab:Comp. Metabolic Panel (1 4)-[id number] * Collection Date 08/13/2024 04/17/2024 01/19/2024 Collection Time 03:28 PM 10:19 AM 12:04 PM 10:25 AM Order Date 08/13/2024 04/17/2024 01/19/2024 10/17/2023 Glucose 100?H (Ref Range: 70-99 mg/dL) 86 (Ref Range: 70-99 mg/dL) 80 (Ref Range: 70-99 mg/dL) 91 (Ref Range: 70-99 mg/dL) BUN 15 (Ref Range: 8-27 mg/dL) 18 (Ref Range: 8-27 mg/dL) 23 (Ref Range: 8-27 mg/dL) 19 (Ref Range: 8-27 mg/dL) Creatinine 0.82 (Ref Range: 0.57-1.00 mg/dL) 0.95 (Ref Range: 0.57-1.00 mg/dL) 0.91 (Ref Range: 0.57-1.00 mg/dL) 0.90 (Ref Range: 0.57-1.00 mg/dL) BUN/Creatinine Ratio 18 (Ref Range: 12-28) 19 (Ref Range: 12-28) 25 (Ref Range: 12-28) 21 (Ref Range: 12-28) Sodium 143 (Ref Range: 134-144 mmol/L) 141 (Ref Range: 134-144 mmol/L) 138 (Ref Range: 134-144 mmol/L) 142 (Ref Range: 134-144 mmol/L) Potassium 4.4 (Ref Range: 3.5-5.2 mmol/L) 4.1 (Ref Range: 3.5-5.2 mmol/L) 4.6 (Ref Range: 3.5-5.2 mmol/L) 3.9 (Ref Range: 3.5-5.2 mmol/L) Chloride 103 (Ref Range: 96-106 mmol/L) 98 (Ref Range: 96-106 mmol/L) 97 (Ref Range: 96-106 mmol/L) 102 (Ref Range: 96-106 mmol/L) Carbon Dioxide, Total 19?L (Ref Range: 20-29 mmol/L) 25 (Ref Range: 20-29 mmol/L) 24 (Ref Range: 20-29 mmol/L) 24 (Ref Range: 20-29 mmol/L) Calcium 9.7 (Ref Range: 8.7-10.3 mg/dL) 9.7 (Ref Range: 8.7-10.3 mg/dL) 10.0 (Ref Range: 8.7-10.3 mg/dL) 9.7 (Ref Range: 8.7-10.3 mg/dL) Protein, Total 6.5 (Ref Range: 6.0-8.5 g/dL) 6.8 (Ref Range: 6.0-8.5 g/dL) 6.9 (Ref Range: 6.0-8.5 g/dL) 6.8 (Ref Range: 6.0-8.5 g/dL) Albumin 4.3 (Ref Range: 3.9-4.9 g/dL) 4.2 (Ref Range: 3.9-4.9 g/dL) 4.4 (Ref Range: 3.9-4.9 g/dL) 4.4 (Ref Range: 3.9-4.9 g/dL) Globulin, Total 2.2 (Ref Range: 1.5-4.5 g/dL) 2.6 (Ref Range: 1.5-4.5 g/dL) 2.5 (Ref Range: 1.5-4.5 g/dL) 2.4 (Ref Range: 1.5-4.5 g/dL) A/G Ratio NR NR NR 1.8 (Ref Range: 1.2-2.2) Bilirubin, Total <0.2 (Ref Range: 0.0-1.2 mg/dL) 0.5 (Ref Range: 0.0-1.2 mg/dL) 0.6 (Ref Range: 0.0-1.2 mg/dL) 0.3 (Ref Range: 0.0-1.2 mg/dL) Alkaline Phosphatase 92 (Ref Range: 44-121 IU/L) 91 (Ref Range: 44-121 IU/L) 97 (Ref Range: 44-121 IU/L) 108 (Ref Range: 44-121 IU/L) AST (SGOT) 24 (Ref Range: 0-40 IU/L) 15 (Ref Range: 0-40 IU/L) 17 (Ref Range: 0-40 IU/L) 15 (Ref Range: 0-40 IU/L) ALT (SGPT) 18 (Ref Range: 0-32 IU/L) 16 (Ref Range: 0-32 IU/L) 18 (Ref Range: 0-32 IU/L) 15 (Ref Range: 0-32 IU/L) eGFR 78 (Ref Range: >59 mL/min/1.73) 66 (Ref Range: >59 mL/min/1.73) 70 (Ref Range: >59 mL/min/1.73) 71 (Ref Range: >59 mL/min/1.73) * Lab:Urinalysis, Complete-003 [id number] * Collection Date 08/13/2024 04/17/2024 01/19/2024 Collection Time 03:28 PM 10:19 AM 12:04 PM Order Date 08/13/2024 04/17/2024 01/19/2024 Specific Center [place] 1.009 (Ref Range: 1.005-1.030) 1.011 (Ref Range: 1.005-1.030) 1.011 (Ref Range: 1.005-1.030) pH 7.0 (Ref Range: 5.0-7.5) 7.5 (Ref Range: 5.0-7.5) 7.0 (Ref Range: 5.0-7.5) Urine-Color Yellow (Ref Range: Yellow) Yellow (Ref Range: Yellow) Yellow (Ref Range: Yellow) Appearance Clear (Ref Range: Clear) Clear (Ref Range: Clear) Clear (Ref Range: Clear) WBC Esterase 1+?A (Ref Range: Negative) 3+?A (Ref Range: Negative) 2+?A (Ref Range: Negative) Protein Negative (Ref Range: Negative/Trace) Negative (Ref Range: Negative/Trace) Negative (Ref Range: Negative/Trace) Glucose Negative (Ref Range: Negative) Negative (Ref Range: Negative) Negative (Ref Range: Negative) Ketones Negative (Ref Range: Negative) Negative (Ref Range: Negative) Negative (Ref Range: Negative) Occult Blood Negative (Ref Range: Negative) Negative (Ref Range: Negative) Negative (Ref Range: Negative) Bilirubin Negative (Ref Range: Negative) Negative (Ref Range: Negative) Negative (Ref Range: Negative) Urobilinogen,Semi-Qn 0.2 (Ref Range: 0.2-1.0 mg/dL) 0.2 (Ref Range: 0.2-1.0 mg/dL) 0.2 (Ref Range: 0.2-1.0 mg/dL) Nitrite, Urine Negative (Ref Range: Negative) Negative (Ref Range: Negative) Negative (Ref Range: Negative) Microscopic Examination See below: See below: See below: WBC 0-5 (Ref Range: 0 - 5 /hpf) 0-5 (Ref Range: 0 - 5 /hpf) 0-5 (Ref Range: 0 - 5 /hpf) RBC None seen (Ref Range: 0 - 2 /hpf) None seen (Ref Range: 0 - 2 /hpf) None seen (Ref Range: 0 - 2 /hpf) Epithelial Cells (non renal) 0-10 (Ref Range: 0 - 10 /hpf) 0-10 (Ref Range: 0 - 10 /hpf) 0-10 (Ref Range: 0 - 10 /hpf) Casts None seen (Ref Range: None seen /lpf) None seen (Ref Range: None seen /lpf) None seen (Ref Range: None seen /lpf) Bacteria None seen (Ref Range: None seen/Few) Few (Ref Range: None seen/Few) None seen (Ref Range: None seen/Few) * Lab:Albumin/Creatinine Ratio ,Urine-[id number] * Collection Date 08/13/2024 04/17/2024 01/19/2024 Collection Time 03:28 PM 10:19 AM 12:04 PM Order Date 08/13/2024 04/17/2024 01/19/2024 Creatinine, Urine 37.0 (Ref Range: Not Estab. mg/dL) 58.8 (Ref Range: Not Estab. mg/dL) 47.5 (Ref Range: Not Estab. mg/dL) Albumin, Urine <3.0 (Ref Range: Not Estab. ug/mL) <3.0 (Ref Range: Not Estab. ug/mL) <3.0 (Ref Range: Not Estab. ug/mL) Alb/Creat Ratio <8 (Ref Range: 0-29 mg/g creat) <5 (Ref Range: 0-29 mg/g creat) <6 (Ref Range: 0-29 mg/g creat) * Lab:Respiratory Panel w/ MEGHA [id number] * Collection Date 09/03/2024 11/30/2023 Collection Time 10:30 AM 05:20 PM Order Date 09/03/2024 11/30/2023 Adenovirus Not Detected (Ref Range: Not Detected) Not Detected (Ref Range: Not Detected) Coronavirus HKU1 Not Detected (Ref Range: Not Detected) Not Detected (Ref Range: Not Detected) Coronavirus NL63 Not Detected (Ref Range: Not Detected) Not Detected (Ref Range: Not Detected) Coronavirus 229E Not Detected (Ref Range: Not Detected) Not Detected (Ref Range: Not Detected) Coronavirus OC43 Not Detected (Ref Range: Not Detected) Not Detected (Ref Range: Not Detected) SARS-CoV-2 Not Detected (Ref Range: Not Detected) Detected?A (Ref Range: Not Detected) Human Metapneumovirus Detected?A (Ref Range: Not Detected) Not Detected (Ref Range: Not Detected) Human Rhinovirus/Enterovirus Not Detecte d (Ref Range: Not Detected) Not Detected (Ref Range: Not Detected) Influenza A Not Detected (Ref Range: Not Detected) Not Detected (Ref Range: Not Detected) Influenza A/H1 TNP TNP Influenza A/H1-2009 TNP TNP Influenza A/H3 TNP TNP Influenza B Not Detected (Ref Range: Not Detected) Not Detected (Ref Range: Not Detected) Parainfluenza 1 Not Detected (Ref Range: Not Detected) Not Detected (Ref Range: Not Detected) Parainfluenza 2 Not Detected (Ref Range: Not Detected) Not Detected (Ref Range: Not Detected) Parainfluenza 3 Not Detected (Ref Range: Not Detected) Not Detected (Ref Range: Not Detected) Parainfluenza 4 Not Detected (Ref Range: Not Detected) Not Detected (Ref Range: Not Detected) Respiratory Syncytial Virus Not Detected (Ref Range: Not Detected) Not Detected (Ref Range: Not Detected) Bordetella parapertussis Not Detected (Ref Range: Not Detected) Not Detected (Ref Range: Not Detected) Bordetella pertussis Not Detected (Ref Range: Not Detected) Not Detected (Ref Range: Not Detected) Chlamydophila pneumoniae Not Detected (Ref Range: Not Detected) Not Detected (Ref Range: Not Detected) Mycoplasma pneumoniae Not Detected (Ref Range: Not Detected) Not Detected (Ref Range: Not Detected) * Examination: ???General Examination: ?GENERAL APPEARANCE:?Age appropriate, in no acute distress, well developed, well nourished.?HEAD:? atraumatic, normocephalic.?EYES:? sclera anicteric, extraocular movement full and smooth.?HEART:?regular rate and rhythm, S1, S2 normal.?LUNGS:?scattered wheezes throughout.?EXTREMITIES:?no clubbing, cyanosis, or edema.?NEUROLOGIC:?alert and oriented, gait normal.?PSYCH:? good eye contact, speech clear.? Assessment: * Assessment: 1.?Moderate persistent asthm a with (acute) exacerbation - J45.41 (Primary)???2.?Lobar pneumonia, unspecified organism - J18.1???3.?Hypertensive chronic kidney disease with stage 1 through stage 4 chronic kidney disease, or unspecified chronic kidney disease - I12.9??? Plan: * Treatment: 2.?Lobar pneumonia, unspecif ied organism? Clinical Notes: Completing her antibiotics. Infectious component should resolve in 5 to 7 days. However the recovery component may give her a persistent cough which may complicate the clinical symptoms for the next several weeks.?? 3.?Hypertensive chronic kidn ey disease with stage 1 through stage 4 chronic kidney disease, or unspecified chronic kidney disease? Clinical Notes: Stable at present. Continue current medical therapy?? 4.?Others? Clinical Notes: This note was created with voice dictation recognition software and may contain errors of grammar and syntax. Also labs were reviewed with patient.?? * Procedures:?Peak flow:?Result?150.? * Procedure Codes:? * Preventive Medicine:? ??Cardiovascular Risk Assesment:?JOHN Risk Score:?Date of Calculation:?04/17/2024 ?10 Year risk of a CHD Event:?3.8 ??Counseling:?BP Management:?LIFESTYLE RECOMMENDATION:?Lifestyle education regarding hypertension ?PHYSICAL ACTIVITY RECOMMENDATION:?Recommendation to exercise ??Immunizations:?MMR?Last MMR was administered?06/05/2019 ?TdaP?Last Tdap was administered?09/08/2016 ?PPV 23 (pneumococcal)?Last PPV23 was administered?10/04/2010 ?Tetanus?Last Tetanus was administered?10/27/2006 ?Influenza?Last Influenza was administered?03/17/2022 ?COVID?Machine Clothing Man?Pfizer ?First Dose?08/12/2020 ?Second Dose?09/03/2020 ?PCV 20 (Prevnar)?Last PCV 20 was administered?04/06/2023 ??Screenings:?Breast Cancer Screening:?Date of most recent screening:?06/22/2022 ?Colon cancer screening?Date of most recent screening:?09/20/2022 ?Colorectal screening:?Colonoscopy ?Provider recommendation:?3 years ?Osteoporosis Screening:?Date of most recent screening:?06/22/2022 * Follow Up:?1 Week (Reason: A sthma) * Images: Billing Information: * Visit Code:? 60968 Office Visit, Est Pt., Level 4. G2211 Complex E/M Visit. Modifiers: 25 * Procedure Codes:? Care Plan Details* * Sign off status: Completed true * Provider:?[facility]iana R[facility] MD Date:?09/12 Generated for Chulai esdras/Rut/eTransmitting on:?09/25/2024 05:03 PM EDT History and Physical [...] rhy thm, S1, S2 normal LUNGS: scattered wheezes th roughout NEUROLOGIC: alert and oriented, gait normal EXTREMITIES: no clubbing, cyanosi s, or edema PSYCH: good eye contact, sp eech clear
== END 2024-09-25 14:51 | disposition home or self-care (01) ==
LOC: HO.HPS 14:13
PROVIDERS: PCP Internal Medicine; Visit Provider Hospitalist
DX: J45.50 Severe persistent asthma, uncomplicated (principal); I26.99 Other pulmonary embolism without acute cor pulmonale; R06.02 Shortness of breath; R91.8 Other nonspecific abnormal finding of lung field; J38.3 Other diseases of vocal cords; G47.33 Obstructive sleep apnea (adult) (pediatric); Z99.89 Dependence on other enabling machines and devices
CPT/HCPCS: 99214; G2211

== ENCOUNTER → 2024-09-25 14:12 | Outpatient (BNVA) | payer MEDICARE, OTHER, SELFPAY | PROVIDERS: PCP Internal Medicine; Visit Provider Hospitalist | DX: J45.50 Severe persistent asthma, uncomplicated (principal); J38.3 Other diseases of vocal cords; J18.9 Pneumonia, unspecified organism; I26.99 Other pulmonary embolism without acute cor pulmonale; G47.33 Obstructive sleep apnea (adult) (pediatric); R06.02 Shortness of breath; R91.8 Other nonspecific abnormal finding of lung field; Z79.52 Long term (current) use of systemic steroids; Z99.89 Dependence on other enabling machines and devices | CPT/HCPCS: 99212 ==

== ENCOUNTER 2024-11-26 08:54 | Outpatient (AMB) | payer MEDICARE, OTHER, SELFPAY ==
[2024-11-26 08:58] VITALS: BP 120/60; PULSE 114; O2SAT 95; BMI 26.5
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
--- OUTSIDE RECORDS SUMMARY | 2024-11-26 09:28 | XMS_ITS | Patient Health Record ---
Author Organization [facility] Address [address] [place] [phone] Care Team Providers Care Nailer Hand Name Role Phone [facility] Primary Care Provider Rachel Sanchez Unavailable [phone] Allergies Allergen (clinical drug ingredient) Drug/Non Drug [...] Results Component Value Reference Range Notes Urinalysis, Complete-[id number] Reviewed date:04/22/2024 07:39:03 AM Interpretation: Performing Lab:[facility] [place], [address], [place], Phone - [phone], Director - Steve Notes/Report: Specific [place] 1.011 1.005-1.030 pH 7.5 5.0-7.5 Urine-Color Yellow [...] Bacteria Few None seen/Few CBC With Differential/Platel et-[id number] Reviewed date:04/22/2024 07:39:03 AM Interpretation: Performing [facility] [place], [address] [place] [address], Phone - [phone], Director - Steve Notes/Report: WBC 12.0 3.4-10.8 [...] Grans (Abs) 0.1 0.0-0.1 x10E3/uL Vitamin D, 49-Znsdfdr-[id number] Reviewed date:04/22/2024 07:39:03 AM Interpretation: Performing Lab:[facility] [place], [address] [place] [address], [place], Phone - [phone], Director - Steve Notes/Report: Vitamin D, 25-Hydroxy 23.6 30.0-100.0 ng/mL Vitamin D deficiency has been defined by the [place] [employer] and an Endocrine Society practice guideline as a level of serum 25-OH vitamin D less than 20 ng/mL (1,2). The Endocrine Society went on to further define vitamin D insufficiency as a level between 21 and 29 ng/mL (2). 1. IOM ([place] of [employer]). 2010. Dietary reference intakes for calcium and D. [place]: The National Academies Press. 2. Daniel MF, Peace CAMACHO, Vamsi LOPEZ, et al. Evaluation, treatment, and prevention of vitamin D deficiency: an Endocrine Society clinical practice guideline. JCEM. 2010; 96(4):8901-30. [id number] Reviewed date:04/22/2024 07:39:03 AM Interpretation: Performing Lab:[facility] [place], [address] [facility], [place], Phone - [phone], Director - Steve Notes/Report: D-Dimer 0.35 0.00-0.49 mg/L FEU According to the assay hat finisher's published package insert, a normal (<0.50 mg/L FEU) D-dimer result in conjunction with a non-high clinical probability assessment, excludes deep vein thrombosis (DVT) and pulmonary embolism (PE) with high sensitivity. . D-dimer values increase with age and this can make VTE exclusion of an older population difficult. To address this, the [place] [employer], based on best available [...] year old 0.80 mg/L FEU. Albumin/Creatinine Ratio,Uri ne-[id number] Reviewed date:04/22/2024 07:39:03 AM Interpretation: Performing Lab:[facility] [place], [address] [facility], [place], Phone - [phone], Director - Steve Notes/Report: Creatinine, Urine 58.8 Not Estab. mg/dL Albumin, Urine <3.0 Not Estab. ug/mL Alb/Creat Ratio <5 0-29 mg/g creat Normal: 0 - 29 Moderately increased: 30 - 300 Severely increased: >300 Comp. Metabolic Panel (14)-3 56843 Reviewed date:04/22/2024 07:39:03 AM Interpretation: Performing Lab:[facility], [address] [place] [address], Phone - [phone], Director - Steve Notes/Report: Glucose 86 70-99 [...] IU/L ALT (SGPT) 16 0-32 IU/L LP+Non-HDL Cholesterol-41438 5 Reviewed date:04/22/2024 07:39:03 AM Interpretation: Performing Lab:[facility] [place], [address] [place] [address], Phone - [phone], Director - Steve Notes/Report: Cholesterol, Total 215 100-199 mg/dL Triglycerides 146 0-149 mg/dL HDL Cholesterol 71 >39 mg/dL VLDL Cholesterol Manuel 25 5-40 mg/dL LDL Chol Calc (NIH) 119 0-99 mg/dL Non-HDL Cholesterol 144 0-129 mg/dL HCV Antibody-[id number] Reviewed date:04/22/2024 07:39:03 AM Interpretation: Performing Lab:[facility] [place] [address] [place] [address], Phone - [phone], Director - Steve Notes/Report: Hep C Virus [...] (Negative) Lay letter mailed to patient WSN: [id number] Ordering Physician: [facility] Dictated By: Stan VERA, [place] Respiratory Panel w/ SARS-Co [id number] Reviewed date:09/04/2024 12:48:02 PM Interpretation: Performing Lab:[facility], [address] [place] [address], [place], Phone - [phone], Director - Steve Notes/Report: Clinical Information:SRC: Adenovirus [...] may represent atelectasis, infiltrate, or scar. WSN: [id number] Ordering Physician: [facility] Dictated By: Michelle Child MD. Metabolic Panel (14)-3 Reviewed date:08/15/2024 05:35:31 PM Interpretation: Performing Lab:[facility] [place], [address] [facility], Phone - [phone], Director - Steve Notes/Report: Glucose 100 70-99 mg/dL BUN 15 [...] IU/L ALT (SGPT) 18 0-32 IU/L Albumin/Creatinine Ratio,Uri ne-[id number] Reviewed date:08/15/2024 05:35:31 PM Interpretation: Performing Lab:[facility] [place], [address] [facility], [place], Phone - [phone], Director - MDJodry Notes/Report: Creatinine, Urine 37.0 Not Estab. mg/dL Albumin, Urine <3.0 Not Estab. ug/mL Alb/Creat Ratio <8 0-29 mg/g creat Normal: 0 - 29 Moderately increased: 30 - 300 Severely increased: >300 Urinalysis, Complete-[id number] Reviewed date:08/15/2024 05:35:31 PM Interpretation: Performing Lab:[facility] [place], [address] [facility], Phone - [phone], Director - Steve Notes/Report: Specific [place] 1.009 1.005-1.030 pH 7.0 5.0-7.5 Urine-Color Yellow [...] seen /lpf Bacteria None seen None seen/Few Chest 2 Views Frontal and La t [...] There is no acute cardiopulmonary disease. WSN: [id number] Ordering Physician: [facility] Dictated By: Mateusz VERA , Michelle Berman [id number] Reviewed date:04/10/2024 06:14:28 PM Interpretation: Performing Lab:[facility] [place], [address] [facility], Phone - [phone], Director - Steve Notes/Report: D-Dimer 0.42 0.00-0.49 mg/L FEU According to the assay hat finisher's published package insert, a normal (<0.50 mg/L FEU) D-dimer result in conjunction with a non-high clinical probability assessment, excludes deep vein thrombosis (DVT) and pulmonary embolism (PE) with high sensitivity. . D-dimer values increase with age and this can make VTE exclusion of an older population difficult. To address this, the [place] [employer], based on best available [...] an 82 year old 0.80 mg/L FEU. PDF Report Reviewed date:12/02/2023 09:25:19 AM Interpretation: Performing Lab:[facility] [place], [address] [place] [address], Phone - [phone], Director - Steve Notes/Report: Clinical Information:SRC: Respiratory Panel w/ SARS-Co [id number] Reviewed date:12/02/2023 09:25:19 AM Interpretation: Performing Lab:[facility] [place], [address] [place] [address], [place], Phone - [phone], Director - Steve Notes/Report: Clinical Information:SRC: Adenovirus [...] Detected Mycoplasma pneumoniae Not Detected Not Detected Urinalysis, Complete-[id number] Reviewed date:01/30/2024 06:50:01 PM Interpretation: Performing Lab:[facility] [place], [address] [place] [address], [place], Phone - [phone], Director - Steve Notes/Report: Specific [place] 1.011 1.005-1.030 pH 7.0 5.0-7.5 Urine-Color Yellow [...] Bacteria None seen None seen/Few Vitamin D, 81-[id number] Reviewed date:01/30/2024 06:50:01 PM Interpretation: Performing Lab:[facility] [place], [address] [place] [address], [place], Phone - [phone], Director - Steve Notes/Report: Vitamin D, 25-Hydroxy 26.2 30.0-100.0 ng/mL Vitamin D deficiency has been defined by the [place] [employer] and an Endocrine Society practice guideline as a level of serum 25-OH vitamin D less than 20 ng/mL (1,2). The Endocrine Society went on to further define vitamin D insufficiency as a level between 21 and 29 ng/mL (2). 1. IOM ([place]). 2010. Dietary reference intakes for calcium and D. [place]: The National Academies Press. 2. Daniel MF, [place], Vamsi LOPEZ, et al. Evaluation, treatment, and prevention of vitamin D deficiency: an Endocrine Society clinical practice guideline. JCEM. 2010; 96(7):1911-30. [id number] Reviewed date:01/30/2024 06:50:01 PM Interpretation: Performing Lab:[facility] [place], [address] [place] [address], [place], Phone - [phone], Director - Steve Notes/Report: D-Dimer 0.46 0.00-0.49 mg/L FEU According to the assay hat finisher's published package insert, a normal (<0.50 mg/L FEU) D-dimer result in conjunction with a non-high clinical probability assessment, excludes deep vein thrombosis (DVT) and pulmonary embolism (PE) with high sensitivity. . D-dimer values increase with age and this can make VTE exclusion of an older population difficult. To address this, the [place] [employer], based on best available [...] year old 0.80 mg/L FEU. Albumin/Creatinine Ratio,Uri ne-[id number] Reviewed date:01/30/2024 06:50:01 PM Interpretation: Performing Lab:[facility] [place], [address] [facility], [place], Phone - [phone], Director - [facility] Notes/Report: Creatinine, Urine 47.5 Not Estab. mg/dL Albumin, Urine <3.0 Not Estab. ug/mL Alb/Creat Ratio <6 0-29 mg/g creat Normal: 0 - 29 Moderately increased: 30 - 300 Severely increased: >300 Comp. Metabolic Panel (14)-3 Reviewed date:01/30/2024 06:50:01 PM Interpretation: Performing Lab:[facility] [place], [address] [facility], [place], Phone - [phone], Director - MDeleni Notes/Report: Glucose 80 70-99 mg/dL BUN 23 [...] Report Reviewed date:01/30/2024 06:50:01 PM Interpretation: Performing Lab:[facility] [place], [address], [place], Phone - [phone], Director - Steve Notes/Report: Reason For Referral No Information Medications Medication SIG (Take, Route, Frequency, Duration) Notes Start Date End Date Status Chlorthalidone 25 MG 0.5 Tablet Orally O nce a day 01/02/2020 Active Vitamin D 125 MCG (5000 UT) 1 capsule Orally Once a day Active Tylenol Extra Strength 500 MG 1 tablet as needed Orally every 6 hrs Active Mucinex 600 MG 1 tablet as needed Orally every 12 hrs Not-Taking Ipratropium-Albuterol 0.5-2.5 (3) MG/3ML 3 mL Inhalation every 4 hrs for 90 days As needed Active Erythromycin 2 % 1 application Externally Twice a day for 30 days 01/19/2023 Active ProAir RespiClick 108 (90 Base) MCG/ACT 2 puff as needed every 6 hrs for 90 days Active Ramipril 10 MG 1 capsule Orally Onc e a day for 90 days Not-Taking Singulair 10 MG 1 tablet in the evening Orally Once a day for 90 days Active EpiPen 2-Leonardo 0.3 MG/0.3ML as directed Injection for 90 days 10/19/2022 Active Clarinex 5 MG 1 tablet Orally Once a day for 90 days 10/17/2024 10/12/2025 Active Nebulizer System All-In-One - as directed for 90 days 09/06/2024 Active NexIUM 20 MG 1 capsule Orally Onc e a day for 90 days Active predniSONE 10 MG 1 tablet with food o r milk Orally 4 times a day for 30 days Active Tezspire 210 MG/1.91ML as directed Subcutaneous Active Trelegy Ellipta 100-62.5-25 MCG/ACT 1 puff Inhalation Once a day Active Famotidine 20 MG Oral for 30 Days Active Budesonide 1 MG/2ML 1 mL Inhalation Twic e a day for 90 days Active Albuterol Sulfate (2.5 MG/3ML) 0.083% Inhalation for 25 Days Act diya Combivent Respimat 20-100 MCG/ACT 1 puff Inhalation every 6 hrs for 90 days As needed Active Budesonide 0.5 MG/2ML Inhalation for 90 Days Active Fluorouracil 5 % 1 application Externally Twice a day Active Immunizations Vaccine Route Administration Date Status Comme nts *Tjcxvrlif-Wzsb-LC IM Intramuscular 03/17/2022 Administere d *Influenza-Fluzone Unknown 04/04/2024 Administered *PREVNAR 20 IM Intramuscular 04/06/2023 Administered *Tdap Unknown 09/08/2016 Administered Date estimated Done at [facility] [id number] Vaccine Unknown 08/12/2020 Administered RZMIZ-71-Rqejja Vaccine Unknown 09/03/2020 Administered Influenza Unknown 04/05/2016 [...] preservative free Unknown 10/27/2006 Administered Social History AUDIT-C (Standard) Question Answer Notes Did you have a drink containing alcohol in the p ast year? No Points 0 Interpretation Negative Problems Problem Type SNOMED Code ICD Code Onset Dates Problem Status W/U Status Risk Notes Problem Thrombophilia (141934760) Other thrombophilia (D68.69) Active confirmed Problem Eosinophilia (487729942) Eosinophilia (D72.1) Active confirmed Problem Vitamin D deficiency (72329381) Vitamin D deficiency, unspecified (E55.9) Active confirmed Problem Lactose intolerance (741980544) Lactose intolerance, unspecified (E73.9) Active confirmed Problem Mixed hyperlipidemia (217773124) Mixed hyperlipidemia (E78.2) Active confirmed Problem Posttraumatic stress disorder (72481413) Post-traumatic stress disorder, chronic (F43.12) Active confirmed Problem Obstructive sleep apnea syndrome (00112951) Obstructive sleep apnea (adult) (pediatric) (G47.33) Active confirmed Problem Brachial plexus disorder (2582393) Brachial plexus disorders (G54.0) Active confirmed Problem Carpal tunnel syndrome (75406820) Carpal tunnel syndrome, right upper limb (G56.01) Active confirmed Problem Nuclear senile cataract (130423837) Age-related nuclear cataract, bilateral (H25.13) Active confirmed Problem Chronic kidney disease due to hypertension (905950525374510) Hypertensive chronic kidney disease with stage 1 through stage 4 chronic kidney disease, or unspecified chronic kidney disease (I12.9) Active confirmed Problem Uncomplicated moderate persistent asthma (876182444) Moderate persistent asthma, uncomplicated (J45.40) Active confirmed Problem Uncomplicated severe persistent asthma (932018982) Severe persistent asthma, uncomplicated (J45.50) Active confirmed Problem Gastro-esophageal reflux disease without esophagitis (075791447) Gastro-esophageal reflux disease without esophagitis (K21.9) Active confirmed Problem Lumbosacral spondylosis without myelopathy (58086347) Other spondylosis with radiculopathy, lumbar region (M47.26) Active confirmed Problem Displacement of lumbar intervertebral disc without myelopathy (42200927) Other intervertebral disc displacement, lumbar region (M51.26) Active confirmed Problem Chronic kidney disease stage 2 (799793683) Chronic kidney disease, stage 2 (mild) (N18.2) Active confirmed Problem History of pulmonary embolus (786529929) Personal history of pulmonary embolism (Z86.711) Active confirmed Problem Allergy to penicillin (29470764) Allergy status to penicillin (Z88.0) Active confirmed Problem History of polyp of colon (situation) (760088747) Personal history of colonic polyps (Z86.010) Active confirmed Problem Spinal stenosis of lumbar region (28308101) Spinal stenosis, lumbar region without neurogenic claudication (M48.061) Active confirmed Problem Gastroesophageal reflux disease with esophagitis (disorder) (032641613) Gastro-esophageal reflux disease with esophagitis, without bleeding (K21.00) Active confirmed Problem Body mass index 30.00 to 34.99 (153211093670459) Body mass index [BMI] 31.0-31.9, adult (Z68.31) Active confirmed Problem Exacerbation of moderate persistent asthma (disorder) (948231749) Moderate persistent asthma with (acute) exacerbation (J45.41) Inactive confirmed Problem Palpitations (04974058) Palpitations (R00.2) Inactive confirmed Problem Oropharyngeal dysphagia (77490170) Dysphagia, pharyngeal phase (R13.13) Inactive confirmed Problem Candidiasis of mouth (41645046) Candidal stomatitis (B37.0) Problem resolved confirmed Problem Benign paroxysmal positional vertigo (210684705) Benign paroxysmal vertigo, left ear (H81.12) Problem resolved confirmed Problem Aural vertigo, left ear (H81.312) Problem resolved confirmed Problem influenza due to influenza a virus with upper respiratory signs (disorder) (060396289566197) Influenza due to identified novel influenza A virus with other respiratory manifestations (J09.X2) Problem resolved confirmed Problem Acute severe exacerbation of severe persistent asthma (818319641) Severe persistent asthma with (acute) exacerbation (J45.51) Problem resolved confirmed Problem Skin ulcer of calf (829690598) 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) Problem resolved confirmed Problem Derangement of posterior horn of medial meniscus (9458046) Derangement of posterior horn of medial meniscus due to old tear or injury, left knee (M23.222) Problem resolved confirmed Problem Nontraumatic rotator cuff tear (disorder) (229253642) Incomplete rotator cuff tear or rupture of right shoulder, not specified as traumatic (M75.111) Problem resolved confirmed Problem Full thickness rotator cuff tear (296702053) Complete rotator cuff tear or rupture of right shoulder, not specified as traumatic (M75.121) Problem resolved confirmed Problem Concussion with no loss of consciousness (42337309) Concussion without loss of consciousness, initial encounter (S06.0X0A) Problem resolved confirmed Problem Strain of muscle of right shoulder (80678713311065557) Strain of muscle(s) and tendon(s) of the rotator cuff of right shoulder, initial encounter (S46.011A) Problem resolved confirmed Problem Single subsegmental pulmonary embolism without acute cor pulmonale (I26.93) Problem resolved confirmed Problem COVID19 VENANCIO-Viru s Identified (U07.1) Problem resolved confirmed Vital Signs Heart Rate 84 /min 11/13/2024 Temperature 97.6 degrees Fahrenheit 11/13/2024 Blood pressure diastolic 64 mm Hg 11/13/2024 Oximetry 97 % 11/13/2024 Height 65 in 11/13/2024 Blood pressure systolic 136 mm Hg 11/13/2024 Weight 173 lbs 10/30/2024 BMI 28.79 kg/m2 10/30/2024 Encounters Encounter Location Date Provider Diagnosis [facility] [address] [place], [place] [id number] 11/29/2023 [facility] [address] [place] [address] [id number] 12/02/2023 [facility] [address] [place], [place] [id number] 01/17/2024 [facility] [address] [place] [id number] 04/06/2024 [facility] [address] [place] [address] [id number] 04/25/2024 [facility] [address] [place] [id number] 05/11/2024 [facility] [address] [place] [address] [id number] 09/02/2024 [facility] Moderate persistent asthma with (acute) exacerbation J45.41 [facility] [address] [place] [address] [id number] 09/03/2024 [facility] [address] [place] [address] [id number] 09/03/2024 [facility] [address] [place] [address] [id number] 09/03/2024 [facility] [address] [place] [address] [id number] 09/04/2024 [facility] [address] [place] [address] [id number] 09/27/2024 [facility] [address] [place] [id number] 10/03/2024 [facility] [address] [place] [address] [id number] 11/29/2023 [facility] [address] [place] [address] [id number] 02/23/2024 [facility] [address] [place] [address] [id number] 02/23/2024 [facility] [address] [place] [address] [id number] 05/18/2024 [facility] [address] [place], [place] [id number] 05/29/2024 [facility] [address] [place], [place] [id number] 06/01/2024 [facility] [address] [place], [place] [id number] 06/11/2024 [facility] [address] [place], [place] [id number] 07/03/2024 [facility] [address] [place], [place] [id number] 07/03/2024 [facility] [address] [place], [place] [id number] 08/24/2024 [facility] [address] [place], [place] [id number] 08/24/2024 [facility] [address] [place], [place] [id number] 08/24/2024 [facility] [address] [place], [place] [id number] 08/27/2024 [facility] [address] [place], [place] [id number] 09/28/2024 [facility] [address] [place] [id number] 09/28/2024 [facility] [address] [place], [place] [id number] 10/02/2024 [facility] [address] [place], [place] [id number] 10/02/2024 [facility] [address] [place], [place] [id number] 10/30/2024 [facility] [address] [place], [place] [id number] 10/30/2024 [facility] [address] [place], [place] [id number] 04/09/2024 [facility] Personal history of pulmonary embolism Z86.711 and Moderate persistent asthma with (acute) exacerbation J45.41 [facility] [address] [place] [id number] 08/22/2024 Liana [facility] Acute laryngopharyng itis J06.0 and Moderate persistent asthma with (acute) exacerbation J45.41 L[facility] MD [address] [id number] 08/27/2024 Liana Richey Moderate persistent asthma with (acute) exacerbation J45.41 [facility] [address] [id number] 09/03/2024 Rachelamber Sanchez Moderate persistent asthma with (acute) exacerbation J45.41 and Acute upper respiratory infection, unspecified J06.9 [facility] MD [address] [id number] 11/30/2023 Rachel Sanchez Severe persistent as thma, uncomplicated J45.50 ; Acute upper respiratory infection, unspecified J06.9 ; Hypertensive chronic kidney disease with stage 1 through stage 4 chronic kidney disease, or unspecified chronic kidney disease I12.9 and Chronic kidney disease, stage 2 (mild) N18.2 Liana R[facility] MD [address] [id number] 12/05/2023 Rachel H[place]e Severe persistent as thma, uncomplicated J45.50 ; COVID-19 U07.1 ; Hypertensive chronic kidney disease with stage 1 through stage 4 chronic kidney disease, or unspecified chronic kidney disease I12.9 and Chronic kidney disease, stage 2 (mild) N18.2 [facility] [address] [id number] 01/19/2024 Liana R[facility]y Hypertensive chronic kidney disease [...] D deficiency, unspecified E55.9 L[facility] MD [address] [id number] 08/13/2024 Liana R[facility]y Hypertensive chronic kidney disease [...] D deficiency, unspecified E55.9 Liana R[facility] MD [address] [id number] 04/17/2024 Liana Richey Hypertensive chronic kidney disease [...] with (acute) exacerbation J45.41 [facility] MD [address] [id number] 10/10/2024 Liana R[facility] Severe persistent as thma with (acute) exacerbation J45.51 ; Hypertensive chronic [...] Z86.711 ; Vitamin D deficiency, unspecified E55.9 and Age-related nuclear cataract, bilateral H25.13 [facility] [address] [place] [address] [id number] 04/25/2024 Liana R[facility] Moderate persistent asthma with (acute) exacerbation J45.41 Liana [facility] MD [address] [id number] 05/02/2024 Liana Richey Moderate persistent asthma with (acute) exacerbation J45.41 Liana R[facility] MD [address] [id number] 05/09/2024 Liana Richey Moderate persistent asthma with (acute) exacerbation J45.41 Liana R[facility] MD [address] [id number] 10/17/2024 Liana Richey Severe persistent as thma with (acute) exacerbation J45.51 Liana R[facility] MD [address] [id number] 10/30/2024 Liana Richey Hypertensive chronic kidney disease with [...] D deficiency, unspecified E55.9 Liana Richey MD [address] [id number] 11/06/2024 Liana Richey Moderate persistent asthma, uncomplicated J45.40 Liana Richey MD [address] [id number] 11/13/2024 Liana Richey Moderate persistent asthma, uncomplicated J45.40 and Hypertensive chronic kidney disease with stage 1 through stage 4 chronic kidney disease, or unspecified chronic kidney disease I12.9 Liana Richey MD [address] [id number] 09/06/2024 Rachel Sanchez Moderate persistent asthma with (acute) exacerbation J45.41 and Lobar pneumonia, unspecified organism J18.1 Liana Richey MD [address] [id number] 09/12/2024 Liana Richey Moderate persistent asthma with (acute) exacerbation J45.41 ; Lobar pneumonia, unspecified organism J18.1 and Hypertensive chronic kidney disease with stage 1 through stage 4 chronic kidney disease, or unspecified chronic kidney disease I12.9 Liana Richey MD [address] [id number] 09/17/2024 Liana Richey Moderate persistent asthma with (acute) exacerbation J45.41 and Hypertensive chronic kidney disease with stage 1 through stage 4 chronic kidney disease, or unspecified chronic kidney disease I12.9 Liana Richey MD [address] [id number] 09/26/2024 Liana Richey Moderate persistent asthma with (acute) exacerbation J45.41 Liana Richey MD [address] [id number] 10/02/2024 Liana Richey Moderate persistent asthma with (acute) exacerbation J45.41 and Influenza due to identified novel influenza A virus with other respiratory manifestations J09.X2 Assessments Encounter Date Diagnosis (ICD Code) Assessment [...] pt can return back to work. 12/05/2023 COVID-19 (ICD-10 - U07.1) Patient's recent [...] she have any new symptoms or concerns 04/09/2024 Moderate persistent asthma with (acute) exacerbation [...] concern if her discomfort does not improve 12/05/2023 Severe persistent asthma, uncomplicated (ICD-10 - [...] return to work on December 13, 2023 04/17/2024 Hypertensive chronic kidney disease with stage [...] chest x-ray then treatment can be adjusted 08/22/2024 Acute laryngopharyngitis (ICD-10 - J06.0) She [...] prednisone and reevaluate her in the office. 09/02/2024 Moderate persistent asthma with (acute) exacerbation (ICD-10 - J45.41) 09/03/2024 Acute upper respiratory infection, unspecified (ICD-10 [...] ensure proper management of this asthma exacerbation. 09/06/2024 Lobar pneumonia, unspecified organism (ICD-10 - [...] determine if we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
== END 2024-11-26 09:22 | disposition home or self-care (01) ==
LOC: HO.HPS 08:55
PROVIDERS: PCP Internal Medicine; Visit Provider Hospitalist
DX: J45.50 Severe persistent asthma, uncomplicated (principal); R06.02 Shortness of breath; R91.8 Other nonspecific abnormal finding of lung field; J38.3 Other diseases of vocal cords; G47.33 Obstructive sleep apnea (adult) (pediatric); Z99.89 Dependence on other enabling machines and devices
CPT/HCPCS: 99214; G2211

== ENCOUNTER → 2024-11-26 08:54 | Outpatient (BNVA) | payer MEDICARE, OTHER, SELFPAY | PROVIDERS: PCP Internal Medicine; Visit Provider Hospitalist | DX: J45.50 Severe persistent asthma, uncomplicated (principal); R06.02 Shortness of breath; R91.8 Other nonspecific abnormal finding of lung field; J38.3 Other diseases of vocal cords; G47.33 Obstructive sleep apnea (adult) (pediatric); Z99.89 Dependence on other enabling machines and devices | CPT/HCPCS: 99212 ==

== ENCOUNTER 2025-01-09 08:25 | Outpatient (AMB) | payer MEDICARE, OTHER, SELFPAY ==
[2025-01-09 08:29] VITALS: BP 122/64; PULSE 85; O2SAT 98; BMI 27.0
--- NOTE | 2025-01-09 08:29 | A.OFFVIS_ITS ---
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 Code(s): J38.3 - Other diseases of vocal cords Category: Medical (5) RUDDY on CPAP: Code(s): G47.33 - Obstructive sleep apnea (adult) (pediatric); Z99.89 - Dependence on other enabling machines and devices Category: Medical (6) History of pulmonary embolism: Code(s): Z86.711 - Personal history of pulmonary embolism Category: Medical Plan continue Budesonide nebs Continue Trelegy Continue Singulair EUNICE as needed Tezspire biologic therapy APAP, 7-16-->7-18-->7-20-->10-16->11-17, AHI still elevated, does not tolerate higher pressures. Based on PSG titration she failed APAP, will be switching to BIPAP ([employer]) benzonates for cough Lovenox SC daily while long car ride due to higher risk for DVT/PE F/U 2-3 months Medications: New enoxaparin (Lovenox) 40 mg (0.4 mL) subcut DAILY 1.6 mL 0RF 4 days azithromycin 500 mg PO DAILY 5 tabs 0RF 5 days Coding Level of Care Code Est Pt Level 4 (76191) Complex EM visit Add On G2211 Diagnoses Severe persistent asthma without complication J45.50 Asthma complication type: uncomplicated Asthma persistence: persistent Asthma severity: severe Shortness of breath R06.02 Dyspnea type: shortness of breath Pulmonary nodules R91.8 Vocal cord dysfunction J38.3 RUDDY on CPAP G47.33; Z99.89 History of pulmonary embolism Z86.711 Time Spent (min) 18
--- OUTSIDE RECORDS SUMMARY | 2025-01-09 08:34 | XMS_ITS | Continuity of Care Document ---
Author Name [facility] Organization [facility] Care Team Providers Care Dice Spotter Name Role Phone [facility] Unavailable Unavailable Medications Combined list of outpatient [...] 17.0 Ambulat ory Pharmac y albuterol-i pratropium 100-20 mcg inhaler [4g] See Instruct ions, Inhale, # 12 g, 3 total refill(s ), Soft Stop Inhala tion (breat he in) Ordered 5 2024 12.0 Ambulat ory Pharmac y albuterol-i pratropium 2.5-0.5 mg/3 mL inhale soln [3mL] See Instruct ions, # 450 mL, 11 total refill(s ), Soft Stop Ordered 5 2024 450.0 Ambulat ory Pharmac y albuterol-i pratropium 2.5-0.5 mg/3 mL inhale soln [3mL] = 3 mL, every 4 hr, # 540 mL, 3 total refill(s ), Hard Stop Complet ed 10/19/2023 4 2023 540.0 Ambulat ory Pharmac y budesonide 1 mg/2 mL inhalation susp (2mL) = 1 mL, Nebulize d Inhalati on, BID, # 180 mL, 3 total refill(s ), Soft Stop Nebuli zed Inhala tion (inhal e using nebuli zer) Ordered 5 2024 180.0 Ambulat ory Pharmac y chlorthalid one 25 mg tablet See Instruct ions, # 45 EA, 3 total refill(s ), Hard Stop Ordered 05/09/2025 5 2024 45.0 Ambulat ory Pharmac y chlorthalid one [...] 4 2023 12.0 Ambulat ory Pharmac y desloratadi ne 5 mg tablet See Instruct ions, # 100 EA, 2 total refill(s ), Soft Stop Ordered 5 2024 100.0 Ambulat ory Pharmac y Eliquis 5 mg tablet See dose [...] 3 2022 2.0 Ambulat ory Pharmac y EPINEPHrine (eqv-epi-pe n) 0.3mg autoinjecto r kit [2EA] See Instruct ions, # 2 EA, 3 total refill(s ), Soft Stop Ordered 5 2024 2.0 Ambulat ory Pharmac y esomeprazol e DR 20 mg capsule 20 mg, Oral, Daily, # 90 EA, 3 total refill(s ), Hard Stop Oral (given by mouth) Complet ed 10/16/2024 4 2024 90.0 Ambulat ory Pharmac y esomeprazol e DR 20 mg capsule See dose instruct ions in comments , # 90 EA, 2 total refill(s ), Acute Complet ed 12/08/2022 3 2022 90.0 Ambulat ory Pharmac y Esomeprazol e Mag (Nexium Eq.) Capsule Conventiona l 20mg Oral Take on empty stomach. Take or use exactly as directed .Obtain advice for OTCs.Kiana patel. 10/16/2024 [id number] 4 [address] [place] [address] flutic/umec lid/vilant 100-62.5-25 mcg inh (60EA) = 1 inh(s), Inhale, Daily, # 180 EA, 3 total refill(s ), Soft Stop Inhala tion (breat he in) Ordered 5 2024 180.0 Ambulat ory Pharmac y Loratadine (Alavert ODT) Tablet 10 mg Oral May cause drowsine ss.Obtai n advice for OTCs. 10/16/2024 [id number] 4 [address] [place] [address] loratadine 10 mg tablet 10 mg, Oral, Daily, # 90 EA, 3 total refill(s ), Hard Stop Oral (given by mouth) Complet ed 10/16/2024 4 2024 90.0 Ambulat ory Pharmac y loratadine 10 [...] ory Pharmac y ramipril 10 mg capsule = 1 cap(s), Oral, Daily, # 90 EA, 3 total refill(s ), Hard Stop Oral (given by mouth) Ordered 05/09/2025 5 2024 90.0 Ambulat ory Pharmac y ramipril 10 [...] Inhala tion (breat he in) Complet ed 10/16/2024 4 2024 180.0 Ambulat ory Pharmac y TRELEGY ELLIPTA EQ 100-62.5-25 DSDV [28] Take or use exactly as directed .Obtain advice for OTCs.For inhalati on.Check with your doctor before becoming .Rinse mouth after use. 10/16/2024 [id number] 4 2023 [facility] Allergies, Adverse Reactions, Alerts Combined list of allergies from [facility] Defense and [facility] facilities. It does not include entries that were removed or entered in error. Substance Category Reaction Severity Reaction type Status Date Reported Comments Source ASPIRIN W/CODEINE (CODEINE PHOS/ASPIRIN) Drug allergy (disorder) Unknown active [address] [place] [address] Group aspirin-codei ne Propensity to adverse reactions to drug Unknown Active 8 Unknown Organizat ion codeine Propensity to adverse reactions to drug Unknown Active 8 Unknown Organizat ion CODEINE SULFATE (CODEINE SULF) Drug allergy (disorder) Unknown active [address] [place] [address] Group diazePAM Propensity to adverse reactions to drug Unknown Active 8 Unknown Organizat ion DIAZEPAM (DIAZEPAM) Drug allergy (disorder) Unknown active [address] [place] [address] Group oxyCODONE Propensity to adverse reactions to drug Unknown Active 8 Unknown Organizat ion penicillin V pota ium Propensity to adverse reactions to drug Unknown Active 8 Unknown Organizat ion PENICILLIN V POTASSIUM (PENICILLIN V POTASSIUM) Drug allergy (disorder) Unknown active [address] [place] [address] Group ROXICODONE (OXYCODONE HCL) Drug allergy (disorder) Unknown active [address] [place] [address] Group KATERINA-DUR (THEOPHYLLINE ANHYDROUS) Drug allergy (disorder) Unknown active [address] [place] [address] Group theophylline Propensity to adverse reactions to drug Unknown Active 8 Unknown Organizat ion Procedures Combined list of: 1) Procedures from Department of Veterans Affairs facilities going back up to thelast 18 months, not all [place] non-surgical procedures are included; 2) All procedures [...] section is an empty social history section. DoD Assessment and Plan Combined list of future care activities from Department of Defense and Veterans Affairs facilities (e.g., assessment and plan notes, appointments, orders, and referrals). Additional future care activities may be listed in the Plan of Care section. Result Assessment and Plan Date Source Assessment and Plan No data available for this section 01/09/2025 Ambulatory Pharmacy Functional Status Combined list of recent functional and cognitive assessments recorded at [facility] Functional [place] Measurement (FIM) Scale: 1 = Total Assistance (Subject = 0% +), 2 = Maximal Assistance (Subject = 25% +), 3 = Moderate Assistance (Subject = 50% +), 4 = Minimal Assistance (Subject = 75% +), 5 = Supervision, 6 = Modified [place] (Device), 7 = Complete [place] (Timely, Safely). Assessment Date/Time Source Assessment Type Assessment Skill Assessment Score Assessment Details No data available for this section
--- OUTSIDE RECORDS SUMMARY | 2025-01-09 08:36 | XMS_ITS | Clinical Summary ---
Author Organization [facility] Address [address] [place] [address] Phone Care Team Providers Care Summer Law Associate Name Role Phone RicheyAubreeOsei DDS Primary Care Provider [phone] Allergies Active Allergy Reactions Criticality Noted Date Comments Black Pepper Anaphylaxis High 09/27/2024 Diazepam Anxiety Medium 09/27/2024 Iodine Anaphylaxis High 09/27/2024 Latex Hives,Itching 09/27/2024 Levofloxacin Dizziness,Constipation Medium 09/27/2024 Metoclopramide 09/27/2024 Omeprazole 09/27/2024 Iohexol 09/27/2024 Paroxetine Hcl Anxiety 09/27/2024 Penicillin 09/27/2024 Roflumilast 09/27/2024 Sulfamethoxazole-Trimethoprim Anaphylaxis High 09/27 Tiotropium 09/27/2024 Trimethoprim Nausea Only Medium 09/27/2024 Turmeric Anaphylaxis High 09/27/2024 Medications fluorouraciL (EFUDEX) 5 % cream Apply 1 Application topically 2 (two) times a day. 5 Active montelukast (SINGULAIR) 10 mg tablet Take 1 tablet (10 mg total) by mouth at bedtime. 6 Active metroNIDAZOLE (METROCREAM) 0.75 % cream Apply 1 Application topically 2 (two) times a day. 5 Active Trelegy Ellipta 100-62.5-25 mcg inhaler Inhale 1 puff (100 mcg total) by mouth 1 (one) time each day. 4 Active budesonide (PULMICORT) 0.5 mg/2 mL nebulizer solution Take 2 mL (0.5 mg total) by nebulization 2 (two) times a day for 14 days. 28 each 5 Active ipratropium-alb uteroL (DUONEB) 0.5-2.5 mg/3 mL nebulizer solution Take 3 mL by nebulization 4 (four) times a day for 14 days. Discontinue when able to use Trelegy dose normally 168 mL 5 Active guaiFENesin (MUCINEX) 600 mg 12 hr tablet Take 1 tablet (600 mg total) by mouth every 12 (twelve) hours. Do not crush, chew, or split. 60 each 11 5 10/01/19 26 Active albuterol 2.5 mg /3 mL (0.083 %) nebulizer solution Take 3 mL (2.5 mg total) by nebulization every 6 (six) hours if needed for wheezing or shortness of breath. 120 each 5 Active Active Problems Problem Noted Date Diagnosed Date Pulmonary embolism ([facility] V24, [facility] V28) Overview (09/28/2024): provoked - 1 week postoperative from right rotator cuff repair - expected potential complication due to high risk nature of surgery Influenza A 09/28/2024 Acute hypoxemic respiratory failure ([facility] V24, [facility] V28) 09/27/2024 Carcinoma in situ of skin of face 09/24/2024 Basal cell carcinoma (BCC) of face 07/30/2024 Finding of above normal blood pressure 2 Asthma 01/25/2017 Seasonal allergic rhinitis 10/15/2016 Surgical History Surgery Date Site/Laterality Comments TONSILLECTOMY [...] Date Smoking Tobacco: Never Smokeless Tobacco: Never Alcohol Use Standard Drinks/Week Comments Not Currently 0 (1 standard drink = 0.6 oz pur e alcohol) Interpersonal Safety Answer Date Record ed Physical Abuse 09/28/2024 Verbal Abuse 09/28/2024 Comments Unknown Sex and Gender Information Value Date Recorded Sex Assigned at Not on file Legal Sex Female 1:47 AM EST Gender Identity Not on file Sexual Orientation Not on file Obstetrics History Last Filed Vital Signs Vital Sign Reading Time Taken Comments Blood Pressure 125/77 09/30/2024 7:33 AM EDT Pulse 67 09/30/2024 11:52 AM EDT Temperature 36.1 C (96.9 F) 09/30/2024 7:33 AM EDT Respiratory Rate 18 09/30/2024 11:52 AM EDT Oxygen Saturation 94% 09/30/2024 2:13 PM EDT Inhaled Oxygen Concentration - - Weight 79.8 kg (176 lb) 09/27/2024 1:01 PM EDT Height 172.7 cm (5' 8 ) 09/27/2024 1:01 PM EDT Body Mass Index 26.76 09/27/2024 1:01 PM EDT Plan of Treatment Health Maintenance Due Date Last Done Comments Breast Cancer Screening 1955 DTaP,Tdap,and Td Vaccines (1 - Tdap) 1976 Zoster Vaccines (1 of 2) 2007 RSV Immunization Adult Patients (1 - Risk 60-74 years 1-dose series) 2017 Colorectal Cancer Screening: Colonoscopy 05/09/2022 Hepatitis C Screening 05/09/2022 Medicare Annual Wellness Visit 05/09/2022 Osteoporosis Screening (Bone Density Screening) 05/09/2022 Social Influencers of Health Screening 05/09/2022 COVID-19 Vaccine ( season) 2024 09/03/2020, 08/12/2020 Depression Screening 06/06/2024 Influenza Vaccine (#1) 2025 , 03/18/2023, 03/17/2022, Additional history exists Falls Risk Assessment 09/30/2025 09/30/2024 Pneumococcal Vaccine: 50+ Years Completed 04/06/2023, 10/04/2010 HIB Vaccines Aged Out No longer eligi [...] to complete this topic RSV Immunization Patients Under 20 months Aged Out No longer eligible based on patient's age to complete this topic Varicella Vaccines Aged Out No longer eligible based on patient's age to complete this topic Insurance [facility] MEDICARE Advance Directives * Full Code - Default (Latest Code Status on File) Date Activated Date Inactivated Comments 09/27/2024 10:43 PM 09/30/2024 7:18 PM This is ord er is used when code status has not been discussed with the patient, or code status is otherwise unknown/unconfirmed To update the patient's code status, place a code status order. Do not modify or discontinue any currently active code status orders. Care Teams Summer Law Associate Relationship Specialty Start Date End Date Osei Richey DDS [address] [place] [id number] PCP - General Dental Ink Maker 09/27/24
--- OUTSIDE RECORDS SUMMARY | 2025-01-09 08:36 | XMS_ITS | Patient Health Record ---
Author Organization [facility] Address [address] [id number] Care Team Providers Care Account Coordinator Name Role Phone Liana [facility] Primary Care Provider [phone] Rachel Sanchez Unavailable [phone] Allergies Allergen (clinical drug ingredient) Drug/Non Drug [...] Active Results Component Value Reference Range Notes Respiratory Panel w/ SARS-Co [id number] Reviewed date:09/04/2024 12:48:02 PM Interpretation: Performing Lab:[facility], [address], [place], Phone - [phone], Director - Steve Notes/Report: Clinical Information:SRC: Adenovirus [...] may represent atelectasis, infiltrate, or scar. WSN: [id number] Ordering Physician: Liana Richey Dictated By: Mateusz VERA , Michelle Berman Comp. Metabolic Panel (14)-3 66317 Reviewed date:01/30/2024 06:50:01 PM Interpretation: Performing Lab:[facility] [place], [address] [place] [address], Phone - [phone], Director - Steve Notes/Report: Glucose 80 70-99 mg/dL BUN 23 [...] ALT (SGPT) 18 0-32 IU/L Albumin/Creatinine Ratio,Uri ne-[id number] Reviewed date:01/30/2024 06:50:01 PM Interpretation: Performing Lab:[facility], [address] [place] [address], Phone - [phone], Director - Steve Notes/Report: Creatinine, Urine 47.5 Not Estab. mg/dL Albumin, Urine <3.0 Not Estab. ug/mL Alb/Creat Ratio <6 0-29 mg/g creat Normal: 0 - 29 Moderately increased: 30 - 300 Severely increased: >300 [id number] Reviewed date:01/30/2024 06:50:01 PM Interpretation: Performing Lab:[facility], [address] [place] [address], Phone - [phone], Director - Steve Notes/Report: D-Dimer 0.46 0.00-0.49 mg/L FEU According to the assay automobile sales representative's published package insert, a normal (<0.50 mg/L FEU) D-dimer result in conjunction with a non-high clinical probability assessment, excludes deep vein thrombosis (DVT) and pulmonary embolism (PE) with high sensitivity. . D-dimer values increase with age and this can make VTE exclusion of an older population difficult. To address this, the [employer], based on best available [...] year old 0.80 mg/L FEU. Vitamin D, 45-[id number]-[id number] Reviewed date:01/30/2024 06:50:01 PM Interpretation: Performing Lab:[facility] [place], [address] [place] [address], [place], Phone - [phone], Director - Steve Notes/Report: Vitamin D, 25-Hydroxy 26.2 30.0-100.0 ng/mL Vitamin D deficiency has been defined by the [place] [employer] and an Endocrine Society practice guideline as a level of serum 25-OH vitamin D less than 20 ng/mL (1,2). The Endocrine Society went on to further define vitamin D insufficiency as a level between 21 and 29 ng/mL (2). 1. IOM ([place] [employer]). 2010. Dietary reference intakes for calcium and D. [place]: The National Academies Press. 2. Daniel MF, Peace CAMACHO, Vamsi LOPEZ, et al. Evaluation, treatment, and prevention of vitamin D deficiency: an Endocrine Society clinical practice guideline. JCEM. 2010; 96(7):1911-30. Urinalysis, Complete-[id number] Reviewed date:01/30/2024 06:50:01 PM Interpretation: Performing Lab:[facility] [place], [address] [facility], Phone - [phone], Director - Steve Notes/Report: Specific [place] 1.011 1.005-1.030 pH 7.0 5.0-7.5 Urine-Color Yellow [...] seen /lpf Bacteria None seen None seen/Few Comp. Metabolic Panel (14)-3 Reviewed date:12/14/2024 03:03:51 PM Interpretation: Performing Lab:[facility], [address], [place], Phone - [phone], Director - Steve Notes/Report: Glucose 92 70-99 mg/dL BUN 15 8-27 mg/dL Creatinine 0.82 0.57-1.00 mg/dL eGFR 78 >59 mL/min/1.73 BUN/Creatinine Ratio 18 12-28 Sodium 142 134-144 mmol/L Potassium 3.6 3.5-5.2 mmol/L Chloride 100 96-106 mmol/L Carbon Dioxide, Total 25 20-29 mmol/L Calcium 9.9 8.7-10.3 mg/dL Protein, Total 6.3 6.0-8.5 g/dL Albumin 4.1 3.9-4.9 g/dL Globulin, Total 2.2 1.5-4.5 g/dL Bilirubin, Total 0.2 0.0-1.2 mg/dL Alkaline Phosphatase 86 44-121 IU/L AST (SGOT) 18 0-40 IU/L ALT (SGPT) 17 0-32 IU/L [id number] Reviewed date:12/14/2024 03:03:51 PM Interpretation: Performing Lab:[facility] [place], [address] [facility], [place], Phone - [phone], Director - Steve Notes/Report: D-Dimer 0.74 0.00-0.49 mg/L FEU According to the assay automobile sales representative's published package insert, a normal (<0.50 mg/L FEU) D-dimer result in conjunction with a non-high clinical probability assessment, excludes deep vein thrombosis (DVT) and pulmonary embolism (PE) with high sensitivity. . D-dimer values increase with age and this can make VTE exclusion of an older population difficult. To address this, the [employer], based on best available [...] year old 0.80 mg/L FEU. Vitamin D, 94-[id number] Reviewed date:12/14/2024 03:03:51 PM Interpretation: Performing Lab:[facility] [place], [address] [facility], [place], Phone - [phone], Director - Steve Notes/Report: Vitamin D, 25-Hydroxy 39.1 30.0-100.0 ng/mL Vitamin D deficiency has been defined by the [place] [employer] and an Endocrine Society practice guideline as a level of serum 25-OH vitamin D less than 20 ng/mL (1,2). The Endocrine Society went on to further define vitamin D insufficiency as a level between 21 and 29 ng/mL (2). 1. IOM ([place] [employer]). 2010. Dietary reference intakes for calcium and D. [place]: The National Academies Press. 2. Daniel MF, [place], Vamsi LOPEZ, et al. Evaluation, treatment, and prevention of vitamin D deficiency: an Endocrine Society clinical practice guideline. JCEM. 2010; 967):1911-30. Comp. Metabolic Panel (14)-3 09271 Reviewed date:08/15/2024 05:35:31 PM Interpretation: Performing Lab:[facility], [facility], Phone - [phone], Director - [facility] Notes/Report: Glucose 100 70-99 mg/dL BUN 15 [...] ALT (SGPT) 18 0-32 IU/L Albumin/Creatinine Ratio,Uri ne-[id number] Reviewed date:08/15/2024 05:35:31 PM Interpretation: Performing Lab:[facility], [address] [facility], [place], Phone - [phone], Director - MDdry Notes/Report: Creatinine, Urine 37.0 Not Estab. mg/dL Albumin, Urine <3.0 Not Estab. ug/mL Alb/Creat Ratio <8 0-29 mg/g creat Normal: 0 - 29 Moderately increased: 30 - 300 Severely increased: >300 Urinalysis, Complete-[id number] Reviewed date:08/15/2024 05:35:31 PM Interpretation: Performing Lab:[facility] [place], [address], [place], Phone - [phone], Director - Steve Notes/Report: Specific [place] 1.009 1.005-1.030 pH 7.0 5.0-7.5 Urine-Color Yellow [...] There is no acute cardiopulmonary disease. WSN: [id number] Ordering Physician: Liana R[facility] Dictated By: Mateusz VERA , Michelle Berman MM Digital Mammo Screening Reviewed date:07/19/2024 10:07:53 [...] (Negative) Lay letter mailed to patient WSN: [id number] Ordering Physician: Liana Riche[facility] Dictated By: Ariseto Pierce MD HCV Antibody-[id number] Reviewed date:04/22/2024 07:39:03 AM Interpretation: Performing Lab:[facility] [place], [address] [place] [address], Phone - [phone], Director - CTChery Notes/Report: Hep C Virus Ab Non Reactive Non Reactive HCV antibody alone does not differentiate between previously resolved infection and active infection. Equivocal and Reactive HCV antibody results should be followed up with an HCV RNA test to support the diagnosis of active HCV infection. LP+Non-HDL Cholesterol-[id number] 5 Reviewed date:04/22/2024 07:39:03 AM Interpretation: Performing Lab:[facility] [place], [address] [place] [address], [place], Phone - [phone], Director - eleni Notes/Report: Cholesterol, Total 215 100-199 mg/dL Triglycerides 146 0-149 mg/dL HDL Cholesterol 71 >39 mg/dL VLDL Cholesterol Manuel 25 5-40 mg/dL LDL Chol Calc (NIH) 119 0-99 mg/dL Non-HDL Cholesterol 144 0-129 mg/dL Comp. Metabolic Panel (14)-3 85410 Reviewed date:04/22/2024 07:39:03 AM Interpretation: Performing Lab:[facility] [place], [address] [place] [address], [place], Phone - [phone], Director [facility]/Report: Glucose 86 70-99 mg/dL BUN 18 [...] ALT (SGPT) 16 0-32 IU/L Albumin/Creatinine Ratio,Uri ne-[id number] Reviewed date:04/22/2024 07:39:03 AM Interpretation: Performing Lab:[facility] [place], [address] [place] [address], Phone - [phone], Director - Steve Notes/Report: Creatinine, Urine 58.8 Not Estab. mg/dL Albumin, Urine <3.0 Not Estab. ug/mL Alb/Creat Ratio <5 0-29 mg/g creat Normal: 0 - 29 Moderately increased: 30 - 300 Severely increased: >300 [id number] Reviewed date:04/22/2024 07:39:03 AM Interpretation: Performing Lab:[facility] [place], [address] [place] [address], Phone - [phone], Director - Steve Notes/Report: D-Dimer 0.35 0.00-0.49 mg/L FEU According to the assay automobile sales representative's published package insert, a normal (<0.50 mg/L FEU) D-dimer result in conjunction with a non-high clinical probability assessment, excludes deep vein thrombosis (DVT) and pulmonary embolism (PE) with high sensitivity. . D-dimer values increase with age and this can make VTE exclusion of an older population difficult. To address this, the [employer], based on best available [...] year old 0.80 mg/L FEU. Vitamin D, 25-Qrqxchm-[id number] Reviewed date:04/22/2024 07:39:03 AM Interpretation: Performing Lab:[facility], [address] [place] [address], [place], Phone - [phone], Director - Steve Notes/Report: Vitamin D, 25-Hydroxy 23.6 30.0-100.0 ng/mL Vitamin D deficiency has been defined by the [place] [employer] and an Endocrine Society practice guideline as a level of serum 25-OH vitamin D less than 20 ng/mL (1,2). The Endocrine Society went on to further define vitamin D insufficiency as a level between 21 and 29 ng/mL (2). 1. IOM ([place] [employer]). 2010. Dietary reference intakes for calcium and D. [place]: The National Academies Press. 2. Daniel MF, [place], Vamsi LOPEZ, et al. Evaluation, treatment, and prevention of vitamin D deficiency: an Endocrine Society clinical practice guideline. JCEM. 2010; 96(7):1911-30. CBC With Differential/Platel et-[id number] Reviewed date:04/22/2024 07:39:03 AM Interpretation: Performing Lab:[facility], [address] [place] [address], [place], Phone - [phone], Director - Steve Notes/Report: WBC 12.0 3.4-10.8 [...] Immature Grans (Abs) 0.1 0.0-0.1 x10E3/uL Urinalysis, Complete-[id number] Reviewed date:04/22/2024 07:39:03 AM Interpretation: Performing Lab:[facility], [address] [place] [address], Phone - [phone], Director - Steve Notes/Report: Specific [place] 1.011 1.005-1.030 pH 7.5 5.0-7.5 Urine-Color Yellow [...] None seen /lpf Bacteria Few None seen/Few [id number] Reviewed date:04/10/2024 06:14:28 PM Interpretation: Performing Lab:[facility] [place], [address] [place] [address], Phone - [phone], Director - Steve Notes/Report: D-Dimer 0.42 0.00-0.49 mg/L FEU According to the assay automobile sales representative's published package insert, a normal (<0.50 mg/L FEU) D-dimer result in conjunction with a non-high clinical probability assessment, excludes deep vein thrombosis (DVT) and pulmonary embolism (PE) with high sensitivity. . D-dimer values increase with age and this can make VTE exclusion of an older population difficult. To address this, the [employer], based on best available [...] old 0.80 mg/L FEU. PDF Report Reviewed date:01/30/2024 06:50:01 PM Interpretation: Performing Lab:[facility] [place], [address] [place] [address], [place], Phone - [phone], Director - Steve Notes/Report: LP+Non-HDL Cholesterol-[id number] 5 Reviewed date:12/14/2024 03:03:51 PM Interpretation: Performing Lab:[facility], [address], [place], Phone - [phone], Director - Steve Notes/Report: Cholesterol, Total 233 100-199 mg/dL Triglycerides 227 0-149 mg/dL HDL Cholesterol 48 >39 mg/dL VLDL Cholesterol Manuel 41 5-40 mg/dL LDL Chol Calc ([facility]) 144 0-99 mg/dL Non-HDL Cholesterol 185 0-129 mg/dL Reason For Referral No Information Medications Medication SIG (Take, Route, Frequency, Duration) Notes Start Date End Date Status Tezspire 210 MG/1.91ML as directed Subcutaneous Active Trelegy Ellipta 100-62.5-25 MCG/ACT 1 puff Inhalation Once a day Active NexIUM 20 MG 1 capsule Orally Onc e a day; Duration: 90 days Active Ramipril 10 MG TAKE 1 CAPSULE BY MOUTH EVERY DAY FOR 90 DAYS; Duration: 90 Active Clarinex 5 MG 1 tablet Orally Once a day; Duration: 90 days 10/17/2024 10/12/2025 Active Nebulizer System All-In-One - as directed; Duration: 90 days 09/06/2024 Active Singulair 10 MG 1 tablet in the evening Orally Once a day; Duration: 90 days Active EpiPen 2-Leonardo 0.3 MG/0.3ML as directed Injection; Duration: 90 days 10/19/2022 Active Famotidine 20 MG Oral; Duration: 30 Days Active Fluorouracil 5 % 1 application Externally Twice a day Active Combivent Respimat 20-100 MCG/ACT 1 puff Inhalation every 6 hrs; Duration: 90 days As needed Active Budesonide 0.5 MG/2ML Inhalation; Durati on: 90 Days Active Budesonide 1 MG/2ML 1 mL Inhalation Twic e a day; Duration: 90 days Active Albuterol Sulfate (2.5 MG/3ML) 0.083% Inhalation; Duration: 25 Days Active ProAir RespiClick 108 (90 Base) MCG/ACT 2 puff as needed every 6 hrs; Duration: 90 days Active predniSONE 10 MG TAKE 1 TABLET WITH FOOD OR MILK ORALLY 4 TIMES A DAY 30 DAYS; Duration: 30 Not-Taking Ipratropium-Albuterol 0.5-2.5 (3) MG/3ML 3 mL Inhalation every 4 hrs; Duration: 90 days As needed Active Erythromycin 2 % 1 application Externally Twice a day; Duration: 30 days 01/19/2023 Active Tylenol Extra Strength 500 MG 1 tablet as needed Orally every 6 hrs Active Chlorthalidone 25 MG 0.5 Tablet Orally O nce a day; Duration: 90 days Active Vitamin D 125 MCG (5000 UT) 1 capsule Orally Once a day Active Mucinex 600 MG 1 tablet as needed Orally every 12 hrs Not-Taking Immunizations Vaccine Route Administration Date Status Comme nts Influenza Unknown 04/05/2016 Administered Influenza Unknown 03/09/2019 Administered Influenza Unknown 03/20/2020 Administered Influenza vaccine Flucelvax quadrivalent Unknown 03/18/2023 Administered Influenza Vaccine, Seasonal, Quadrivalent, Recombinant, Preservative Free Unknown 04/09/2021 Administered Influenza Vaccine, Seasonal, Quadrivalent, Recombinant, Preservative Free Unknown 04/09/2021 Administered Influenza, seasonal, injectable (split), for 3 yrs and up IM Intramuscular 03/06/2018 Administered LGOIL-98-Rvecia Vaccine Unknown 08/12/2020 Administered LLSKA-48-Lujlwd Vaccine Unknown 09/03/2020 Administered *Tdap Unknown 09/08/2016 Administered Date estimated Done at [facility] *PREVNAR 20 IM Intramuscular 04/06/2023 Administered *Influenza-Fluzone Unknown 04/04/2024 Administered *Xygsbwzpk-Opok-IQ IM Intramuscular 03/17/2022 Administere d Influenza-Afluria (IIV4) Unknown 03/24/2017 Administered MMR Unknown [...] Status W/U Status Risk Notes Problem Thrombophilia (840365269) Other thrombophilia (D68.69) Active confirmed Problem Eosinophilia (172805551) Eosinophilia (D72.1) Active confirmed Problem Vitamin D deficiency (55517423) Vitamin D deficiency, unspecified (E55.9) Active confirmed Problem Intolerance to lactose (finding) (533030891) Lactose intolerance, unspecified (E73.9) Active confirmed Problem Mixed hyperlipidemia (852940471) Mixed hyperlipidemia (E78.2) Active confirmed Problem Posttraumatic stress disorder (87827977) Post-traumatic stress disorder, chronic (F43.12) Active confirmed Problem Obstructive sleep apnea syndrome (47192881) Obstructive sleep apnea (adult) (pediatric) (G47.33) Active confirmed Problem Brachial plexus disorder (0549782) Brachial plexus disorders (G54.0) Active confirmed Problem Carpal tunnel syndrome (10971984) Carpal tunnel syndrome, right upper limb (G56.01) Active confirmed Problem Nuclear senile cataract (659043868) Age-related nuclear cataract, bilateral (H25.13) Active confirmed Problem Chronic kidney disease due to hypertension (172547677535694) Hypertensive chronic kidney disease with stage 1 through stage 4 chronic kidney disease, or unspecified chronic kidney disease (I12.9) Active confirmed Problem Uncomplicated moderate persistent asthma (777714462) Moderate persistent asthma, uncomplicated (J45.40) Active confirmed Problem Uncomplicated severe persistent asthma (225352479) Severe persistent asthma, uncomplicated (J45.50) Active confirmed Problem Gastro-esophageal reflux disease without esophagitis (556445214) Gastro-esophageal reflux disease without esophagitis (K21.9) Active confirmed Problem Lumbosacral spondylosis without myelopathy (65177165) Other spondylosis with radiculopathy, lumbar region (M47.26) Active confirmed Problem Displacement of lumbar intervertebral disc without myelopathy (70947918) Other intervertebral disc displacement, lumbar region (M51.26) Active confirmed Problem Chronic kidney disease stage 2 (044785105) Chronic kidney disease, stage 2 (mild) (N18.2) Active confirmed Problem History of pulmonary embolus (479180648) Personal history of pulmonary embolism (Z86.711) Active confirmed Problem Allergy to penicillin (67509225) Allergy status to penicillin (Z88.0) Active confirmed Problem History of polyp of colon (situation) (862622333) Personal history of colonic polyps (Z86.010) Active confirmed Problem Spinal stenosis of lumbar region (81080752) Spinal stenosis, lumbar region without neurogenic claudication (M48.061) Active confirmed Problem Gastroesophageal reflux disease with esophagitis (disorder) (057304380) Gastro-esophageal reflux disease with esophagitis, without bleeding (K21.00) Active confirmed Problem Body mass index 30.00 to 34.99 (498311451834780) Body mass index [BMI] 31.0-31.9, adult (Z68.31) Active confirmed Problem Exacerbation of moderate persistent asthma (disorder) (770670714) Moderate persistent asthma with (acute) exacerbation (J45.41) Inactive confirmed Problem Palpitations (14320799) Palpitations (R00.2) Inactive confirmed Problem Oropharyngeal dysphagia (98395512) Dysphagia, pharyngeal phase (R13.13) Inactive confirmed Problem Candidiasis of mouth (88006558) Candidal stomatitis (B37.0) Problem resolved confirmed Problem Benign paroxysmal positional vertigo (468271438) Benign paroxysmal vertigo, left ear (H81.12) Problem resolved confirmed Problem Aural vertigo, left ear (H81.312) Problem resolved confirmed Problem influenza due to influenza a virus with upper respiratory signs (disorder) (288187982913140) Influenza due to identified novel influenza A virus with other respiratory manifestations (J09.X2) Problem resolved confirmed Problem Acute severe exacerbation of severe persistent asthma (873381855) Severe persistent asthma with (acute) exacerbation (J45.51) Problem resolved confirmed Problem Skin ulcer of calf (043264403) 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) Problem resolved confirmed Problem Derangement of posterior horn of medial meniscus (1583978) Derangement of posterior horn of medial meniscus due to old tear or injury, left knee (M23.222) Problem resolved confirmed Problem Nontraumatic rotator cuff tear (disorder) (425313041) Incomplete rotator cuff tear or rupture of right shoulder, not specified as traumatic (M75.111) Problem resolved confirmed Problem Full thickness rotator cuff tear (073878464) Complete rotator cuff tear or rupture of right shoulder, not specified as traumatic (M75.121) Problem resolved confirmed Problem Concussion with no loss of consciousness (32019511) Concussion without loss of consciousness, initial encounter (S06.0X0A) Problem resolved confirmed Problem Strain of muscle of right shoulder (82824643994908565) Strain of muscle(s) and tendon(s) of the rotator cuff of right shoulder, initial encounter (S46.011A) Problem resolved confirmed Problem Single subsegmental pulmonary embolism without acute cor pulmonale (I26.93) Problem resolved confirmed Problem COVID19 VENANCIO-Viru s Identified (U07.1) Problem resolved confirmed Vital Signs Heart Rate 95 /min 12/12/2024 Temperature 96.7 degrees Fahrenheit 12/12/2024 Blood pressure diastolic 60 mm Hg 12/12/2024 Oximetry 98 % 12/12/2024 Height 65 in 12/12/2024 Blood pressure systolic 116 mm Hg 12/12/2024 Weight 173 lbs 10/30/2024 BMI 28.79 kg/m2 10/30/2024 Encounters Encounter Location Date Provider Diagnosis [facility] [address] [facility] [address] [place] [id number] 01/17/2024 [facility] MD [address] [facility] [address] [place] [address] [id number] 04/06/2024 [facility] [address] [place] [address] [place] [address] [id number] 04/25/2024 Liana Richey MD [address] [place] [address] [id number] 05/11/2024 Liana Richey MD [address] [place] [address] [id number] 09/02/2024 Liana Richey Moderate persistent asthma with (acute) exacerbation J45.41 [facility] [address] [facility] [address] [place] [address] [id number] 09/03/2024 [facility] MD [address] [facility] [address] [place] [address] [id number] 09/03/2024 L[facility] MD [address] [facility] [address] [place] [address] [id number] 09/03/2024 L[facility] MD [address] [facility] [address] [place] [address] [id number] 09/04/2024 [facility] [address] [facility] [address] [place] [address] [id number] 09/27/2024 [facility] [address] [facility] [address] [place] [address] [id number] 10/03/2024 [facility] [address] [facility] [address] [place] [address] [id number] 02/23/2024 [facility] MD [address] [facility] [address] [place] [address] [id number] 02/23/2024 [facility] [address] [place], [place] [id number] 05/18/2024 [facility] [address] [place], [place] [id number] 05/29/2024 [facility] [address] [place], [place] [id number] 06/01/2024 [facility] [address] [place], [place] [id number] 06/11/2024 [facility] [address] [place], [place] [id number] 07/03/2024 [facility] [address] [place], [place] [id number] 07/03/2024 [facility] [address] [place], [place] [id number] 08/24/2024 [facility] [address] [place], [place] [id number] 08/24/2024 [facility] [address] [place], [place] [id number] 08/24/2024 [facility] [address] [place], [place] [id number] 08/27/2024 [facility] [address] [place], [place] [id number] 09/28/2024 [facility] [address] [place], [place] [id number] 09/28/2024 [facility] [address] [place], [place] [id number] 10/02/2024 [facility] [address] [place], [place] [id number] 10/02/2024 [facility] [address] [place], [place] [id number] 10/30/2024 [facility] [address] [place], [place] [id number] 10/30/2024 [facility] [address] [place], [place] [id number] 04/09/2024 Liana Richey Personal history of pulmonary embolism Z86.711 and Moderate persistent asthma with (acute) exacerbation J45.41 Liana Richey MD [address] [id number] 08/22/2024 Liana Richey Acute laryngopharyng itis J06.0 and Moderate persistent asthma with (acute) exacerbation J45.41 Liana Richey MD [address] [id number] 08/27/2024 Liana Richey Moderate persistent asthma with (acute) exacerbation J45.41 Liana Richey MD [address] [id number] 09/03/2024 Rachel Sanchez Moderate persistent asthma with (acute) exacerbation J45.41 and Acute upper respiratory infection, unspecified J06.9 Liana Richey MD [address] [id number] 01/19/2024 Liana Richey Hypertensive chronic kidney disease [...] D deficiency, unspecified E55.9 Liana Richey MD [address] [id number] 08/13/2024 Liana Richey Hypertensive chronic kidney disease [...] D deficiency, unspecified E55.9 Liana Richey MD [address] [id number] 12/12/2024 Liana Richey Hypertensive chronic kidney disease with [...] D deficiency, unspecified E55.9 Liana Richey MD [address] [id number] 04/17/2024 Liana Richey Hypertensive chronic kidney disease [...] with (acute) exacerbation J45.41 Liana Richey MD [address] [id number] 10/10/2024 Liana Richey Severe persistent as thma [...] Age-related nuclear cataract, bilateral H25.13 Liana TAPIA [address] [place] [address] [id number] 04/25/2024 Liana Richey Moderate persistent asthma with (acute) exacerbation J45.41 Liana Richey MD [address] [id number] 05/02/2024 Liana Richey Moderate persistent asthma with (acute) exacerbation J45.41 Liana Richey MD [address] [id number] 05/09/2024 Liana Richey Moderate persistent asthma with (acute) exacerbation J45.41 Liana Richey MD [address] [id number] 10/17/2024 Liana Richey Severe persistent as thma with (acute) exacerbation J45.51 Liana Richey MD [address] [id number] 10/30/2024 Liana Richey Hypertensive chronic kidney disease [...] and Vitamin D deficiency, unspecified E55.9 Liana TAPIA [address] [place] [address] [id number] 11/06/2024 Liana Richey Moderate persistent asthma, uncomplicated J45.40 Liana Richey MD [address] [id number] 11/13/2024 Liana Richey Moderate persistent asthma,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
== END 2025-01-09 09:01 | disposition home or self-care (01) ==
LOC: HO.HPS 08:26
PROVIDERS: PCP Internal Medicine; Visit Provider Hospitalist
DX: J45.50 Severe persistent asthma, uncomplicated (principal); R06.02 Shortness of breath; R91.8 Other nonspecific abnormal finding of lung field; J38.3 Other diseases of vocal cords; G47.33 Obstructive sleep apnea (adult) (pediatric); Z99.89 Dependence on other enabling machines and devices; Z86.711 Personal history of pulmonary embolism
CPT/HCPCS: 99214; G2211

== ENCOUNTER → 2025-01-09 08:25 | Outpatient (BNVA) | payer MEDICARE, OTHER, SELFPAY | PROVIDERS: PCP Internal Medicine; Visit Provider Hospitalist | DX: J45.50 Severe persistent asthma, uncomplicated (principal); R06.02 Shortness of breath; R91.8 Other nonspecific abnormal finding of lung field; J38.3 Other diseases of vocal cords; G47.33 Obstructive sleep apnea (adult) (pediatric); Z86.711 Personal history of pulmonary embolism; Z99.89 Dependence on other enabling machines and devices | CPT/HCPCS: 99212 ==

== ENCOUNTER 2025-01-23 08:06 | Outpatient (REF) | payer MEDICARE, OTHER, SELFPAY ==
--- NOTE | 2025-01-23 08:12 | PFT_ITS ---
Indication: Asthma Spirometry FEV1 to FVC 66% pre bronchodilators and 71% post bronchodilators; FEV1 1.62 L; FVC 2.28 L. There is a significant response to bronchodilators noted. Also to note the FEF 25-75 is decreased to 33% predicted Lung Volumes Total lung capacity 67% predicted Diffusion Capacity DLCO 92% predicted Comparisons None Interpretation There is a partially reversible obstruction consistent with a diagnosis of severe persistent asthma. Does have a significant response to bronchodilators noted. Small airways disease or significantly decreased consistent with her diagnosis of asthma. The patient also has a restrictive ventilatory defect consistent with mild to moderate restrictive lung disease. Need to consider underlying parenchymal or neuromuscular conditions. Diffusing capacity is within normal limits. Clinical correlation warranted. MTDD
--- OUTSIDE RECORDS SUMMARY | 2025-01-23 08:29 | XMS_ITS | Clinical Summary ---
Author Organization [facility] Address [address] [place] [address] Phone Care Team Providers Care Lathe Setup Operator Name Role Phone RicheyAubreeOsei DDS Primary Care Provider [phone] Allergies Active Allergy Reactions Criticality Noted Date [...] Problem Noted Date Diagnosed Date Pulmonary embolism ([facility] V24, [facility] V28) Overview (09/28/2024): provoked - 1 week postoperative from right rotator cuff repair - expected potential complication due to high risk nature of surgery Influenza A 09/28/2024 Acute hypoxemic respiratory failure ([facility] V24, [facility] V28) 09/27/2024 Carcinoma in situ of skin [...] patient's age to complete this topic Insurance [facility] MEDICARE Advance Directives * Full Code - [...] currently active code status orders. Care Teams Lathe Setup Operator Relationship Specialty Start Date End Date Osei Richey DDS [address] [place] [id number] PCP - General Dental Lithostripper 09/27/24
--- OUTSIDE RECORDS SUMMARY | 2025-01-23 08:29 | XMS_ITS | Patient Health Record ---
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 stable in the low 200s. 04/09/2024 Other This note was created with [...] and INFLUENZA Rapid Assay 09/04/19 25 Urinalysis, [id number] 10/17/2023 Urinalysis, Complete-[id number] 12/12/2024 Albumin/Creatinine Ratio,Urine-[id number] Albumin/Creatinine Ratio,Urine-[id number] Future Test Test Name Order Date COMPLETE URINALYSIS 12/05/2019 COMPREHENSIVE METABOLIC PANEL 12/05/2019 LIPID PANEL W REFLEX TO DLDL 12/05/2019 MMR (MEASLES, MUMPS, RUBELLA) IGG TITER 12/05/2019 Next Appt Details Provider Name:Liana Richey , 04/30/2025 09:00:00 AM, [address] [place] [address], [address], [place], [place], [phone], Insurance Providers Payer Name Payer Address Payer Phone Subscriber Number Group Number Insured Name Patient Relationship to Insured Coverage Start Date Coverage End Date MEDICARE [address] [place] [address] [id number] Lorenza Bojorquez Self - patient is the insured [facility] [address] [place], [place] [id number] Lorenza Bojorquez Self - patient is the insured [employer] [facility] [address] [place] [address] [id number] Lorenza Bojorquez Self - patient is the [...]
[2025-01-23 09:02] VITALS: PULSE 74; O2SAT 99
== END 2025-01-23 08:07 | disposition home or self-care (01) ==
LOC: HO.RESP 08:06
PROVIDERS: PCP Internal Medicine; Visit Provider Hospitalist
DX: J45.50 Severe persistent asthma, uncomplicated (principal)
CPT/HCPCS: 94010; 94640; 94727; 94729

== ENCOUNTER → 2025-01-23 08:12 | Outpatient (BNV) | payer MEDICARE, OTHER, SELFPAY | PROVIDERS: PCP Internal Medicine; Visit Provider Hospitalist | DX: J45.909 Unspecified asthma, uncomplicated (principal) | CPT/HCPCS: 94060; 94727; 94729 ==

== ENCOUNTER 2025-04-24 08:32 | Outpatient (AMB) | payer MEDICARE, OTHER, SELFPAY ==
[2025-04-24 08:36] VITALS: BP 120/62; PULSE 65; O2SAT 96; BMI 27.0
--- NOTE | 2025-04-24 08:36 | MHC.OFFVIS ---
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 - Severe persistent asthma, uncomplicated (2) Dyspnea: Code(s): R06.00 - Dyspnea, unspecified Category: Medical Qualifiers: Dyspnea type: shortness of breath Qualified Code(s): R06.02 - Shortness of breath (3) Pulmonary nodules: Code(s): R91.8 - Other nonspecific abnormal finding of lung field Category: Medical (4) Vocal cord dysfunction: Code(s): J38.3 - Other diseases of vocal cords Category: Medical (5) RUDDY on CPAP: Code(s): G47.33 - Obstructive sleep apnea (adult) (pediatric); Z99.89 - Dependence on other enabling machines and devices Category: Medical (6) History of pulmonary embolism: Code(s): Z86.711 - Personal history of pulmonary embolism Category: Medical Plan continue Budesonide nebs Continue Trelegy Continue Singulair EUNICE as needed Tezspire biologic therapy APAP, 7-16-->7-18-->7-20-->10-16->11-17, AHI still elevated, does not tolerate higher pressures. Based on PSG titration she failed APAP, will be switching to BIPAP ([facility]) benzonates for cough F/U 2-3 months Coding Level of Care Code Est Pt Level 4 (22123) Complex EM visit Add On G2211 Diagnoses Severe persistent asthma without complication J45.50 Asthma complication type: uncomplicated Asthma persistence: persistent Asthma severity: severe Shortness of breath R06.02 Dyspnea type: shortness of breath Pulmonary nodules R91.8 Vocal cord dysfunction J38.3 RUDDY on CPAP G47.33; Z99.89 History of pulmonary embolism Z86.711 Time Spent (min) 18
== END 2025-04-24 09:07 | disposition home or self-care (01) ==
LOC: HO.HPS 08:33
PROVIDERS: PCP Internal Medicine; Visit Provider Hospitalist
DX: J45.50 Severe persistent asthma, uncomplicated (principal); R06.02 Shortness of breath; R91.8 Other nonspecific abnormal finding of lung field; J38.3 Other diseases of vocal cords; G47.33 Obstructive sleep apnea (adult) (pediatric); Z99.89 Dependence on other enabling machines and devices; Z86.711 Personal history of pulmonary embolism
CPT/HCPCS: 99214; G2211

== ENCOUNTER → 2025-04-24 08:32 | Outpatient (BNVA) | payer MEDICARE, OTHER, SELFPAY | PROVIDERS: PCP Internal Medicine; Visit Provider Hospitalist | DX: J45.50 Severe persistent asthma, uncomplicated (principal); G47.33 Obstructive sleep apnea (adult) (pediatric); Z99.89 Dependence on other enabling machines and devices; R06.02 Shortness of breath; R91.8 Other nonspecific abnormal finding of lung field; J38.3 Other diseases of vocal cords | CPT/HCPCS: 99212 ==